=== PATIENT | male | born 1940 | race Caucasian/White ===

== ENCOUNTER 2023-06-28 13:32 | Outpatient (RCR) | payer MEDICARE, BC, SELFPAY | END 2023-06-28 23:59 | disposition home or self-care (01) | LOC: CRHB 13:32 | PROVIDERS: ATTENDING PHYSICIAN Internal Medicine Cardiovascular Disease; FAMILY PHYSICIAN Internal Medicine | DX: I25.10 Atherosclerotic heart disease of native coronary artery without angina pectoris (principal); Z95.1 Presence of aortocoronary bypass graft | CPT/HCPCS: G0422; G0423 ==

== ENCOUNTER → 2023-07-01 09:54 | Outpatient (REF) | payer MEDICARE, BC, SELFPAY ==
[2023-07-01 10:15] VITALS: BP 144/80; BP_SYST 94
[2023-07-01 10:38] VITALS: BP 136/65; BP_SYST 77
[2023-07-01 11:00] VITALS: BP_SYST 81
[2023-07-01 11:35] VITALS: BP 104/55; BP_SYST 81
[2023-07-01 12:12] LABS: Body Fluid Mononuclear 97.8 %; Body Fluid Polymorphonuclear 2.2 %; Body Fluid WBC 696 /CUMM
[2023-07-01 12:16] LABS: Body Fluid Second Tech BP
[2023-07-01 12:18] VITALS: BP 112/66
[2023-07-01 12:24] LABS: Body Fluid Albumin 2.3 g/dl; Body Fluid LDH 142 U/L
[2023-07-01 13:36] LABS: Body Fluid Triglycerides 1123 mg/dl
== END ==
LOC: RADI 09:54
PROVIDERS: ATTENDING PHYSICIAN Internal Medicine Cardiovascular Disease; FAMILY PHYSICIAN Internal Medicine
DX: J90 Pleural effusion, not elsewhere classified (principal); J93.9 Pneumothorax, unspecified
CPT/HCPCS: 88305; 32555; 71045; 82042; 83615; 84478; 88112; 89051

== ENCOUNTER → 2023-07-08 10:50 | Outpatient (REF) | payer MEDICARE, BC, SELFPAY | LOC: RAD 10:50 | PROVIDERS: ATTENDING PHYSICIAN Internal Medicine Cardiovascular Disease; FAMILY PHYSICIAN Internal Medicine; REFERRING PHYSICIAN Internal Medicine | DX: I44.30 Unspecified atrioventricular block (principal); I25.10 Atherosclerotic heart disease of native coronary artery without angina pectoris; I10 Essential (primary) hypertension; R91.8 Other nonspecific abnormal finding of lung field; I65.22 Occlusion and stenosis of left carotid artery | CPT/HCPCS: 71046 ==

== ENCOUNTER → 2023-07-10 11:19 | Outpatient (REF) | payer MEDICARE, BC, SELFPAY ==
[2023-07-10 11:52] LABS: % Basophils 0.5 % (0-2); % Eosinophils 0.9 % (0-6); % Immature Granulocytes 0.4 % (0-0.5); % Lymphocytes 9.5 % (20.5-51.1); % Monocytes 7.8 % (1.7-9.3); % Neutrophils 80.9 % (42.2-75.2); Absolute Eosinophils 0.1 10^3/uL (0-0.7); Absolute Lymphocytes 0.7 10^3/uL (1.2-3.4); Absolute Monocytes 0.6 10^3/uL (0.1-0.6); Absolute Neutrophils 6.2 10^3/uL (1.4-6.5); Hematocrit 42.1 % (39.0-52.0); Hemoglobin 13.9 g/dL (13.0-18.0); Mean Corpuscular Hgb 28.3 pg (27.0-31.0); Mean Corpuscular Volume 85.7 fL (80.0-94.0); Mean Platelet Volume 9.6 fL (7.4-10.4); Nucleated Red Blood Cells % 0 % (-); Platelet Count 237 10^3/uL (130-400); Red Blood Cell Count 4.91 10^6/uL (4.70-6.10); Red Cell Dist. Width 14.9 % (11.5-14.5); White Blood Cell Count 7.7 10^3/uL (4.8-10.8)
[2023-07-10 11:54] LABS: Urine Albumin Trace (Neg - Trace); Urine Bilirubin Negative (Negative); Urine Character Clear (Clear); Urine Color Yellow; Urine Glucose Negative (Negative); Urine Ketone Negative (Negative); Urine Leukocyte Negative (Negative); Urine Nitrite Negative (Negative); Urine Occult Blood Negative (Negative); Urine Urobilinogen Negative (Neg - 1+); Urine pH 6.5 (5.0-9.0)
[2023-07-10 12:18] LABS: ALT (SGPT) 11 U/L (0-50); AST (SGOT) 21 U/L (17-59); Albumin 3.7 g/dl (3.5-5.0); Alkaline Phosphatase 75 U/L (38-126); Blood Urea Nitrogen 13 mg/dl (9-20); Calcium 9.6 mg/dl (8.4-10.2); Carbon Dioxide 27 mmol/L (22-30); Chloride 102 mmol/L (98-107); Glucose 121 mg/dl (70-99); HDL Cholesterol 73 mg/dl; LDL Cholesterol, Calculated 79 mg/dl; Potassium 3.9 mmol/L (3.5-5.1); Sodium 140 mmol/L (135-145); Total Bilirubin 0.6 mg/dl (0.2-1.3); Total Cholesterol 169 mg/dl (50-199); Total Protein 6.7 g/dl (6.3-8.2); Triglyceride 86 mg/dl (10-149); Very Low Density Lipoprotein 17 mg/dl (0-30); eGFR > 60.00
[2023-07-10 12:39] LABS: Urine Mucus Few; Urine Sperm Seen; Urine Squamous Cell 0-2 /LPF (Few)
[2023-07-10 12:40] LABS: Urine Bacteria Few (Negative); Urine Red Blood Cell 0-2 /HPF (0-2); Urine White Cell 0-2 /HPF (0-5)
== END ==
LOC: REG 11:19
PROVIDERS: ATTENDING PHYSICIAN Internal Medicine
DX: I65.29 Occlusion and stenosis of unspecified carotid artery (principal); I10 Essential (primary) hypertension; E78.00 Pure hypercholesterolemia, unspecified
CPT/HCPCS: 36415; 80053; 80061; 81003; 81015; 85025

== ENCOUNTER → 2023-07-13 08:55 | Outpatient (REF) | payer MEDICARE, BC, SELFPAY | LOC: RAD 08:55 | PROVIDERS: ATTENDING PHYSICIAN Internal Medicine; FAMILY PHYSICIAN Family Medicine | DX: J94.0 Chylous effusion (principal) | CPT/HCPCS: 71250 ==

== ENCOUNTER → 2023-08-15 11:25 | Outpatient (REF) | payer MEDICARE, BC, SELFPAY | LOC: RAD 11:25 | PROVIDERS: ATTENDING PHYSICIAN Nurse Practitioner Family; FAMILY PHYSICIAN Internal Medicine | DX: J90 Pleural effusion, not elsewhere classified (principal); R06.02 Shortness of breath | CPT/HCPCS: 71046 ==

== ENCOUNTER → 2023-08-20 12:11 | Outpatient (REF) | payer MEDICARE, BC, SELFPAY ==
[2023-08-20 13:44] LABS: Body Fluid pH 7.44
[2023-08-20 13:57] LABS: Body Fluid Glucose 96 mg/dl; Body Fluid LDH 125 U/L; Body Fluid Protein 4.5 g/dl
[2023-08-20 14:42] LABS: Body Fluid Mononuclear 98.4 %; Body Fluid Polymorphonuclear 1.6 %; Body Fluid WBC 811 /CUMM
[2023-08-20 14:43] LABS: Body Fluid Second Tech BP
== END ==
LOC: RADI 12:11
PROVIDERS: ATTENDING PHYSICIAN Nurse Practitioner Family; FAMILY PHYSICIAN Internal Medicine
DX: J90 Pleural effusion, not elsewhere classified (principal)
CPT/HCPCS: 88305; 32555; 71045; 82945; 83615; 83986; 84157; 87015; 87070; 87102; 87116; 87205; 87206; 88112; 88341; 88342; 89051

== ENCOUNTER 2023-08-22 11:43 | Emergency (ER) | payer MEDICARE, BC, SELFPAY ==
[2023-08-22 11:52] VITALS: BP 103/81
[2023-08-22 12:10] LABS: % Basophils 0.4 % (0-2); % Eosinophils 0.5 % (0-6); % Immature Granulocytes 0.1 % (0-0.5); % Lymphocytes 7.2 % (20.5-51.1); % Monocytes 12.5 % (1.7-9.3); % Neutrophils 79.3 % (42.2-75.2); Absolute Lymphocytes 0.6 10^3/uL (1.2-3.4); Absolute Neutrophils 6.4 10^3/uL (1.4-6.5); Hematocrit 43.8 % (39.0-52.0); Mean Corpuscular Hgb 27.7 pg (27.0-31.0); Mean Corpuscular Volume 86.6 fL (80.0-94.0); Nucleated Red Blood Cells % 0 % (-); Platelet Count 216 10^3/uL (130-400); Red Blood Cell Count 5.06 10^6/uL (4.70-6.10); Red Cell Dist. Width 14.8 % (11.5-14.5); White Blood Cell Count 8.1 10^3/uL (4.8-10.8)
[2023-08-22 12:23] LABS: ALT (SGPT) 10 U/L (0-50); AST (SGOT) 18 U/L (17-59); Albumin 4.1 g/dl (3.5-5.0); Alkaline Phosphatase 63 U/L (38-126); Blood Urea Nitrogen 15 mg/dl (9-20); Calcium 9.1 mg/dl (8.4-10.2); Carbon Dioxide 25 mmol/L (22-30); Chloride 104 mmol/L (98-107); Glucose 125 mg/dl (70-99); Sodium 136 mmol/L (135-145); Total Bilirubin 0.8 mg/dl (0.2-1.3); Total Protein 7.1 g/dl (6.3-8.2); eGFR > 60.00
--- NOTE | 2023-08-22 14:23 | ED.GENMED ---
History of Present Illness
General
Chief Complaint: Post Operative Problem(s)
Time Seen by Provider: 08/22/23 13:14
Travel History
Have you had any contact with someone who has COVID-19?: No
Do you have any symptoms of coronavirus? Fever > 100 degrees, chills, cough, shortness of breath, sore throat, loss of taste or smell, muscle aches, or headache?: No
History of Present Illness
History of Present Illness:
82 yo male presents for evaluation of blood tinged sputum. He had 1 episode of blood-tinged sputum this morning. He is concerned because he had a thoracentesis 2 days ago. 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
complication of his recent CABG procedure that was done at [facility] in February. He currently denies any chest pain or difficulty breathing. He does take Plavix and aspirin.
Past History
Past History
ED Past Medical History: HTN and Hypercholesterolemia
ED Past Surgical History: Other (carotid artery surgery )
Social History
Tobacco: Non-smoker
Personal:
Living: with family
Review of Systems
Review of Systems
Allergies reviewed?: Yes
All Other Systems: ROS reviewed and negative except as documented in HPI and ROS
Phy Exam
Physical Exam
Physical Exam:
GEN: Well appearing, NAD, WDWN
HEENT: Oral mucosa moist, no scleral icterus, no evidence for oropharyngeal bleeding, some evidence of recent bleeding to the left anterior nare
Cardiac: Regular rate
Lung: No respiratory distress, no tachypnea, lungs clear to auscultation with the exception of the left lower field crackles are noted. Left posterior lateral thoracentesis site has mild ecchymosis with no large hematoma and no active bleeding
MSK: No gross deformity or injuries
Skin: Good color, no pallor or jaundice, no rashes
Neuro: AO x3, moves all extremities freely
Psych: Calm, cooperative
Course
Orders/Labs/Results
Orders:
Orders
08/22/23 12:01
Complete Blood Count/With Diff Urgent
Comprehensive Metabolic Panel Urgent
08/22/23 13:44
CR Chest - 2 Views Urgent
Comment:
Reason For Exam: hemoptysis
Abnormal Lab Results
08/22/23
12:01
MCHC 32.0 L g/dL
(33.0-37.0)
RDW 14.8 H %
(11.5-14.5)
Absolute Lymphs (auto) 0.6 L 10^3/uL
(1.2-3.4)
Absolute Monos (auto) 1.0 H 10^3/uL
(0.1-0.6)
Neutrophils % 79.3 H %
(42.2-75.2)
Lymphocytes % 7.2 L %
(20.5-51.1)
Monocytes % 12.5 H %
(1.7-9.3)
Glucose 125 H mg/dl
(70-99)
08/22/23 12:01
08/22/23 12:01
Vital Signs
Initial and Last Documented VS:
Initial Vital Signs
Temp Pulse Resp BP Pulse Ox
98.0 F 91 18 103/81 97
08/22/23 11:52 08/22/23 11:52 08/22/23 11:52 08/22/23 11:52 08/22/23 11:52
Last Documented Vital Signs
Temp Pulse Resp BP Pulse Ox
98.0 F 91 18 124/61 96
08/22/23 11:52 08/22/23 14:39 08/22/23 14:39 08/22/23 14:39 08/22/23 14:39
MDM/Problems Addressed
MDM/Problems Addressed:
Do not feel that the thoracentesis contributed to the blood-tinged sputum. Could be residual blood from the left nare however overall the patient is clinically well with no hypoxia and no increased work of breathing. Chest x-ray shows a relatively
stable effusion. Recommend he follow-up as an outpatient with his crime scene technician. Any worsening hemoptysis should warrant return to the emergency department
*Critical Care Note
Total Time (30-74mins, 75-104mins- exclusive of procedures): Not Applicable
ED Attending Note
-
Portions of this chart may have been created with voice recognition software.� Occasional wrong word or��sound alike� substitutions may have occurred due to the inherent limitations of voice recognition software.
Discharge Plan
Departure
Patient Disposition: Home (Routine Discharge)
Date of Disposition: 08/22/23
Time of Disposition: 14:48
Patient with high blood pressure during this ER visit?: No
Discharge Problem:
Blood-tinged sputum
Instructions: Coughing up blood
Prescriptions:
No Action
clopidogrel 75 MG tablet
75 mg PO DAILY
alprazolam 0.25 MG tablet
0.25 mg PO TID
gemfibrozil 600 MG tablet
600 mg PO BID
ezetimibe 10 MG tablet
10 mg PO HS
rosuvastatin [Crestor] 40 MG tablet
40 mg PO BID
aspirin 81 mg Tablet,Delayed Release (Dr/Ec)
81 mg PO DAILY
nifedipine 90 mg Tablet Extended Release 24hr
90 mg PO DAILY
niacin 250 mg Tablet
1,000 mg PO DAILY
metoprolol tartrate 25 mg Tablet
25 mg PO BID
Referrals:
Myles Gillis MD [Family Provider] -
Activity Restrictions/Additional Instructions:
The amount of blood you coughed up is not concerning
Your repeat X ray shows some residual fluid however no sign of lung injury
Please follow up with your crime scene technician if symptoms persist
Interventions
Interventions:
*Risk Screen - Suicide Last Done: 08/22/23 11:52
*General Assessment Last Done: 08/22/23 11:52
*Neglect/Abuse Screening Last Done: 08/22/23 11:52
*ED COVID-19 Vaccine History Last Done: 08/22/23 11:52
[2023-08-22 14:37] VITALS: BMI 23.9
[2023-08-22 14:39] VITALS: BP 124/61
== END 2023-08-22 15:50 | disposition home or self-care (01) ==
LOC: EMR 11:43
PROVIDERS: Emergency Medicine; EMERGENCY PHYSICIAN Emergency Medicine; FAMILY PHYSICIAN Internal Medicine
DX: R04.2 Hemoptysis (principal)
CPT/HCPCS: 99284; 71046; 80053; 85025

== ENCOUNTER → 2023-09-25 10:21 | Outpatient (REF) | payer MEDICARE, BC, SELFPAY | LOC: RCS 10:21 | PROVIDERS: ATTENDING PHYSICIAN Internal Medicine Cardiovascular Disease; FAMILY PHYSICIAN Internal Medicine; REFERRING PHYSICIAN Internal Medicine | DX: I44.30 Unspecified atrioventricular block (principal) | CPT/HCPCS: 93225; 93226 ==

== ENCOUNTER → 2023-10-02 10:43 | Outpatient (REF) | payer MEDICARE, BC, SELFPAY | LOC: RAD 10:43 | PROVIDERS: ATTENDING PHYSICIAN Internal Medicine | DX: I71.40 Abdominal aortic aneurysm, without rupture, unspecified (principal); I65.29 Occlusion and stenosis of unspecified carotid artery; I65.23 Occlusion and stenosis of bilateral carotid arteries | CPT/HCPCS: 76770; 93880 ==

== ENCOUNTER → 2023-10-14 09:02 | Outpatient (REF) | payer MEDICARE, BC, SELFPAY ==
[2023-10-14 10:24] LABS: % Basophils 0.7 % (0-2); % Eosinophils 1.9 % (0-6); % Immature Granulocytes 0.4 % (0-0.5); % Lymphocytes 11.1 % (20.5-51.1); % Monocytes 9.5 % (1.7-9.3); % Neutrophils 76.4 % (42.2-75.2); Absolute Basophils 0.1 10^3/uL (0-0.2); Absolute Eosinophils 0.1 10^3/uL (0-0.7); Absolute Lymphocytes 0.8 10^3/uL (1.2-3.4); Absolute Monocytes 0.7 10^3/uL (0.1-0.6); Absolute Neutrophils 5.7 10^3/uL (1.4-6.5); Hematocrit 42.5 % (39.0-52.0); Mean Corp Hgb Conc. 32.9 g/dL (33.0-37.0); Mean Corpuscular Hgb 28.3 pg (27.0-31.0); Mean Platelet Volume 10.1 fL (7.4-10.4); Nucleated Red Blood Cells % 0 % (-); Platelet Count 233 10^3/uL (130-400); Red Blood Cell Count 4.94 10^6/uL (4.70-6.10); White Blood Cell Count 7.5 10^3/uL (4.8-10.8)
[2023-10-14 10:39] LABS: Urine Albumin Trace (Neg - Trace); Urine Bilirubin Negative (Negative); Urine Character Clear (Clear); Urine Color Yellow; Urine Glucose Negative (Negative); Urine Ketone Negative (Negative); Urine Leukocyte Negative (Negative); Urine Nitrite Negative (Negative); Urine Occult Blood Negative (Negative); Urine Urobilinogen Negative (Neg - 1+); Urine pH 6.5 (5.0-9.0)
[2023-10-14 10:59] LABS: ALT (SGPT) 11 U/L (0-50); AST (SGOT) 19 U/L (17-59); Alkaline Phosphatase 65 U/L (38-126); Blood Urea Nitrogen 17 mg/dl (9-20); Calcium 9.7 mg/dl (8.4-10.2); Carbon Dioxide 27 mmol/L (22-30); Chloride 104 mmol/L (98-107); Glucose 100 mg/dl (70-99); HDL Cholesterol 77 mg/dl; LDL Cholesterol, Calculated 75 mg/dl; Potassium 4.2 mmol/L (3.5-5.1); Sodium 139 mmol/L (135-145); Total Bilirubin 0.6 mg/dl (0.2-1.3); Total Cholesterol 166 mg/dl (50-199); Total Protein 6.9 g/dl (6.3-8.2); Triglyceride 74 mg/dl (10-149); Very Low Density Lipoprotein 14 mg/dl (0-30); eGFR > 60.00
== END ==
LOC: REG 09:02
PROVIDERS: ATTENDING PHYSICIAN Internal Medicine
DX: E78.00 Pure hypercholesterolemia, unspecified (principal); I10 Essential (primary) hypertension; I65.29 Occlusion and stenosis of unspecified carotid artery
CPT/HCPCS: 36415; 80053; 80061; 81003; 85025

== ENCOUNTER → 2023-10-25 08:37 | Outpatient (REF) | payer MEDICARE, BC, SELFPAY ==
[2023-10-25 10:19] LABS: HDL Cholesterol 78 mg/dl; LDL Cholesterol, Calculated 79 mg/dl; Total Cholesterol 177 mg/dl (50-199); Triglyceride 100 mg/dl (10-149); Very Low Density Lipoprotein 20 mg/dl (0-30)
== END ==
LOC: REG 08:37
PROVIDERS: ATTENDING PHYSICIAN Internal Medicine Cardiovascular Disease; FAMILY PHYSICIAN Internal Medicine; REFERRING PHYSICIAN Internal Medicine
DX: I10 Essential (primary) hypertension (principal); I65.23 Occlusion and stenosis of bilateral carotid arteries; I25.10 Atherosclerotic heart disease of native coronary artery without angina pectoris; I65.22 Occlusion and stenosis of left carotid artery
CPT/HCPCS: 36415; 80061

== ENCOUNTER → 2024-01-17 11:38 | Outpatient (REF) | payer MEDICARE, BC, SELFPAY ==
[2024-01-17 12:57] LABS: % Basophils 0.7 % (0-2); % Eosinophils 2.2 % (0-6); % Immature Granulocytes 0.3 % (0-0.5); % Lymphocytes 14.7 % (20.5-51.1); % Monocytes 9.7 % (1.7-9.3); % Neutrophils 72.4 % (42.2-75.2); Absolute Basophils 0.1 10^3/uL (0-0.2); Absolute Eosinophils 0.2 10^3/uL (0-0.7); Absolute Lymphocytes 1.1 10^3/uL (1.2-3.4); Absolute Monocytes 0.7 10^3/uL (0.1-0.6); Absolute Neutrophils 5.4 10^3/uL (1.4-6.5); Hematocrit 42.8 % (39.0-52.0); Hemoglobin 14.9 g/dL (13.0-18.0); Mean Corp Hgb Conc. 34.8 g/dL (33.0-37.0); Mean Corpuscular Hgb 29.3 pg (27.0-31.0); Mean Corpuscular Volume 84.3 fL (80.0-94.0); Mean Platelet Volume 9.9 fL (7.4-10.4); Nucleated Red Blood Cells % 0 % (-); Platelet Count 197 10^3/uL (130-400); Red Blood Cell Count 5.08 10^6/uL (4.70-6.10); Red Cell Dist. Width 14.2 % (11.5-14.5); White Blood Cell Count 7.4 10^3/uL (4.8-10.8)
[2024-01-17 13:11] LABS: Urine Albumin Trace (Neg - Trace); Urine Bilirubin Negative (Negative); Urine Character Clear (Clear); Urine Color Yellow; Urine Glucose Negative (Negative); Urine Ketone Negative (Negative); Urine Leukocyte Negative (Negative); Urine Nitrite Negative (Negative); Urine Occult Blood Negative (Negative); Urine Specific Gravity 1.015 (<1.030); Urine Urobilinogen Negative (Neg - 1+); Urine pH 6.5 (5.0-9.0)
[2024-01-17 13:35] LABS: ALT (SGPT) 16 U/L (0-50); AST (SGOT) 25 U/L (17-59); Albumin 4.5 g/dl (3.5-5.0); Alkaline Phosphatase 69 U/L (38-126); Blood Urea Nitrogen 17 mg/dl (9-20); Calcium 9.6 mg/dl (8.4-10.2); Carbon Dioxide 25 mmol/L (22-30); Chloride 104 mmol/L (98-107); Glucose 100 mg/dl (70-99); HDL Cholesterol 84 mg/dl; LDL Cholesterol, Calculated 86 mg/dl; Sodium 137 mmol/L (135-145); Total Cholesterol 188 mg/dl (50-199); Total Protein 7.3 g/dl (6.3-8.2); Triglyceride 94 mg/dl (10-149); Very Low Density Lipoprotein 18 mg/dl (0-30); eGFR > 60.00
[2024-01-20 04:25] LABS: Lipoprotein a (Lp a) 218 mg/dL (<=29)
== END ==
LOC: REG 11:38
PROVIDERS: ATTENDING PHYSICIAN Internal Medicine; REFERRING PHYSICIAN Internal Medicine
DX: I10 Essential (primary) hypertension (principal); I65.29 Occlusion and stenosis of unspecified carotid artery; E78.00 Pure hypercholesterolemia, unspecified
CPT/HCPCS: 36415; 80053; 80061; 81003; 83695; 85025

== ENCOUNTER → 2024-02-15 09:35 | Outpatient (REF) | payer MEDICARE, BC, SELFPAY ==
[2024-02-15 10:24] LABS: % Basophils 0.5 % (0-2); % Eosinophils 1.5 % (0-6); % Immature Granulocytes 0.3 % (0-0.5); % Lymphocytes 11.5 % (20.5-51.1); % Monocytes 7.5 % (1.7-9.3); % Neutrophils 78.7 % (42.2-75.2); Absolute Eosinophils 0.1 10^3/uL (0-0.7); Absolute Lymphocytes 0.9 10^3/uL (1.2-3.4); Absolute Monocytes 0.6 10^3/uL (0.1-0.6); Absolute Neutrophils 6.3 10^3/uL (1.4-6.5); Hematocrit 45.1 % (39.0-52.0); Hemoglobin 15.4 g/dL (13.0-18.0); Mean Corp Hgb Conc. 34.1 g/dL (33.0-37.0); Mean Corpuscular Hgb 30.1 pg (27.0-31.0); Mean Corpuscular Volume 88.1 fL (80.0-94.0); Mean Platelet Volume 9.8 fL (7.4-10.4); Nucleated Red Blood Cells % 0 % (-); Platelet Count 171 10^3/uL (130-400); Red Blood Cell Count 5.12 10^6/uL (4.70-6.10); Red Cell Dist. Width 14.2 % (11.5-14.5)
[2024-02-15 10:50] LABS: ALT (SGPT) 11 U/L (0-50); AST (SGOT) 21 U/L (17-59); Albumin 4.4 g/dl (3.5-5.0); Alkaline Phosphatase 68 U/L (38-126); Blood Urea Nitrogen 20 mg/dl (9-20); Calcium 9.5 mg/dl (8.4-10.2); Carbon Dioxide 26 mmol/L (22-30); Chloride 102 mmol/L (98-107); Glucose 104 mg/dl (70-99); HDL Cholesterol 87 mg/dl; LDL Cholesterol, Calculated 88 mg/dl; Potassium 4.4 mmol/L (3.5-5.1); Sodium 140 mmol/L (135-145); Total Cholesterol 198 mg/dl (50-199); Triglyceride 118 mg/dl (10-149); Very Low Density Lipoprotein 23 mg/dl (0-30); eGFR > 60.00
[2024-02-15 10:55] LABS: Urine Albumin Trace (Neg - Trace); Urine Bilirubin 1+ (Negative); Urine Character Clear (Clear); Urine Color Yellow; Urine Glucose Negative (Negative); Urine Ketone Negative (Negative); Urine Leukocyte Negative (Negative); Urine Nitrite Negative (Negative); Urine Occult Blood Negative (Negative); Urine Specific Gravity 1.015 (<1.030); Urine Urobilinogen Negative (Neg - 1+)
== END ==
LOC: REG 09:35
PROVIDERS: ATTENDING PHYSICIAN Internal Medicine; REFERRING PHYSICIAN Internal Medicine
DX: D64.9 Anemia, unspecified (principal); E78.00 Pure hypercholesterolemia, unspecified; E87.8 Other disorders of electrolyte and fluid balance, not elsewhere classified
CPT/HCPCS: 36415; 80053; 80061; 81003; 85025

== ENCOUNTER → 2024-03-06 09:57 | Outpatient (REF) | payer MEDICARE, BC, SELFPAY ==
[2024-03-06 10:57] LABS: Blood Urea Nitrogen 21 mg/dl (9-20); Calcium 9.6 mg/dl (8.4-10.2); Carbon Dioxide 24 mmol/L (22-30); Chloride 102 mmol/L (98-107); Glucose 104 mg/dl (70-99); Potassium 4.4 mmol/L (3.5-5.1); Sodium 139 mmol/L (135-145); eGFR > 60.00
== END ==
LOC: REG 09:57
PROVIDERS: ATTENDING PHYSICIAN Surgery Vascular Surgery; FAMILY PHYSICIAN Internal Medicine
DX: I71.43 Infrarenal abdominal aortic aneurysm, without rupture (principal)
CPT/HCPCS: 36415; 80048

== ENCOUNTER 2024-03-15 17:37 | Inpatient (IN) | payer MEDICARE, BC, SELFPAY ==
[2024-03-15] VITALS (12 sets, daily range): BP systolic 121–180; BP diastolic 76–100; BMI 25.7; BMI 25.6
--- NOTE | 2024-03-15 15:47 | ED.CVA ---
History of Present Illness
General
Chief Complaint: CVA/TIA Symptoms
Source: patient, records and ambulance crew
Time Seen by Provider: 03/15/24 15:46
Onset of Stroke Symptoms
Onset of symptoms known: Yes
Date of onset of symptoms: 03/15/24
Time of onset of symptoms: 13:45
History of Present Illness
History of Present Illness:
3:49 PM 83-year-old male brought to the emergency department by medics, history obtained by medics, awaiting family to arrive. He reportedly was seen at approximately 1:45 PM and noted to have the abrupt onset of aphasia. Medics note that
Accu-Chek was 107. They are unclear of prior medical history or whether or not patient is on anticoagulation. They did not note focal weakness, facial droop, or speech abnormalities in regards to slurred speech. They state that with every
question or interaction he simply states 'okay'. History very limited from patient given his expressive aphasia. He was immediately brought to CT scan.
Past History
Past History
ED Past Medical History: CAD, HTN, Hypercholesterolemia and Other (Chylothorax)
ED Past Surgical History: Other (carotid artery surgery, CABG)
Social History
Tobacco: Non-smoker
Alcohol: None
Drug: None
Personal:
Living: with family
Phy Exam
Physical Exam
Physical Exam:
GENERAL: Alert , in no apparent distress
EYE: pupils equal and reactive, EOMI, no nystagmus, no photophobia
NECK: Supple, no significant adenopathy.
ENT: o/p clr, mmm.
CARDIAC: Regular rate and rhythm .
LUNGS: Clear breath sounds bilaterally, no acute respiratory distress, no wheezes/rales/rhonchi
ABDOMEN: Soft, without focal tenderness, no r/g, no cvat
NEUROLOGICAL: Alert and oriented, no focal neuro deficits except for severe aphasia, motor intact, sensation intact to light touch, etc.
SKIN: Warm and dry, skin intact.
MUSCULOSKELETAL: No edema, well perfused.
PSYCH: Normal and appropriate interaction.
Scores
NIH Stroke Score
Level of Consciousness: 0 - Alert
LOC Questions: 2-Neither correct
LOC Commands: 0-Performs both correctly
Best Horizontal Gaze: 0-Normal
Visual Sherwood: 0=Normal, no visual loss
Facial Palsy: 0=Normal, symmetrical
Motor - Right Arm: 0=No drift 10 seconds
Motor - Left Arm: 0=No drift 10 seconds
Motor - Right Le-No drift 5 seconds
Motor - Left Le-No drift 5 seconds
Limb Ataxia: 0-Absent
Sensation: 0-Normal
Best Language: 2-Severe aphasia
Dysarthria: 0-Normal
Extinction and Inattention: 0-No abnormality
Total Score:: 4
Course
Orders/Labs/Results
Orders:
Orders
03/15/24 15:46
Electrocardiogram (*1) Stat
Reason for Study: Other
Other Reason for Exam: neuro symptoms
CT HEAD STROKE ALERT W/o Cont Urgent
Comment:
Reason For Exam: APHASIA
CT HEAD/NECK ANG STROKE ALERT Urgent
Comment:
Reason For Exam: APHASIA
Cardiac Monitoring- Treatment ONCE
EKG- Treatment ONCE
03/15/24 16:09
Complete Blood Count/No Diff Urgent
Comprehensive Metabolic Panel Urgent
PTT Urgent
Prothrombin Time Urgent
Troponin I Urgent
Abnormal Lab Results
03/15/24 03/15/24
16:05 16:09
RBC 4.61 L 10^6/uL
(4.70-6.10)
BUN 23 H mg/dl
(9-20)
Glucose 108 H mg/dl
(70-99)
POC Glucose 100 H mg/dl
(70-99)
03/15/24 16:09
03/15/24 16:09
Vital Signs
Initial and Last Documented VS:
Initial Vital Signs
Temp Pulse Resp BP Pulse Ox
99.4 F 98 16 180/94 98
03/15/24 15:44 03/15/24 15:44 03/15/24 15:44 03/15/24 15:44 03/15/24 15:44
Last Documented Vital Signs
Temp Pulse Resp BP Pulse Ox
99.4 F 95 14 152/93 97
03/15/24 15:44 03/15/24 16:45 03/15/24 16:45 03/15/24 16:45 03/15/24 16:25
*Critical Care Note
Total Time (30-74mins, 75-104mins- exclusive of procedures): 30
Update Note
Update Note:
Patient presents to the Emergency Department with aphasia
Number and Complexity of Problems Addressed at the Encounter
� Chronic conditions affecting care:
� Acute Exacerbation and/or Progression of Chronic Illness:
� Differential Diagnosis includes: But not limited to TIA, CVA, SAH, etc. etc.
Amount and/or Complexity of Data to be Reviewed and Analyzed
� I performed an independent evaluation of and my interpretation is:
EKG: Read by me, normal sinus rhythm, nonspecific T wave inversions particularly laterally
CT: Dr. Miranda, CT NAD CTA: Status post right carotid endarterectomy with no evidence for significant stenosis.
Atherosclerotic disease of the left carotid bulb and proximal left ICA, measured diameter reduction of 66%. On previous cerebrovascular ultrasound, velocity measurements compatible with greater than 70% diameter reduction.
No evidence for large vessel occlusion in the intracranial circulation.
Dominant left vertebral artery with smaller caliber right vertebral artery. No evidence for significant stenosis or dissection.
Focal calcification at the origin of the right subclavian artery, and could possibly represent a hemodynamically significant stenosis.
Xrays:
Laboratory Studies:generally unremkarable
Other:
� Review of other/old records reveals: August 2023 patient seen in the ER status postthoracentesis from a recurrent chylothorax from recent CABG procedure
� Clinical information was obtained by an independent historian:
� Prescriptions/Medications Considered but not given: Considered TNK but patient not a candidate as below
� Further testing considered but not performed:
Risk of Complications and/or Morbidity or Mortality of Patient Management
� Social determinants of health affecting care:
� Discussion with other providers (PCP, Hospitalists, Consultants, etc): I called and left message on home phone...in interim, neurologist d/w via cell phone, she confirms that pt was LKN at 12:00 today. Neighbors
noted pt confused, trying to get into car unsuccessfully, etc and tried to call her about 2hrs before EMS arrival, had trouble reachign her etc. Neighbors did NOT see pt normal, confirming that LKN was 12:00. As such, and in d/w neuro and ,
risks outweight benefit for tnk...greater than 3-3.5 hours in context of age greater than 80.
4:25 PM at bedside, I updated her and regarding his presumed diagnosis, contraindications to thrombolysis, etc. CTA report pending.
� Escalation of care including admission/observation vs risk of discharge considered: 500 pm, neuro consult reviewed, I ordered asa and plavix load, case d/w dr kaur via tt, for admission. Pt's bp does not qualify for lowering
agents at this time.
ED Attending Note
-
Portions of this chart may have been created with voice recognition software.� Occasional wrong word or��sound alike� substitutions may have occurred due to the inherent limitations of voice recognition software.
Discharge Plan
Departure
Patient Disposition: Admit
Date of Disposition: 03/15/24
Time of Disposition: 17:00
Admit to: Telemetry
Admit to doctor: natasha
Presentation/result/management discussed w/ accepting MD/DO: Hospitalist
Condition: Fair
Discharge Problem:
Acute CVA (cerebrovascular accident)
Prescriptions:
No Action
clopidogrel 75 MG tablet
75 mg PO DAILY
alprazolam 0.25 MG tablet
0.25 mg PO TID
gemfibrozil 600 MG tablet
600 mg PO BID
ezetimibe 10 MG tablet
10 mg PO HS
rosuvastatin [Crestor] 40 MG tablet
40 mg PO BID
aspirin 81 mg Tablet,Delayed Release (Dr/Ec)
81 mg PO DAILY
nifedipine 90 mg Tablet Extended Release 24hr
90 mg PO DAILY
metoprolol tartrate 25 mg Tablet
25 mg PO BID
furosemide [Lasix] 20 mg Tablet
20 mg PO MOWEFR
tobramycin-dexamethasone 0.3-0.1 % drops,suspension
1 drp BOTH EYES TID
Interventions
Interventions:
*Risk Screen - Suicide Last Done: 03/15/24 16:21
*General Assessment Last Done: 03/15/24 16:21
*Neglect/Abuse Screening Last Done: 03/15/24 16:21
ED- Fall Risk Assessment Last Done: 03/15/24 15:44
*ED COVID-19 Vaccine History Last Done: 03/15/24 16:00
ED- Pulmonary Assessment Last Done: 03/15/24 15:44
ED- Neurological Assessment Last Done: 03/15/24 15:44
ED- Cardiac Assessment Last Done: 03/15/24 15:44
ED Swallowing Screen Last Done: 03/15/24 15:44
Discharge Date and Time
Print Language: WELSH
[2024-03-15 16:15] LABS: Glucose - Point of Care 100 mg/dl (70-99)
[2024-03-15 16:15] LABS: Hematocrit 40.1 % (39.0-52.0); Mean Corp Hgb Conc. 34.9 g/dL (33.0-37.0); Mean Corpuscular Hgb 30.4 pg (27.0-31.0); Platelet Count 152 10^3/uL (130-400); Red Blood Cell Count 4.61 10^6/uL (4.70-6.10); Red Cell Dist. Width 13.2 % (11.5-14.5); White Blood Cell Count 7.6 10^3/uL (4.8-10.8)
[2024-03-15 16:25] LABS: INR 1.01; PT 13.1 Sec (11.4-14.6)
[2024-03-15 16:26] LABS: APTT 31.7 Sec (23.4-35.0)
[2024-03-15 16:38] LABS: Troponin I < 0.012 ng/ml
[2024-03-15 16:45] LABS: ALT (SGPT) 19 U/L (0-50); AST (SGOT) 24 U/L (17-59); Albumin 3.8 g/dl (3.5-5.0); Alkaline Phosphatase 62 U/L (38-126); Blood Urea Nitrogen 23 mg/dl (9-20); Calcium 8.6 mg/dl (8.4-10.2); Carbon Dioxide 24 mmol/L (22-30); Chloride 102 mmol/L (98-107); Estimated Creatinine Clearance 62 ml/min; Glucose 108 mg/dl (70-99); Potassium 3.8 mmol/L (3.5-5.1); Sodium 139 mmol/L (135-145); Total Bilirubin 0.8 mg/dl (0.2-1.3); Total Protein 6.4 g/dl (6.3-8.2); eGFR > 60.00
[2024-03-15] MEDS: LOW STRENGTH ASPIRIN 81 MG PO (17:05)
[2024-03-15] MEDS: PLAVIX 300 MG PO (17:05)
--- NOTE | 2024-03-15 17:28 | HPS.HSE ---
Family Physician
-
Family Physician: Paresh Perry
Chief Complaint
-
Abrupt onset of aphasia
History of Present Illness
83-year-old male with past medical history of CAD, hypertension, hyperlipidemia, chylothorax, CEA, CABG now presents for findings of abrupt onset of aphasia at approximately 1:45 PM. History limited due to expressive aphasia. No noted focal
weakness, facial droop, slurred speech or abnormalities. Patient just responded to all questions by stating ' okay' en route to the hospital. Last known normal usual state was noon today. Blood pressure noted to be 180/94, pulse 98, afebrile. CT
head with no acute infarcts. CT angiogram has shown left carotid bulb and proximal left ICA, reduction of 66%, this was at 70% on previous ultrasounds. Focal calcification at the origin of the right subclavian artery could represent
hemodynamically significant stenosis. Otherwise labs grossly unremarkable.
Medical History
Past Medical History
Past Medical History: Reports Other (PA-Fib, CAD, HTN, DLP,penile Basal cell carcinoma)
Past Surgical History: Reports Other
Additional Past Surgical History:
R ICA stent, CABG, inguinal hernia repair-bilateral,cataract extraction
Social History
Tobacco: Former Smoker
Personal:
Family History
Family History: Not pertinent
Allergies / Home Medications
Allergies reflects when Allergies were last updated in [facility].
Home Medications with original date entered in [facility]
Allergy/Medication List:
Allergies
Allergy/AdvReac Type Severity Reaction Status Date / Time
No Known Allergies Allergy Verified 03/15/24 15:44
Home Medications
alprazolam 0.25 mg tablet 0.25 mg PO TID 12/11/12
clopidogrel 75 mg tablet 75 mg PO DAILY 12/11/12
ezetimibe 10 mg tablet 10 mg PO HS 12/11/12
gemfibrozil 600 mg tablet 600 mg PO BID 12/11/12
rosuvastatin 40 mg tablet (Crestor) 40 mg PO BID 12/11/12
aspirin 81 mg tablet,delayed release 81 mg PO DAILY 07/01/23
metoprolol tartrate 25 mg tablet 25 mg PO BID 07/01/23
nifedipine 90 mg tablet,extended release 24 hr 90 mg PO DAILY 07/01/23
furosemide 20 mg tablet (Lasix) 20 mg PO MOWEFR 03/15/24
tobramycin 0.3 %-dexamethasone 0.1 % eye drops,suspension 1 drp BOTH EYES TID 03/15/24
Review of Systems
-
Unable to obtain full review of systems at this time due to: Acuity
A 12 point ROS was completed and negative except as noted: No
Physical Exam
Vital Signs
Vital Signs
Temp Pulse Resp BP Pulse Ox
99.4 F 95 14 152/93 97
03/15/24 15:44 03/15/24 16:45 03/15/24 16:45 03/15/24 16:45 03/15/24 16:25
Physical Exam
General: Well Developed and Well Nourished
HEENT: NormoCephalic and Anicteric
Respiratory: Clear
Cardiac: S1/S2
GI: Non Tender
Musculoskeletal: No Clubbing
Skin: Warm and Dry
Neuro: Awake, Alert and Other (severe aphasia; motor intact, sensation intact to light touch, etc.)
Psych: Calm
Laboratory Results
-
03/15/24 16:09
03/15/24 16:09
Laboratory Results
PT 13.1 Sec (11.4-14.6) 03/15/24 16:09
INR 1.01 03/15/24 16:09
APTT 31.7 Sec (23.4-35.0) 03/15/24 16:09
Total Bilirubin 0.8 mg/dl (0.2-1.3) 10/13/24 16:09
AST 24 U/L (17-59) 03/15/24 16:09
ALT 19 U/L (0-50) 03/15/24 16:09
Alkaline Phosphatase 62 U/L (38-126) 03/15/24 16:09
Troponin I < 0.012 ng/ml 03/15/24 16:09
Data Reviewed
-
CT Scan: Image Personally Visualized and interpreted and Report Reviewed by me
Lab Data: Labs Reviewed by me
Impression/Plan
-
IMPRESSION:
83-year-old male with past medical history of CAD, hypertension, hyperlipidemia, chylothorax, pAFib, CEA, CABG now presents for findings of abrupt onset of aphasia at approximately 1:45 PM. Concern for CVA/TIA and carotid stenosis
PLAN:
#Acute aphasia
TIA/CVA versus postictal
� Holding tPA due to age, timing of symptoms and arrival onset
� Permissive hypertension
� Aspiration precautions, speech eval
� Telemetry monitoring
� Continue aspirin 81 mg, Plavix
� Already on Crestor, continue
� Follow-up hemoglobin A1c, LDL
� Follow-up brain MRI without gadolinium
� ECHO
-DVT ppx
-CT angio with Focal calcification at the origin of the right subclavian artery, and could possibly represent a hemodynamically significant stenosis; no dissection
#Focal calcification at the origin of the right subclavian artery, and could possibly represent a hemodynamically significant stenosis
-dapt, asa
-consulted vascular
-Symptoms do not appear to reflect area of involvement
# Essential hypertension
#Hypertensive urgency
� Permissive hypertension due to possible stroke
� Hold asenapine
� Continue Lopressor due to atrial fibrillation
#Atrial fibrillation
� Continue Lopressor
� Unclear why not on anticoagulation
� Continue DAPT
# Hyperlipidemia
� Continue statin
� Follow-up LDL
#DVT prophylaxis
� HSQ
[2024-03-15] MEDS: XANAX 0.25 MG PO (22:12)
[2024-03-15] MEDS: ZETIA 10 MG PO (22:12)
[2024-03-15] MEDS: LOPRESSOR 25 MG PO (22:12)
[2024-03-15] MEDS: CRESTOR 40 MG PO (22:12)
[2024-03-15] MEDS: TYLENOL 650 MG PO (22:12)
[2024-03-15] MEDS: TOBRADEX EYE DROPS 1 DROP BOTH EYES (22:17)
--- NOTE | 2024-03-15 22:20 | PTCARENOTE ---
Pt received at change of shift at 1915. Pt VSS, AAOX1, and receptive to room and SO at bedside. Pt's SO helped answer admission questions as pt was exhibiting signs of aphasia and dysarthria. Pt scored a NIH stoke scale score of 6 due to confusion.
Bed alarm applied and plugged in. Pt's bed in lowest position and call [place] within reach. Pt informed of importance of call [place] usage, pt expressed understanding with a nod. Will continue with current plan of care.
[2024-03-15] MEDS: HEPARIN 5000 UNITS SC (23:16)
[2024-03-15] MEDS: APRESOLINE 5 MG IV (23:25)
[2024-03-16] VITALS (8 sets, daily range): BP systolic 121–187; BP diastolic 61–92; PULSE 62–63; O2SAT 96–97
[2024-03-16 06:43] LABS: Hemoglobin 14.4 g/dL (13.0-18.0); Mean Corpuscular Volume 83.3 fL (80.0-94.0); Mean Platelet Volume 9.6 fL (7.4-10.4); Platelet Count 171 10^3/uL (130-400); Red Cell Dist. Width 13.7 % (11.5-14.5); White Blood Cell Count 9.9 10^3/uL (4.8-10.8)
[2024-03-16 06:56] LABS: HDL Cholesterol 70 mg/dl; LDL Cholesterol, Calculated 71 mg/dl; Magnesium 1.8 mg/dl (1.6-2.3); Total Cholesterol 166 mg/dl (50-199); Triglyceride 125 mg/dl (10-149); Very Low Density Lipoprotein 25 mg/dl (0-30)
--- NOTE | 2024-03-16 09:42 | CON.VAS ---
Addendum entered and electronically signed by Orville Morales III, MD 03/17/24 11:06:
This patient was seen and examined with ISAIAH Mcadams. I agree with the history and physical exam as well as the assessment and plan. Please see my update note for additional information.
Signed:
Orville Morales III, MD
[facility] Vascular Surgery
[phone] (qpcd)
Original Note:
Consultation
Consultation Request
Date/Time Consultation Performed: 03/16/2430
Requesting Provider: Hospitalist
Performing Provider: Lisa Arthur, GARRISON-C for Rik Beltre MD
Reason for Consultation: Left carotid stenosis and right subclavian disease with suspected stroke
Medical History
-
Chief Complaint: Aphasia
History of Present Illness:
This is a right-handed 83-year-old male with significant past medical history for right carotid endarterectomy, AAA, atrial fibrillation, coronary artery disease, hypertension, and hyperlipidemia who presented to [place] ED on 03/15/2024 at
roughly 1540 with reports of aphasia by EMS. HPI is contributed by chart review and patient's who is at bedside as he remains aphasic and only responds to questions with 'okay.' Patient's endorses that she was away from the home at an
art festival when neighbors noted patient appearing to be confused and trying to unsuccessfully get in his car and unable to articulate any meaningful words to neighbors. When patient's neighbors could not get a hold of they called 911. Per
ER documentation states his last known well was 12 PM that day as he was at his baseline self when she left for her art festival. Patient's denies that he has a past medical history of stroke or similar stroke like symptoms; she does note
that he had a right carotid endarterectomy done 'decades' ago at [facility]. She cannot recall the name of the surgeon at [facility]. She does state at the time he was noted to have left carotid stenosis as well but in the range of 60%, and for
some unknown reason they were referred to a surgeon in [facility]. She cannot recall the hospital or surgeon in [facility] they were referred to for left carotid stenosis intervention/surgery. However, she states the day of surgery the
surgeon notified them that insurance would not cover the procedure because the stenosis was not significant enough and he has been under surveillance with routine carotid ultrasound, by she suspects his PCP Dr Paresh Perry. She does note he also
has an aortic abdominal aneurysm, which they recently saw our vascular surgery group Dr. Orville Morales III in the outpatient setting for as he is approaching size for repair. He was instructed to obtain CTA abdomen/pelvis in the outpatient setting
with follow-up scheduled for April and plans for surgical repair. Currently, patient appears comfortable and in no signs of distress.
Past Medical History
Past Medical History: Arrhythmias (Atrial fibrillation), CAD, HTN and Other (penile Basal cell carcinoma, AAA, hyperlipidemia, peripheral neuropathy)
Past Surgical History: Cardiac (CABG x 2 2022 done at [facility]) and Other ( inguinal hernia repair-bilateral, cataract extraction, right carotid endarterectomy (2001))
Social History
Tobacco: Former Smoker
Personal:
Living: With Family
Family History
Family History: Unable to Obtain
Allergies / Home Medications
Allergy/AdvReac Type Severity Reaction Status Date / Time
No Known Allergies Allergy Verified 03/15/24 15:44
�Medication �Instructions �Recorded �Confirmed �Type
alprazolam 0.25 mg tablet 0.25 mg PO TID 12/11/12 03/15/24 History
clopidogrel 75 mg tablet 75 mg PO DAILY 12/11/12 03/15/24 History
ezetimibe 10 mg tablet 10 mg PO HS 12/11/12 03/15/24 History
gemfibrozil 600 mg tablet 600 mg PO BID 12/11/12 03/15/24 History
rosuvastatin 40 mg tablet (Crestor) 40 mg PO BID 12/11/12 03/15/24 History
aspirin 81 mg tablet,delayed 81 mg PO DAILY 07/01/23 03/15/24 History
release
metoprolol tartrate 25 mg tablet 25 mg PO BID 07/01/23 03/15/24 History
nifedipine 90 mg tablet,extended 90 mg PO DAILY 07/01/23 03/15/24 History
release 24 hr
furosemide 20 mg tablet (Lasix) 20 mg PO MOWEFR 03/15/24 03/15/24 History
tobramycin 0.3 %-dexamethasone 0.1 1 drp BOTH EYES TID 03/15/24 03/15/24 History
% eye drops,suspension
Review of Systems
-
Unable to obtain full review of systems at this time due to: Other (Unable to obtain review of systems due to aphasia)
Physical Exam
Vital Signs
Temp Pulse Resp BP Pulse Ox
98.3 F 91 20 121/92 97
03/16/24 07:34 03/16/24 07:34 03/16/24 07:34 03/16/24 07:34 03/16/24 07:34
Lab Results
03/16/24 06:18
03/15/24 20:22
Troponin I < 0.012 ng/ml 03/15/24 16:09
Physical Exam
General: No Apparent Distress and Comfortable
HEENT: Normocephalic, Anicteric and Atraumatic
Respiratory: Non Labored Respirations
Cardiac: Negative JVD
GI: Soft, Non Tender, Non Distended and Other (Rotund)
Musculoskeletal: No Edema
Skin: Warm and Dry
Neuro: Other (Aphasic, intermittently follows commands)
Assessment / Plan
-
Assessment: 83-year-old male with CT angiogram evidence of left ICA stenosis of approximately 66% and focal calcification at the origin of right subclavian artery.
Plan:
MRI pending, if demonstrates left hemispheric stroke will appreciate neurology input regarding symptomatic carotid stenosis.
Surgical plan pending results of MRI
I performed this shared service with the attending. I evaluated the patient [id number] and have entered clinical documentation as shown in the encounter note. I performed the following component(s):�history and physical exam. Note that medical
decision making is not final until attested by vascular attending.
Data Reviewed
-
CT Scan: Report Reviewed by me, Discussed with Patient and Discussed with Family
Ultrasound: Report Reviewed by me, Discussed with Patient and Discussed with Family
Labs: Labs Reviewed by me
[2024-03-16] MEDS: TYLENOL 650 MG PO (09:50)
[2024-03-16] MEDS: PLAVIX 75 MG PO (09:51)
[2024-03-16] MEDS: HEPARIN 5000 UNITS SC ×3 (09:51→22:59)
[2024-03-16] MEDS: CRESTOR 40 MG PO ×2 (09:52→20:10)
[2024-03-16] MEDS: ASPIR LOW (ENTERIC COATED) 81 MG PO (09:52)
[2024-03-16] MEDS: TOBRADEX EYE DROPS 1 DROP BOTH EYES ×3 (09:52→22:58)
[2024-03-16] MEDS: XANAX PO ×2 (09:52→10:16)
[2024-03-16] MEDS: LOPRESSOR 25 MG PO ×2 (09:52→20:09)
[2024-03-16] MEDS: LASIX 20 MG PO (09:54)
[2024-03-16 11:02] LABS: Glycohemoglobin (HgbA1c) 5.4 % (4.0-5.6)
--- NOTE | 2024-03-16 12:28 | PTOTSP ---
Speech Therapy Evaluation Note
Limited assessment of oropharyngeal swallow function due to pt declining regular solids at bedside. Pt with no overt s/sx of aspiration with thin liquids via single straw sip and consecutive straw sip. Pt with expressive/receptive language deficits.
Unable to follow simple commands and limited verbal output.
Recommend:
1. IDDSI Level 7 (regular) solids and thin liquids
2. Medications as tolerated
3. General aspiration precautions
4. Follow-up with ST to assess tolerance of regular solids and to complete speech/language evaluation.
--- NOTE | 2024-03-16 12:41 | CM ---
Patient seen bedside with spouse.
Patient sleeping.
Spouse assisted with IA.
Patient lives with spouse in a 2 story home with multiple entrances. Primary entrance is in the back- with no steps to enter.
patient independent prior to admission without assistive devices.
Patient drives.
Opt therapy at [facility] in the past.
No hx skilled rehab.
PT/OT recommending acute rehab.
Spouse interested in [facility].
Referral placed, Spoke with Liaison.
MRI pending.
PCP: Dr. Dr Perry
Pharmacy: [facility]
Plan: acute rehab once medically stable and bed available.
--- NOTE | 2024-03-16 13:56 | W.PN.HOSP.TC ---
Today's Communication/Plan
-
Follow-up MRI
Continue with DAPT and statin
Consider left CEA
Assessment / Plan
Assessment / Plan
#Acute aphasia
#Presumed acute CVA
-Suspicion high for acute CVA, presented with aphasia that is slightly better though still present today
-CT head on arrival was unremarkable; CTA with signs of proximal left ICA stenosis of 66%
-Was determined to not be candidate for tPA due to his age and symptom timing
-Difficult to obtain NIHSS today, would not follow direction and say 'I can do it' though suspect fairly high
-Home meds include DAPT and statin from previous carotid stent, history of CABG
-Neurology and vascular surgery following
Plan
-Follow-up MRI brain without contrast
-Continue DAPT and high intensity statin
-Continue with permissive hypertension for now (holding nifedipine, SBP goal > 150)
-Continue with NIHSS and neurochecks every 4 hours
-Plan for CEA if MRI shows anterior left stroke
-Continue on telemetry for now
#CAD s/p CABG
-Home medications include DAPT with Plavix and aspirin, beta-jagdeep, high intensity statin
-Last echocardiogram showed preservation of systolic function
-No signs of ACS on this hospitalization
#S/P right ICA stent
-Medications include DAPT and statin
-CTA in the ED showed signs of left ICA stenosis
#Hypertension
-No known history of hypertensive systemic disease
-Home medications include nifedipine, metoprolol tartrate; also on Lasix
# Hyperlipidemia
-Does have significant ASCVD history with CAD and CABG, right ICA stent
-Home medications include high intensity statin, gemfibrozil, ezetimibe
-Holding gemfibrozil currently due to increased risks of rhabdomyolysis with other meds
#H/O atrial fibrillation
-Transient event that occurred following his coronary artery bypass graft
-He is not on any longstanding anticoagulant such as warfarin or DOAC
DVT prophylaxis: Subcutaneous heparin
Diet: Low-cholesterol
CODE STATUS: Full code
Anticipated Discharge: > 48 hours
Subjective/Interval History
-
Date of Service: March 16, 2024
Seen and examined at the bedside with his . No acute events overnight. AFVSS this morning.
MRI is pending, hopeful that this test occurs today though there is a chance it may not be performed until tomorrow.
ROS is limited by his expressive aphasia
Objective Data
-
Labs:
Laboratory Results
03/16/24
06:18
WBC 9.9
Hgb 14.4
Hct 40.0
Plt Count 171
Vital Signs:
Vital Signs
Temp Pulse Resp BP Pulse Ox
98.1 F 77 20 150/73 97
03/16/24 11:12 03/16/24 11:12 03/16/24 11:12 03/16/24 11:12 03/16/24 11:12
I&O
03/15/24 03/16/24 03/17/24
06:59 06:59 06:59
Output Total 100 / 100
Balance -100 / -100
Review of Systems
-
Unable to obtain full review of systems at this time due to: Other (Expressive aphasia)
Physical Exam
-
General: Well Nourished, No Apparent Distress and Comfortable
HEENT: Normocephalic, Atraumatic and Moist Mucous Membranes
Respiratory: Clear to Auscultation and Non Labored Respirations
Cardiac: Regular Rhythm and S1/S2; Negative Murmur, Rub or Gallop
GI: Soft, Nontender, Nondistended and Normal Bowel Sounds
Musculoskeletal: No Clubbing and No Edema
Skin: Warm and Dry; Negative Rash
Neuro: AO x 3, No Motor Deficits, No Sensory Deficits and Other (Expressive aphasia; difficult to obtain full neurological exam); Negative Facial Droop
Psych: Calm
Data Reviewed
-
MRI: Discussed with Patient and Discussed with Family
Labs: Labs Reviewed by me, Discussed with Patient and Discussed with Family
--- NOTE | 2024-03-16 14:17 | W.PN.NEURO.1 ---
Documented by User: Dalila Rao NP 03/16/24 14:39
Today's Communication / Plan
-
.
Neuro Assessment/Plan
Assessment
This is an 83-year-old RH male who presented to on 03/15/24 with report of acute onset aphasia.
-CT Head 03/15/24: No evidence of acute intracranial abnormality. ASPECTS score: 10.
-CTA head/neck 03/15/24: Status post right carotid endarterectomy with no evidence for significant stenosis. Atherosclerotic disease of the left carotid bulb and proximal left ICA, measured diameter reduction of 66%. On previous cerebrovascular
ultrasound, velocity measurements compatible with greater than 70% diameter reduction. No evidence for large vessel occlusion in the intracranial circulation. Dominant left vertebral artery with smaller caliber right vertebral artery. No evidence
for significant stenosis or dissection. Focal calcification at the origin of the right subclavian artery, and could possibly represent a hemodynamically significant stenosis.
I. Acute aphasia likely due to a L MCA ischemic infarct. After thorough consideration of risk vs benefits the decision was made not to administer IV thrombosis given patients age and timing of symptoms/and arrival onset.
II. Hypertensive emergency.
III. History of R CEA, L ICA 66% stenosis per CTA head/neck imaging.
IV. PA A-Fib following CABG, resolved spontaneously. Not on OAC, never had outpatient cardiac monitoring per patient's .
Plan
-Continue home DAPT with aspirin 81mg and Plavix 75mg daily.
-Cautious lowering of BP by approximately 15 % during the first 24 hours is SBP >220 mmHg or diastolic blood pressure >120 mmHg; then goal normotension.
-MRI brain noncontrast pending.
-Continue Telemetry monitoring.
-Aspiration precautions.
-LDL goal <70. LDL is 71. Continue home Crestor 40 mg and Zetia 10mg QHS.
-Goal normoglycemia, hbA1c is 5.4.
-NIHSS and neurological checks per unit guidelines.
-Provide patient with a stroke education packet.
-PT/OT/ST evaluations.
-DVT prophylaxis.
Subjective/Objective
Subjective Data
Date of Service: March 16, 2024
No acute events overnight. Patient with ongoing aphasia. ARIADNA a complete review of systems due to aphasia.
Objective Data
Vital Signs
Temp Pulse Resp BP Pulse Ox
98.1 F 77 20 150/73 97
03/16/24 11:12 03/16/24 11:12 03/16/24 11:12 03/16/24 11:12 03/16/24 11:12
Lab Results
03/16/24 06:18
03/15/24 20:22
PT 13.1 Sec (11.4-14.6) 03/15/24 16:09
INR 1.01 03/15/24 16:09
APTT 31.7 Sec (23.4-35.0) 03/15/24 16:09
Sodium Cancelled 03/15/24 20:22
Potassium Cancelled 03/15/24 20:22
BUN Cancelled 03/15/24 20:22
Glucose Cancelled 03/15/24 20:22
Calcium Cancelled 03/15/24 20:22
LDL Cholesterol, Calc 71 mg/dl 03/16/24 06:18
Patient Allergies
No Known Allergies Allergy (Verified 03/15/24 15:44)
LDL Level: <70, continue statin
Review of Systems
-
Unable to obtain full review of systems at this time due to: Aphasia
EENT: Decreased Vision
Physical Exam
-
General: No Apparent Distress
Eyes: No Ptosis and PERRLA
HEENT: Normocephalic and Atraumatic
Neck: Full Range of Motion
Respiratory: No Dyspnea
GI: Non-distended
Extremities: No Clubbing, No Cyanosis and No Edema
Extended Neurological Exam
Mood & Affect: Mood Unremarkable and Affect Unremarkable
Attention Span & Concentration: Awake, Alert and Interactive
Memory: Unable to Assess (ARIADNA due to global aphasia)
Tremor: Hand Tremor Absent and Head Tremor Absent
Involuntary Movement: None
Speech: Expressive Aphasia, Receptive Aphasia and Severely Reduced Output
Cranial Nerve II: Left Eye: Pupillary Reactivity Unremarkable, Pupillary Size Unremarkable and Unable to Assess Visual Sherwood
Cranial Nerve II: Right Eye: Pupillary Reactivity Unremarkable, Pupillary Size Unremarkable and Unable to Assess Visual Sherwood
Cranial Nerves III, IV, : Extraocular Movement: Extraocular Movement Full in all Directions
Cranial Nerve V: Facial Sensation: Intact to Light Touch
Cranial Nerve VII: Facial Symmetry: Normal Facial Symmetry
Cranial Nerve VIII: Hearing: Unremarkable Hearing to Normal Conversational Volume
Cranial Nerves IX, X: Palate Movement: Palate Elevation Symmetric
Cranial Nerve XI: Shoulder Shrug: Unremarkable
Cranial Nerve XII: Tongue Protusion: Midline
Muscle Strength, Overall: Full Throughout
Muscle Bulk & Tone: Bulk Unremarkable and Tone Unremarkable
Pronator Drift: No Drift in Upper Extremities and No Drift in Lower Extremities
Touch Sensation: Unable to Assess
Coordination: Unable to Assess
Babinski Sign: Absent Bilaterally
Modified Ada Score (MRS)
-
Modified [place] Scale (mRS): Moderate disability. Requires some help, able to walk unassisted.
Score: 3
Data Reviewed
-
CT-A: Report Reviewed and Image Reviewed
CT Head: Report Reviewed and Image Reviewed
MRI Head: Pending
Labs: Report Reviewed
Lipid Profile: Report Reviewed
HgbA1C: Report Reviewed
Reviewed with: Physician, Patient and Family
Medications
-
Active Medications
Generic Name Dose Route Start Last Admin
Trade Name Freq PRN Reason Stop Dose Admin
Acetaminophen 650 mg 03/15/24 18:17
Acetaminophen 650 Mg Rectal Suppository RECTAL 04/12/24 18:16
Q4HPRN PRN
BOYD, mild pain, or temp >100.4F
Acetaminophen 650 mg 03/15/24 18:17 03/16/24 09:50
Acetaminophen 325 Mg Tablet PO 04/12/24 18:16 650 mg
Q4HPRN PRN Administration
BOYD, mild pain, or temp >100.4F
Alprazolam 0.25 mg 03/15/24 22:00 03/16/24 10:16
Alprazolam 0.25 Mg Tablet PO 04/12/24 21:59 Not Given
TID SURJIT
Aspirin 81 mg 03/16/24 08:00 03/16/24 09:52
Aspirin 81 Mg (Enteric Coated) Tablet PO 04/13/24 07:59 81 mg
DAILY SURJIT Administration
Clopidogrel Bisulfate 75 mg 03/16/24 08:00 03/16/24 09:51
Clopidogrel 75 Mg Tablet PO 04/13/24 07:59 75 mg
DAILY SURJIT Administration
Ezetimibe 10 mg 03/15/24 22:00 03/15/24 22:12
Ezetimibe (Zetia) 10 Mg Tablet PO 04/12/24 21:59 10 mg
HS SURJIT Administration
Furosemide 20 mg 03/16/24 08:00 03/16/24 09:54
Furosemide 20 Mg Tablet PO 04/13/24 07:59 20 mg
MoWeFr@0800 SURJIT Administration
Heparin Sodium 5,000 units 03/16/24 00:00 03/16/24 09:51
Heparin 5,000 Units/Ml 1 Ml Vial SC 04/13/24 00:00 5,000 units
Q8 SURJIT Administration
Hydralazine HCl 5 mg 03/15/24 18:17 03/15/24 23:25
Hydralazine 20 Mg/Ml Vial IV 04/12/24 18:16 5 mg
Q4HPRN PRN Administration
SBP >220 mmHg or DBP >120
Metoprolol Tartrate 25 mg 03/15/24 20:00 03/16/24 09:52
Metoprolol 25 Mg Regular Release Tablet PO 04/12/24 19:59 25 mg
BID SURJIT Administration
Rosuvastatin Calcium 40 mg 03/15/24 20:00 03/16/24 09:52
Rosuvastatin (Crestor) 40 Mg Tablet PO 04/12/24 19:59 40 mg
BID SURJIT Administration
Sodium Chloride 0 flush 03/15/24 19:00
Sodium Chloride 0.9% (Flush) Syringe IV 04/12/24 18:59
PER PROTOCOL SURJIT
Tobramycin/Dexamethasone 1 drop 03/15/24 22:00 03/16/24 09:52
Tobramycin Sulfate/Dexameth 2.5 Ml Opthalmic Suspension BOTH EYES 03/22/24 21:59 1 drop
TID SURJIT Administration
Home Medications
�Medication �Instructions �Recorded
alprazolam 0.25 mg tablet 0.25 mg PO TID 12/11/12
clopidogrel 75 mg tablet 75 mg PO DAILY 12/11/12
ezetimibe 10 mg tablet 10 mg PO HS 12/11/12
gemfibrozil 600 mg tablet 600 mg PO BID 12/11/12
rosuvastatin 40 mg tablet (Crestor) 40 mg PO BID 12/11/12
aspirin 81 mg tablet,delayed 81 mg PO DAILY 07/01/23
release
metoprolol tartrate 25 mg tablet 25 mg PO BID 07/01/23
nifedipine 90 mg tablet,extended 90 mg PO DAILY 07/01/23
release 24 hr
furosemide 20 mg tablet (Lasix) 20 mg PO MOWEFR 03/15/24
tobramycin 0.3 %-dexamethasone 0.1 1 drp BOTH EYES TID 03/15/24
% eye drops,suspension
NIH Stroke Score
Subsequent NIH Scale
Date of Subsequent NIH Scale: 03/16/24
Time of Subsequent NIH Scale: 10:30
NIH Stroke Score
Level of Consciousness: 0 - Alert
LOC Questions: 2-Neither correct
LOC Commands: 2-Performs neither correctly
Best Horizontal Gaze: 0-Normal
Visual Sherwood: 0=Normal, no visual loss
Facial Palsy: 0=Normal, symmetrical
Motor - Right Arm: 0=No drift 10 seconds
Motor - Left Arm: 0=No drift 10 seconds
Motor - Right Le-No drift 5 seconds
Motor - Left Le-No drift 5 seconds
Limb Ataxia: 0-Absent
Sensation: 0-Normal
Best Language: 3-Mute/global aphasia
Dysarthria: 0-Normal
Extinction and Inattention: 0-No abnormality
Total Score:: 7
Modified [place] (mRS) Score
Modified [place] Scale (mRS): Moderate disability. Requires some help, able to walk unassisted.
Score: 3

Documented by User: Darell Rubio MD 03/16/24 22:27
Today's Communication / Plan
-
83-year-old RH male who was admitted on 03/15/24 with acute aphasia. secondary to Left MCA ischemic infarct..
PLAN: DAPT
BP control
Zetia
Speech therapy
Will need custodial placement
Modified Ada Score (MRS)
-
Score: 3
NIH Stroke Score
NIH Stroke Score
Total Score:: 7
Modified Ada (mRS) Score
Score: 3
[2024-03-16] MEDS: XANAX 0.25 MG PO ×2 (15:43→22:57)
[2024-03-16 17:59] LABS: Urine Albumin Trace (Neg - Trace); Urine Bilirubin Negative (Negative); Urine Character Clear (Clear); Urine Color Yellow; Urine Glucose Negative (Negative); Urine Ketone Trace (Negative); Urine Leukocyte Negative (Negative); Urine Nitrite Negative (Negative); Urine Occult Blood Negative (Negative); Urine Urobilinogen Negative (Neg - 1+)
[2024-03-16] MEDS: ZETIA 10 MG PO (22:57)
[2024-03-17] VITALS (7 sets, daily range): BP systolic 126–173; BP diastolic 68–89; PULSE 98; O2SAT 96
[2024-03-17 07:06] LABS: Blood Urea Nitrogen 15 mg/dl (9-20); Calcium 8.7 mg/dl (8.4-10.2); Carbon Dioxide 27 mmol/L (22-30); Chloride 102 mmol/L (98-107); Estimated Creatinine Clearance 62 ml/min; Glucose 92 mg/dl (70-99); Potassium 4.1 mmol/L (3.5-5.1); Sodium 142 mmol/L (135-145); eGFR > 60.00
[2024-03-17 07:20] LABS: % Basophils 0.4 % (0-2); % Eosinophils 1.3 % (0-6); % Immature Granulocytes 0.4 % (0-0.5); % Lymphocytes 11.7 % (20.5-51.1); % Monocytes 10.1 % (1.7-9.3); % Neutrophils 76.1 % (42.2-75.2); Absolute Eosinophils 0.1 10^3/uL (0-0.7); Absolute Lymphocytes 0.9 10^3/uL (1.2-3.4); Absolute Monocytes 0.8 10^3/uL (0.1-0.6); Absolute Neutrophils 5.8 10^3/uL (1.4-6.5); Hematocrit 43.6 % (39.0-52.0); Hemoglobin 15.1 g/dL (13.0-18.0); Mean Corp Hgb Conc. 34.6 g/dL (33.0-37.0); Mean Corpuscular Hgb 30.4 pg (27.0-31.0); Mean Corpuscular Volume 87.7 fL (80.0-94.0); Mean Platelet Volume 10.2 fL (7.4-10.4); Nucleated Red Blood Cells % 0 % (-); Platelet Count 156 10^3/uL (130-400); Red Blood Cell Count 4.97 10^6/uL (4.70-6.10); Red Cell Dist. Width 13.6 % (11.5-14.5); White Blood Cell Count 7.6 10^3/uL (4.8-10.8)
[2024-03-17] MEDS: XANAX PO ×3 (08:55→23:10)
--- NOTE | 2024-03-17 09:00 | W.PN.UPDATE ---
Update Note
Progress Note Update
Patient seen at bedside this a.m. with Dr. Morales. MRI reviewed, no acute stroke noted. CTA reviewed by Dr. Morales. Discussed these findings with the patient and family.
Plan:
-Carotid ultrasound for comparison
-CTA abdomen/pelvis for known AAA
-Will discuss with neurology and hospitalist to formulate surgical plan
[2024-03-17] MEDS: PLAVIX 75 MG PO (09:01)
[2024-03-17] MEDS: TOBRADEX EYE DROPS 1 DROP BOTH EYES ×3 (09:01→23:07)
[2024-03-17] MEDS: CRESTOR 40 MG PO ×2 (09:01→20:06)
[2024-03-17] MEDS: PROCARDIA XL (EXTENDED RELEASE) 90 MG PO (09:01)
[2024-03-17] MEDS: ASPIR LOW (ENTERIC COATED) 81 MG PO (09:01)
[2024-03-17] MEDS: LOPRESSOR 25 MG PO ×2 (09:02→20:06)
[2024-03-17] MEDS: HEPARIN 5000 UNITS SC ×3 (09:03→23:07)
--- NOTE | 2024-03-17 10:21 | W.PN.UPDATE ---
Update Note
Progress Note Update
This patient was seen and examined with ISAIAH Mcadams. I agree with the history and physical exam as well as the assessment and plan. I have the following additions:
Known to me from prior visit in October 2023
Remote prior right carotid endarterectomy performed at an outside hospital
Known abdominal aortic aneurysm
Known asymptomatic left-sided carotid stenosis that was being followed with surveillance in the office
Presented with acute onset aphasia over the weekend which has improved
[id number]
MRI demonstrates no acute infarct. Chronic right-sided lacunar infarct and chronic posterior left parietal lobe infarct
at bedside and reports significant improvement in symptoms compared to admission
I personally reviewed the CT angiogram images and performed centerline reconstructions. On the left he has plaque in the very proximal left internal carotid artery focally that is contributing to a significant stenosis (see below).
Results of TTE reviewed.
Will discuss with neurology regarding their assessment of the left carotid stenosis. May plan for carotid intervention on this admission. Briefly discussed either TCAR or CEA. Continue dual therapy. Obtain updated carotid duplex in the vascular
lab today
He also has a known abdominal aortic aneurysm which is nearing size criteria for repair. Will obtain CT angiogram of the abdomen and pelvis on this admission for updated diameter measurement and possible surgical planning based on results of the
scan.
We will follow with you
Signed:
Orville Morales III, MD
[facility]
[phone] (riaw)
--- NOTE | 2024-03-17 10:54 | W.PN.NEURO.1 ---
Documented by User: Dalila Rao NP 03/17/24 11:25
Today's Communication / Plan
-
.
Neuro Assessment/Plan
Assessment
This is an 83-year-old RH male who presented to on 03/15/24 with report of acute onset aphasia.
-CT Head 03/15/24: No evidence of acute intracranial abnormality. ASPECTS score: 10.
-CTA head/neck 03/15/24: Status post right carotid endarterectomy with no evidence for significant stenosis. Atherosclerotic disease of the left carotid bulb and proximal left ICA, measured diameter reduction of 66%. On previous cerebrovascular
ultrasound, velocity measurements compatible with greater than 70% diameter reduction. No evidence for large vessel occlusion in the intracranial circulation. Dominant left vertebral artery with smaller caliber right vertebral artery. No evidence
for significant stenosis or dissection. Focal calcification at the origin of the right subclavian artery, and could possibly represent a hemodynamically significant stenosis.
-MRI brain 03/16/24: No MRI evidence for acute infarct or intracranial hemorrhage. 4.5 mm chronic lacunar infarct in the body of the right caudate nucleus. 3.8 mm chronic white matter infarct in the posterior left parietal lobe. Moderate
periventricular white matter leukoaraiosis. Mild to moderate diffuse cerebral and cerebellar volume loss.
I. Transient global aphasia; unclear etiology. MRI brain negative for acute stroke. TIA possible given L ICA stenosis and history of paroxysmal Afib (not on OAC), although duration of symptoms is slightly long for this. Partial seizure also possible.
II. Hypertensive emergency.
III. History of R CEA, L ICA 66% stenosis per CTA head/neck imaging.
IV. PA A-Fib following CABG, resolved spontaneously. Not on OAC, never had outpatient cardiac monitoring per patient's .
V. 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
Plan
-Continue home DAPT with aspirin 81mg and Plavix 75mg daily.
-Routine EEG pending.
-Cautious lowering of BP by approximately 15 % during the first 24 hours is SBP >220 mmHg or diastolic blood pressure >120 mmHg; then goal normotension.
-Vascular surgery following. Neurology recommends L ICA intervention for stroke prevention given this may have been a TIA.
-Continue Telemetry monitoring. Consider outpatient cardiac monitoring.
-Aspiration precautions.
-LDL goal <70. LDL is 71. Continue home Crestor 40 mg and Zetia 10mg QHS.
-Goal normoglycemia, hbA1c is 5.4.
-NIHSS and neurological checks per unit guidelines.
-Provide patient with a stroke education packet.
-PT/OT/ST evaluations.
-DVT prophylaxis.
Subjective/Objective
Subjective Data
Date of Service: March 17, 2024
Patient's aphasia improved significantly yesterday late afternoon/evening. Patient denies any headache, dizziness, vision changes, swallowing difficulty, numbness, weakness, chest pain, palpitations, and shortness of breath.
Objective Data
Vital Signs
Temp Pulse Resp BP Pulse Ox
98.6 F 65 17 173/82 98
03/17/24 07:30 03/17/24 07:30 03/17/24 07:30 03/17/24 07:30 03/17/24 07:30
Lab Results
03/17/24 05:32
03/17/24 05:32
PT 13.1 Sec (11.4-14.6) 03/15/24 16:09
INR 1.01 03/15/24 16:09
APTT 31.7 Sec (23.4-35.0) 03/15/24 16:09
Sodium 142 mmol/L (135-145) 03/17/24 05:32
Potassium 4.1 mmol/L (3.5-5.1) 03/17/24 05:32
BUN 15 mg/dl (9-20) 03/17/24 05:32
Glucose 92 mg/dl (70-99) 03/17/24 05:32
Calcium 8.7 mg/dl (8.4-10.2) 03/17/24 05:32
LDL Cholesterol, Calc 71 mg/dl 03/16/24 06:18
Patient Allergies
No Known Allergies Allergy (Verified 03/15/24 15:44)
LDL Level: <70, continue statin
Review of Systems
-
History Source: Patient
EENT: Negative Blurry Vision, Decreased Vision or Swallowing Difficulty
Respiratory: Negative Cough or Trouble Breathing
Cardiac: Negative Chest Pain or Palpitations
Abdomen/GI: Negative Nausea
Neuro: Negative Dizzy, Headache, Weakness, Numbness, Ataxia, Tremors or Speech Problem
Physical Exam
-
General: No Apparent Distress
Eyes: No Ptosis and PERRLA
HEENT: Normocephalic and Atraumatic
Neck: Full Range of Motion
Respiratory: No Dyspnea
GI: Non-distended
Extremities: No Clubbing, No Cyanosis and No Edema
Psych: Unremarkable
Extended Neurological Exam
Mood & Affect: Mood Unremarkable and Affect Unremarkable
Attention Span & Concentration: Awake, Alert, Interactive and Other (Follows commands briskly today)
Memory: Reduced (Oriented to person, month, place, not year)
Tremor: Hand Tremor Absent and Head Tremor Absent
Involuntary Movement: None
Speech: Quality Unremarkable and Mildly Reduced Output; Negative Receptive Aphasia
Cranial Nerve II: Left Eye: Pupillary Reactivity Unremarkable, Pupillary Size Unremarkable and Visual Sherwood Intact
Cranial Nerve II: Right Eye: Pupillary Reactivity Unremarkable, Pupillary Size Unremarkable and Visual Sherwood Intact
Cranial Nerves III, IV, : Extraocular Movement: Extraocular Movement Full in all Directions
Cranial Nerve V: Facial Sensation: Intact to Light Touch
Cranial Nerve VII: Facial Symmetry: Normal Facial Symmetry
Cranial Nerve VIII: Hearing: Unremarkable Hearing to Normal Conversational Volume
Cranial Nerves IX, X: Palate Movement: Palate Elevation Symmetric
Cranial Nerve XI: Shoulder Shrug: Unremarkable
Cranial Nerve XII: Tongue Protusion: Midline
Muscle Strength, Overall: Full Throughout
Muscle Bulk & Tone: Bulk Unremarkable and Tone Unremarkable
Pronator Drift: No Drift in Upper Extremities and No Drift in Lower Extremities
Touch Sensation: Double Simultaneous Stimulation Unremarkable
Coordination: [id number] Testing Unremarkable
Babinski Sign: Absent Bilaterally
Modified [place] Score (MRS)
-
Modified Ada Scale (mRS): No significant disability. Able to carry out usual activities.
Score: 1
Data Reviewed
-
CT-A: Report Reviewed and Image Reviewed
CT Head: Report Reviewed and Image Reviewed
MRI Head: Report Reviewed and Image Reviewed
Echocardiogram: Report Reviewed
EEG: Pending
Labs: Report Reviewed
Lipid Profile: Report Reviewed
HgbA1C: Report Reviewed
Reviewed with: Physician, Patient and Family
Medications
-
Active Medications
Generic Name Dose Route Start Last Admin
Trade Name Freq PRN Reason Stop Dose Admin
Acetaminophen 650 mg 03/15/24 18:17
Acetaminophen 650 Mg Rectal Suppository RECTAL 04/12/24 18:16
Q4HPRN PRN
BOYD, mild pain, or temp >100.4F
Acetaminophen 650 mg 03/15/24 18:17 03/16/24 09:50
Acetaminophen 325 Mg Tablet PO 04/12/24 18:16 650 mg
Q4HPRN PRN Administration
BOYD, mild pain, or temp >100.4F
Alprazolam 0.25 mg 03/15/24 22:00 03/17/24 08:55
Alprazolam 0.25 Mg Tablet PO 04/12/24 21:59 Not Given
TID SURJIT
Aspirin 81 mg 03/16/24 08:00 03/17/24 09:01
Aspirin 81 Mg (Enteric Coated) Tablet PO 04/13/24 07:59 81 mg
DAILY SURJIT Administration
Clopidogrel Bisulfate 75 mg 03/16/24 08:00 03/17/24 09:01
Clopidogrel 75 Mg Tablet PO 04/13/24 07:59 75 mg
DAILY SURJIT Administration
Ezetimibe 10 mg 03/15/24 22:00 03/16/24 22:57
Ezetimibe (Zetia) 10 Mg Tablet PO 04/12/24 21:59 10 mg
HS SURJIT Administration
Furosemide 20 mg 03/16/24 08:00 03/16/24 09:54
Furosemide 20 Mg Tablet PO 04/13/24 07:59 20 mg
MoWeFr@0800 SURJIT Administration
Heparin Sodium 5,000 units 03/16/24 00:00 03/17/24 09:03
Heparin 5,000 Units/Ml 1 Ml Vial SC 04/13/24 00:00 5,000 units
Q8 SURJIT Administration
Hydralazine HCl 5 mg 03/15/24 18:17 03/15/24 23:25
Hydralazine 20 Mg/Ml Vial IV 04/12/24 18:16 5 mg
Q4HPRN PRN Administration
SBP >220 mmHg or DBP >120
Metoprolol Tartrate 25 mg 03/15/24 20:00 03/17/24 09:02
Metoprolol 25 Mg Regular Release Tablet PO 04/12/24 19:59 25 mg
BID SURJIT Administration
Nifedipine 90 mg 03/17/24 08:00 03/17/24 09:01
Nifedipine 30 Mg Extended Release Tablet PO 04/14/24 07:59 90 mg
DAILY SURJIT Administration
Rosuvastatin Calcium 40 mg 03/15/24 20:00 03/17/24 09:01
Rosuvastatin (Crestor) 40 Mg Tablet PO 04/12/24 19:59 40 mg
BID SURJIT Administration
Sodium Chloride 0 flush 03/15/24 19:00
Sodium Chloride 0.9% (Flush) Syringe IV 04/12/24 18:59
PER PROTOCOL SURJIT
Tobramycin/Dexamethasone 1 drop 03/15/24 22:00 03/17/24 09:01
Tobramycin Sulfate/Dexameth 2.5 Ml Opthalmic Suspension BOTH EYES 03/22/24 21:59 1 drop
TID SURJIT Administration
Home Medications
�Medication �Instructions �Recorded
alprazolam 0.25 mg tablet 0.25 mg PO TID 12/11/12
clopidogrel 75 mg tablet 75 mg PO DAILY 12/11/12
ezetimibe 10 mg tablet 10 mg PO HS 12/11/12
gemfibrozil 600 mg tablet 600 mg PO BID 12/11/12
rosuvastatin 40 mg tablet (Crestor) 40 mg PO BID 12/11/12
aspirin 81 mg tablet,delayed 81 mg PO DAILY 07/01/23
release
metoprolol tartrate 25 mg tablet 25 mg PO BID 07/01/23
nifedipine 90 mg tablet,extended 90 mg PO DAILY 07/01/23
release 24 hr
furosemide 20 mg tablet (Lasix) 20 mg PO MOWEFR 03/15/24
tobramycin 0.3 %-dexamethasone 0.1 1 drp BOTH EYES TID 03/15/24
% eye drops,suspension
NIH Stroke Score
Subsequent NIH Scale
Date of Subsequent NIH Scale: 03/17/24
Time of Subsequent NIH Scale: 10:00
NIH Stroke Score
Level of Consciousness: 0 - Alert
LOC Questions: 0-Answers both correctly
LOC Commands: 0-Performs both correctly
Best Horizontal Gaze: 0-Normal
Visual Sherwood: 0=Normal, no visual loss
Facial Palsy: 0=Normal, symmetrical
Motor - Right Arm: 0=No drift 10 seconds
Motor - Left Arm: 0=No drift 10 seconds
Motor - Right Le-No drift 5 seconds
Motor - Left Le-No drift 5 seconds
Limb Ataxia: 0-Absent
Sensation: 0-Normal
Best Language: 1-Mild aphasia
Dysarthria: 0-Normal
Extinction and Inattention: 0-No abnormality
Total Score:: 1

Documented by User: Darell Rubio MD 03/17/24 22:29
Today's Communication / Plan
-
83 yr. old male with h/o uncontrolled HTN, carotid artery disease who was admitted with aphasia that has resolved with BP management.
PLAN: Continue DAPT
Consider CEA(L)
Speech therapy
Zetia
Modified [place] Score (MRS)
-
Score: 1
NIH Stroke Score
NIH Stroke Score
Total Score:: 1
--- NOTE | 2024-03-17 11:16 | W.PN.HOSP.TC ---
Today's Communication/Plan
-
Follow-up EEG
Continue DAPT and statin
Plan for CEA versus left carotid stent here
Assessment / Plan
Assessment / Plan
#Acute aphasia
-Differential diagnoses include partial complex seizure versus prolonged TIA
-Was determined to not be a candidate for tPA due to questionable timing of symptoms
-CTH negative; CTA with signs of proximal left ICA stenosis of 66%; MRI yesterday negative
-Home meds include DAPT and statin from previous carotid stent, history of CABG
-Neurology and vascular surgery following, EEG pending
-NIHSS 0 today, able to form regular speech
Plan
-Follow-up EEG, consider antiepileptics
-Continue DAPT and high intensity statin
-Continue with neurochecks every 4 hours
#Left ICA stenosis
-CTA on arrival showed left ICA stenosis of near 66%
-Initial concern for CVA within this distribution though MRI negative
-Medications include DAPT and high intensity statin
-Vascular surgery planning for stent versus CEA of left ICA while here
-Carotid US and other surgical workup ordered by vascular team
#S/P right CEA
-Medications include DAPT and statin
-CTA in the ED showed signs of left ICA stenosis
#CAD s/p CABG
-Home medications include DAPT with Plavix and aspirin, beta-jagdeep, high intensity statin
-Last echocardiogram showed preservation of systolic function
-No signs of ACS on this hospitalization
#Hypertension
-No known history of hypertensive systemic disease
-Home medications include nifedipine, metoprolol tartrate; also on Lasix
# Hyperlipidemia
-Does have significant ASCVD history with CAD and CABG, right ICA stent
-Home medications include high intensity statin, gemfibrozil, ezetimibe
-Holding gemfibrozil currently due to increased risks of rhabdomyolysis with other meds
#H/O atrial fibrillation
-Transient event that occurred following his coronary artery bypass graft
-He is not on any longstanding anticoagulant such as warfarin or DOAC
DVT prophylaxis: Subcutaneous heparin
Diet: Low-cholesterol
CODE STATUS: Full code
Anticipated Discharge: > 48 hours
Subjective/Interval History
-
Date of Service: March 17, 2024
Seen and examined at bedside. No acute events reported overnight. AFVSS this morning.
His MRI yesterday was negative for findings of acute infarct. Overnight his speech and deficits rapidly improved, was able to form complete sentences and follow direction
Denies acute complaints today
Objective Data
-
Labs:
Laboratory Results
03/17/24
05:32
WBC 7.6
Hgb 15.1
Hct 43.6
Plt Count 156
Sodium 142
Potassium 4.1
Chloride 102
Carbon Dioxide 27
BUN 15
Creatinine 0.9
Glucose 92
Calcium 8.7
Vital Signs:
Vital Signs
Temp Pulse Resp BP Pulse Ox
98.6 F 65 17 173/82 98
03/17/24 07:30 03/17/24 07:30 03/17/24 07:30 03/17/24 07:30 03/17/24 07:30
I&O
03/16/24 03/17/24 03/18/24
06:59 06:59 06:59
Intake Total 1080 / 1080
Output Total 100 / 100 1880 / 1880
Balance -100 / -100 -800 / -800
Review of Systems
-
History Source: Patient
All other systems: Reviewed and negative
Physical Exam
-
General: Well Nourished, No Apparent Distress and Comfortable
HEENT: Normocephalic, Atraumatic and Moist Mucous Membranes
Respiratory: Clear to Auscultation and Non Labored Respirations; Negative Wheezes, Rales or Rhonchi
Cardiac: Regular Rhythm, S1/S2 and Other (No carotid bruit); Negative Murmur, Rub or Gallop
GI: Soft, Nontender, Nondistended and Normal Bowel Sounds
Musculoskeletal: No Clubbing, No Cyanosis and No Edema
Skin: Warm and Dry; Negative Rash
Neuro: AO x 3, Nonfocal/Grossly Intact and Central Nerve's Intact
Psych: Calm
Data Reviewed
-
MRI: Report Reviewed by me, Discussed with Physician, Discussed with Patient and Discussed with Family
Labs: Labs Reviewed by me and Discussed with Family
--- NOTE | 2024-03-17 13:11 | EEG.RPT ---
Electroencephalogram Report
Recording
Date of EE03/17/24
Type of EEG: Routine
Length of EEG recordin minutes
Done with Video Recording: Yes
Patient Status: Inpatient
Recording Conditions: Awake and Drowsy
Hyperventilation Performed: No
Photic Stimulation Performed: Yes
Report
LESS THAN 1 HOUR EEG REPORT
LESS THAN 1 HOUR EEG INTERPRETATION:
Likely minimally abnormal EEG for age in drowsiness due to diffuse generalized slowing and single right frontal sharp wave.
CLINICAL CORRELATION:
Although normative values have not been established for a person of this advanced age, this study was minimally suggestive of bihemispheric cortical dysfunction.
If clinical suspicion for seizure persists, a prolonged recording may be warranted.
Clinical correlation is advised.
METHODS:
A 21 channel digitized electroencephalogram (EEG) was performed in the [facility]. The 10/20 international system of electrode placement was used with ECG and lateral/vertical eye movements recorded. The [employer] quantitative
system was utilized.
ELECTROENCEPHALOGRAPHER IMPRESSION(S):
Quality of study
Fair
Background
Anterior-posterior voltage gradient: fair
Maximal frequency: low amplitude theta
No significant asymmetries of background activity noted
Sleep
Drowsiness present
Hyperventilation
Not performed
Photic Stimulation
Failed to activate the record
ECG
Unremarkable
Abnormal findings
Single right frontal sharp wave seen (F8) seen
--- NOTE | 2024-03-17 14:10 | PTOTSP ---
Speech Therapy Language Evaluation
Pt participated in the Quick Aphasia Battery (QAB) and earned an overall score of 6.74, indicative of moderate aphasia per parameters of this assessment. Pt demonstrated expressive language deficits in connected speech, picture naming, repetition,
and reading aloud. Pt demonstrated receptive language deficits in sentence comprehension. Recommend to continue DRIVER/REFUSE COLLECTOR services to address the aforementioned deficits.
[2024-03-17] MEDS: ZETIA 10 MG PO (23:07)
[2024-03-18 03:00] VITALS: BP 168/70
--- NOTE | 2024-03-18 05:47 | DOWNTIME ---
There was a [facility] [employer] Downtime on 03/18/2024 from 0100 to 03/18/2024 at 0355. Downtime documentation of patient's care, including medication administrations, has been reconciled in the electronic record per guidelines. Refer to the
patient's paper chart under the miscellaneous tab to see printed paper medication records and downtime forms.
[2024-03-18 06:39] LABS: % Basophils 0.6 % (0-2); % Eosinophils 1.7 % (0-6); % Immature Granulocytes 0.3 % (0-0.5); % Lymphocytes 11.8 % (20.5-51.1); % Neutrophils 74.6 % (42.2-75.2); Absolute Eosinophils 0.1 10^3/uL (0-0.7); Absolute Lymphocytes 0.7 10^3/uL (1.2-3.4); Absolute Monocytes 0.7 10^3/uL (0.1-0.6); Absolute Neutrophils 4.7 10^3/uL (1.4-6.5); Hematocrit 41.9 % (39.0-52.0); Hemoglobin 14.6 g/dL (13.0-18.0); Mean Corp Hgb Conc. 34.8 g/dL (33.0-37.0); Mean Corpuscular Hgb 29.5 pg (27.0-31.0); Mean Corpuscular Volume 84.6 fL (80.0-94.0); Mean Platelet Volume 9.9 fL (7.4-10.4); Nucleated Red Blood Cells % 0 % (-); Platelet Count 166 10^3/uL (130-400); Red Blood Cell Count 4.95 10^6/uL (4.70-6.10); Red Cell Dist. Width 13.5 % (11.5-14.5); White Blood Cell Count 6.3 10^3/uL (4.8-10.8)
[2024-03-18 07:04] LABS: Blood Urea Nitrogen 17 mg/dl (9-20); Calcium 8.8 mg/dl (8.4-10.2); Carbon Dioxide 26 mmol/L (22-30); Chloride 104 mmol/L (98-107); Estimated Creatinine Clearance 62 ml/min; Glucose 99 mg/dl (70-99); Potassium 3.4 mmol/L (3.5-5.1); Sodium 139 mmol/L (135-145); eGFR > 60.00
[2024-03-18 07:25] VITALS: BP 160/78
[2024-03-18] MEDS: PROCARDIA XL (EXTENDED RELEASE) 90 MG PO (08:13)
[2024-03-18] MEDS: LOPRESSOR 25 MG PO ×2 (08:14→19:50)
[2024-03-18] MEDS: ASPIR LOW (ENTERIC COATED) 81 MG PO (08:14)
[2024-03-18] MEDS: PLAVIX 75 MG PO (08:14)
[2024-03-18] MEDS: KCL 40 MEQ PO ×2 (08:15→19:50)
[2024-03-18] MEDS: LASIX 20 MG PO (08:15)
[2024-03-18] MEDS: CRESTOR 40 MG PO ×2 (08:15→19:50)
[2024-03-18] MEDS: HEPARIN 5000 UNITS SC ×2 (08:16→16:38)
[2024-03-18] MEDS: TOBRADEX EYE DROPS 1 DROP BOTH EYES ×3 (08:16→22:59)
[2024-03-18] MEDS: XANAX 0.25 MG PO ×3 (08:19→22:59)
[2024-03-18 10:32] VITALS: BP 163/76; BP 179/74; PULSE 71; O2SAT 97
--- NOTE | 2024-03-18 12:15 | CM ---
Patient off the floor, spoke with spouse bedside and son.
Patient doing better today.
Spouse feels patient may not need acute rehab.
Down for testing.
Plan for CEA while inpatient.
CM will continue to follow for d/c needs, probably home with VN.
Plan: home with VN
--- NOTE | 2024-03-18 12:33 | W.PN.HOSP.TC ---
Today's Communication/Plan
-
Start Keppra
Consider extended EEG
Plan for CEA versus stent of left ICA on Saturday
Assessment / Plan
Assessment / Plan
#Acute aphasia
-Suspect that this was a complex partial seizure, lasted near 24 hours and broke spontaneously
-CTH negative; CTA with signs of proximal left ICA stenosis of 66%; MRI yesterday negative
-Home meds include DAPT and statin from previous carotid stent, history of CABG
-EEG yesterday showed bihemispheric cortical dysfunction, single right frontal sharp
-Neurology and vascular surgery following
-NIHSS 0 today, able to form regular speech today
Plan
-Start Keppra at 500 mg twice daily, Ativan as needed for breakthrough events
-Consider extended EEG for further assessment
-Continue with neurochecks every 4 hours
#Left ICA stenosis
-CTA on arrival showed left ICA stenosis of near 66%
-Initial concern for CVA within this distribution though MRI negative
-Medications include DAPT and high intensity statin
-Carotid US and other surgical workup ordered by vascular team
-Plan for CEA versus left ICA stent on Saturday with vascular surgery
#S/P right CEA
-Medications include DAPT and statin
-CTA in the ED showed signs of left ICA stenosis
#CAD s/p CABG
-Home medications include DAPT with Plavix and aspirin, beta-jagdeep, high intensity statin
-Last echocardiogram showed preservation of systolic function
-No signs of ACS on this hospitalization
#Hypertension
-No known history of hypertensive systemic disease
-Home medications include nifedipine, metoprolol tartrate; also on Lasix
# Hyperlipidemia
-Does have significant ASCVD history with CAD and CABG, right ICA stent
-Home medications include high intensity statin, gemfibrozil, ezetimibe
-Holding gemfibrozil currently due to increased risks of rhabdomyolysis with other meds
#H/O atrial fibrillation
-Transient event that occurred following his coronary artery bypass graft
-He is not on any longstanding anticoagulant such as warfarin or DOAC
DVT prophylaxis: Subcutaneous heparin
Diet: Low-cholesterol
CODE STATUS: Full code
Anticipated Discharge: > 48 hours
Subjective/Interval History
-
Date of Service: March 18, 2024
Seen and examined at the bedside. No acute events reported overnight. AFVSS this morning. Remains without neurological deficits.
EEG yesterday did show some abnormalities. Will speak to neurology today about planning for extended EEG. Per the patient's , he has plan for intervention on his left internal carotid artery on this Saturday
Denies any acute complaints today including chest pain, shortness of breath, fevers chills, GI issues, urinary issues, bleeding bruising, paresthesias or weakness. No speech difficulties today either.
Objective Data
-
Labs:
Laboratory Results
03/18/24
06:18
WBC 6.3
Hgb 14.6
Hct 41.9
Plt Count 166
Sodium 139
Potassium 3.4 L
Chloride 104
Carbon Dioxide 26
BUN 17
Creatinine 0.9
Glucose 99
Calcium 8.8
Vital Signs:
Vital Signs
Temp Pulse Resp BP Pulse Ox
98.1 F 74 20 160/78 97
03/18/24 07:25 03/18/24 08:13 03/18/24 07:25 03/18/24 08:13 03/18/24 07:30
I&O
03/17/24 03/18/24 03/19/24
06:59 06:59 06:59
Intake Total 1080 / 1080 840 / 840
Output Total 1880 / 1880 275 / 275
Balance -800 / -800 565 / 565
Review of Systems
-
History Source: Patient
All other systems: Reviewed and negative
Physical Exam
-
General: Well Nourished, No Apparent Distress and Comfortable
HEENT: Normocephalic, Atraumatic and Moist Mucous Membranes
Respiratory: Clear to Auscultation and Non Labored Respirations; Negative Wheezes, Rales or Rhonchi
Cardiac: Regular Rhythm, S1/S2 and Carotid Bruits (Left (+)); Negative Murmur, Rub or Gallop
GI: Soft, Nontender, Nondistended and Normal Bowel Sounds
Musculoskeletal: No Clubbing, No Cyanosis and No Edema
Skin: Warm and Dry; Negative Rash
Neuro: AO x 3, Nonfocal/Grossly Intact and Central Nerve's Intact; Negative Tremors or Slurred Speech
Psych: Calm
Data Reviewed
-
Medical Tests (Nuc Med, Echo etc): Report Reviewed by me and Discussed with Patient
[2024-03-18 14:46] VITALS: BP 107/69; PULSE 80; O2SAT 97
[2024-03-18 14:47] VITALS: BP 107/69
[2024-03-18] MEDS: KEPPRA 500 MG PO (19:55)
[2024-03-18] MEDS: ZETIA 10 MG PO (22:59)
[2024-03-18 23:24] VITALS: BP 137/64
[2024-03-19] MEDS: HEPARIN SC (00:25)
[2024-03-19 06:29] LABS: % Basophils 0.6 % (0-2); % Eosinophils 2.9 % (0-6); % Immature Granulocytes 0.4 % (0-0.5); % Lymphocytes 11.3 % (20.5-51.1); % Monocytes 11.8 % (1.7-9.3); Absolute Eosinophils 0.2 10^3/uL (0-0.7); Absolute Lymphocytes 0.8 10^3/uL (1.2-3.4); Absolute Monocytes 0.9 10^3/uL (0.1-0.6); Absolute Neutrophils 5.3 10^3/uL (1.4-6.5); Hemoglobin 13.8 g/dL (13.0-18.0); Mean Corp Hgb Conc. 34.5 g/dL (33.0-37.0); Mean Corpuscular Hgb 30.5 pg (27.0-31.0); Mean Corpuscular Volume 88.3 fL (80.0-94.0); Nucleated Red Blood Cells % 0 % (-); Platelet Count 153 10^3/uL (130-400); Red Blood Cell Count 4.53 10^6/uL (4.70-6.10); Red Cell Dist. Width 13.5 % (11.5-14.5); White Blood Cell Count 7.2 10^3/uL (4.8-10.8)
[2024-03-19 07:00] LABS: Blood Urea Nitrogen 19 mg/dl (9-20); Calcium 8.7 mg/dl (8.4-10.2); Carbon Dioxide 26 mmol/L (22-30); Chloride 107 mmol/L (98-107); Estimated Creatinine Clearance 62 ml/min; Glucose 99 mg/dl (70-99); Sodium 142 mmol/L (135-145); eGFR > 60.00
[2024-03-19] MEDS: XANAX 0.25 MG PO ×3 (07:11→21:31)
[2024-03-19] MEDS: PLAVIX 75 MG PO (07:12)
[2024-03-19] MEDS: ASPIR LOW (ENTERIC COATED) 81 MG PO (07:12)
[2024-03-19] MEDS: CRESTOR 40 MG PO ×2 (07:12→19:47)
[2024-03-19] MEDS: KEPPRA 500 MG PO ×2 (07:12→19:47)
[2024-03-19] MEDS: PROCARDIA XL (EXTENDED RELEASE) 90 MG PO (07:12)
[2024-03-19] MEDS: LOPRESSOR 25 MG PO ×2 (07:13→19:47)
[2024-03-19] MEDS: HEPARIN 5000 UNITS SC ×2 (07:13→16:18)
[2024-03-19] MEDS: TOBRADEX EYE DROPS 1 DROP BOTH EYES ×3 (07:15→21:31)
[2024-03-19 07:20] VITALS: BP 149/78
[2024-03-19 08:11] VITALS: BP 156/83; PULSE 75; O2SAT 96
--- NOTE | 2024-03-19 11:01 | CM ---
PT/OT recommending home health.
Spoke with spouse and patient bedside.
Options reviewed.
Per spouse, patient had [facility] post cardiac surgery within the last year, were very happy with their service and would like to have [facility] again.
Referral placed via [facility].
Patient for CEA tomorrow. Possible weekend d/c.
Plan: home with [facility] once medically stable.
[facility]
--- NOTE | 2024-03-19 12:01 | W.PN.HOSP.TC ---
Addendum entered and electronically signed by Bao Silverio DO 03/20/24 13:02:
CDI: Hypokalemia present on 03/18 that resolved on 03/19 after repletion
Original Note:
Today's Communication/Plan
-
Continue with Keppra
Continue DAPT plus statin
Plan for CEA versus left ICA stent tomorrow
AAA repair planning likely outpatient
Assessment / Plan
Assessment / Plan
#Acute aphasia
#Presumed complex partial seizure
-Suspect that this was a complex partial seizure, lasted near 24 hours and broke spontaneously
-CTH negative; CTA with signs of proximal left ICA stenosis of 66%; MRI yesterday negative
-Home meds include DAPT and statin from previous carotid stent, history of CABG
-EEG yesterday showed bihemispheric cortical dysfunction, single right frontal sharp
-Was started on Keppra regimen, as needed Ativan; no recurrent symptoms
-NIHSS 0 today, able to form regular speech today
-Continue with Keppra 500 mg twice daily
-Continue neurochecks
#Left ICA stenosis
-CTA on arrival showed left ICA stenosis of near 66%
-Initial concern for CVA within this distribution though MRI negative
-Medications include DAPT and high intensity statin
-Carotid US and other surgical workup ordered by vascular team
-Plan for CEA versus left ICA stent on Saturday with vascular surgery
#S/P right CEA
-Medications include DAPT and statin
-CTA in the ED showed signs of left ICA stenosis
#AAA
-CTA abdomen pelvis here showed fairly large AAA with dimensions 5.3 x 5.8 cm
-Vascular surgery following, will likely need intervention such as EVAR
-Intervention will likely occur in the outpatient setting, CEA planned for tomorrow
-Will continue with DAPT and statin
#CAD s/p CABG
-Home medications include DAPT with Plavix and aspirin, beta-jagdeep, high intensity statin
-Last echocardiogram showed preservation of systolic function
-No signs of ACS on this hospitalization
#Hypertension
-No known history of hypertensive systemic disease
-Home medications include nifedipine, metoprolol tartrate; also on Lasix
# Hyperlipidemia
-Does have significant ASCVD history with CAD and CABG, right ICA stent
-Home medications include high intensity statin, gemfibrozil, ezetimibe
-Holding gemfibrozil currently due to increased risks of rhabdomyolysis with other meds
#H/O atrial fibrillation
-Transient event that occurred following his coronary artery bypass graft
-He is not on any longstanding anticoagulant such as warfarin or DOAC
DVT prophylaxis: Subcutaneous heparin
Diet: Low-cholesterol
CODE STATUS: Full code
Anticipated Discharge: > 48 hours
Subjective/Interval History
-
Date of Service: March 19, 2024
Seen and examined at the bedside. No acute events reported overnight. AFVSS this morning.
Planning for CEA of the left ICA tomorrow. Will be n.p.o. after midnight
Denies all acute complaints including chest pain, dyspnea, fevers or chills, GI issues, urinary issues, bleeding or bruising, paresthesias or weakness.
Objective Data
-
Labs:
Laboratory Results
03/19/24
06:00
WBC 7.2
Hgb 13.8
Hct 40.0
Plt Count 153
Sodium 142
Potassium 4.0
Chloride 107
Carbon Dioxide 26
BUN 19
Creatinine 0.9
Glucose 99
Calcium 8.7
Vital Signs:
Vital Signs
Temp Pulse Resp BP Pulse Ox
98.3 F 74 16 149/78 96
03/19/24 07:20 03/19/24 07:20 03/19/24 07:20 03/19/24 07:20 03/19/24 07:20
I&O
03/18/24 03/19/24 03/20/24
06:59 06:59 06:59
Intake Total 840 / 840 960 / 960
Output Total 275 / 275 800 / 800
Balance 565 / 565 160 / 160
Review of Systems
-
History Source: Patient
All other systems: Reviewed and negative
Physical Exam
-
General: Well Nourished, No Apparent Distress and Comfortable
HEENT: Normocephalic, Atraumatic and Moist Mucous Membranes
Respiratory: Clear to Auscultation and Non Labored Respirations; Negative Wheezes, Rales or Rhonchi
Cardiac: Regular Rhythm, S1/S2 and Carotid Bruits (Left carotid bruit present); Negative Murmur, Rub or Gallop
GI: Soft, Nontender, Nondistended, Normal Bowel Sounds and Other
Musculoskeletal: No Clubbing, No Cyanosis, No Edema and Normal Gait & Station
Skin: Warm and Dry; Negative Rash
Neuro: AO x 3, Nonfocal/Grossly Intact and Central Nerve's Intact
Psych: Calm
Data Reviewed
-
Labs: Labs Reviewed by me and Discussed with Patient
[2024-03-19 15:42] VITALS: BP 148/76
[2024-03-19] MEDS: ZETIA 10 MG PO (21:31)
[2024-03-19 23:30] VITALS: BP 158/80
[2024-03-20] VITALS (12 sets, daily range): BP systolic 119–143; BP diastolic 64–92; PULSE 82; O2SAT 96; BMI 25.6; BMI 24.3
[2024-03-20] MEDS: HEPARIN SC ×3 (00:13→20:20)
[2024-03-20] MEDS: PROCARDIA XL (EXTENDED RELEASE) 90 MG PO (07:24)
[2024-03-20] MEDS: TOBRADEX EYE DROPS 1 DROP BOTH EYES (07:25)
[2024-03-20] MEDS: CRESTOR 40 MG PO ×2 (07:25→20:41)
[2024-03-20] MEDS: ASPIR LOW (ENTERIC COATED) 81 MG PO (07:26)
[2024-03-20] MEDS: XANAX 0.25 MG PO ×2 (07:26→23:14)
[2024-03-20] MEDS: LASIX 20 MG PO (07:26)
[2024-03-20] MEDS: PLAVIX 75 MG PO (07:26)
[2024-03-20] MEDS: LOPRESSOR 25 MG PO ×2 (07:27→20:40)
[2024-03-20] MEDS: KEPPRA 500 MG PO ×2 (07:27→20:41)
--- NOTE | 2024-03-20 09:24 | PN.CDI ---
CDI
- -
CDI:
Physician Documentation Request
Admit Date: 03/15/24 17:37
Dear Doctor Jean Claude,
Clinical Indicators:
Patient admitted with presumed complex partial seizure.
03/18 Potassium chloride 40 meq x 2 doses.
Potassium level:
03/18/24
06:18
Potassium 3.4 L
Based on the above, could you clarify in the progress notes, the appropriate diagnosis, if significant, that supports the above abnormalities and additional evaluation, monitoring and/or treatment rendered:
Hypokalemia
Abnormal lab value, clinically insignificant
Other, please specify
Use of terms such as suspected, likely, concern for, or probable (associated with a specific diagnosis that is being evaluated, monitored, or treated as if it exists) are acceptable and can be coded in the inpatient setting, when documented at the
time of discharge.
Thank you,
Kate Sparks RN BSN
CDI Specialist
available via tiger text
Please use your independent medical judgment in providing your response.
[2024-03-20 09:33] LABS: % Basophils 0.6 % (0-2); % Eosinophils 1.7 % (0-6); % Immature Granulocytes 0.3 % (0-0.5); % Lymphocytes 7.4 % (20.5-51.1); % Monocytes 9.8 % (1.7-9.3); % Neutrophils 80.2 % (42.2-75.2); Absolute Eosinophils 0.1 10^3/uL (0-0.7); Absolute Lymphocytes 0.5 10^3/uL (1.2-3.4); Absolute Monocytes 0.7 10^3/uL (0.1-0.6); Absolute Neutrophils 5.5 10^3/uL (1.4-6.5); Hematocrit 42.9 % (39.0-52.0); Hemoglobin 14.6 g/dL (13.0-18.0); Mean Corpuscular Hgb 29.7 pg (27.0-31.0); Mean Corpuscular Volume 87.2 fL (80.0-94.0); Mean Platelet Volume 10.8 fL (7.4-10.4); Nucleated Red Blood Cells % 0 % (-); Platelet Count 170 10^3/uL (130-400); Red Blood Cell Count 4.92 10^6/uL (4.70-6.10); Red Cell Dist. Width 13.6 % (11.5-14.5); White Blood Cell Count 6.9 10^3/uL (4.8-10.8)
[2024-03-20 09:47] LABS: INR 1.02; PT 13.2 Sec (11.4-14.6)
[2024-03-20 09:48] LABS: APTT 32.8 Sec (23.4-35.0)
[2024-03-20 10:08] LABS: Blood Urea Nitrogen 14 mg/dl (9-20); Calcium 8.9 mg/dl (8.4-10.2); Carbon Dioxide 26 mmol/L (22-30); Chloride 104 mmol/L (98-107); Estimated Creatinine Clearance 56 ml/min; Glucose 95 mg/dl (70-99); Potassium 4.2 mmol/L (3.5-5.1); Sodium 140 mmol/L (135-145); eGFR > 60.00
--- NOTE | 2024-03-20 11:17 | W.PN.HOSP.TC ---
Today's Communication/Plan
-
Vascular procedure (left ICA stent for CEA)
Continue with Keppra
Plan for diet after procedure
Assessment / Plan
Assessment / Plan
#Acute aphasia
#Presumed complex partial seizure
-Suspect that this was a complex partial seizure, lasted near 24 hours and broke spontaneously
-CTH negative; CTA with signs of proximal left ICA stenosis of 66%; MRI yesterday negative
-EEG yesterday showed bihemispheric cortical dysfunction, single right frontal sharp
-Was started on Keppra regimen, as needed Ativan; no recurrent symptoms
-Continue with Keppra 500 mg twice daily and neurochecks
#Left ICA stenosis
-CTA on arrival showed left ICA stenosis of near 66%
-Initial concern for CVA within this distribution though MRI negative
-Medications include DAPT and high intensity statin
-Carotid US and other surgical workup ordered by vascular team
-Plan for left ICA stent today
#S/P right CEA
-Medications include DAPT and statin
-CTA in the ED showed signs of left ICA stenosis
#AAA
-CTA abdomen pelvis here showed fairly large AAA with dimensions 5.3 x 5.8 cm
-Vascular surgery following, will likely need intervention such as EVAR
-Intervention will likely occur in the outpatient setting, CEA planned for tomorrow
-Will continue with DAPT and statin
#CAD s/p CABG
-Home medications include DAPT with Plavix and aspirin, beta-jagdeep, high intensity statin
-Last echocardiogram showed preservation of systolic function
-No signs of ACS on this hospitalization
#Hypertension
-No known history of hypertensive systemic disease
-Home medications include nifedipine, metoprolol tartrate; also on Lasix
# Hyperlipidemia
-Does have significant ASCVD history with CAD and CABG, right ICA stent
-Home medications include high intensity statin, gemfibrozil, ezetimibe
-Holding gemfibrozil currently due to increased risks of rhabdomyolysis with other meds
#H/O atrial fibrillation
-Transient event that occurred following his coronary artery bypass graft
-He is not on any longstanding anticoagulant such as warfarin or DOAC
DVT prophylaxis: Subcutaneous heparin
Diet: Low-cholesterol
CODE STATUS: Full code
Anticipated Discharge: > 48 hours
Subjective/Interval History
-
Date of Service: March 20, 2024
Seen and examined at the bedside. No acute events reported overnight. AFVSS this morning.
He states he feels well, ready for procedure today (plan for vascular surgery at 1 to 2 PM)
Denies any acute complaints including dyspnea, chest pain, lightheadedness, fevers or chills, palpitations, GI issues, urinary issues, paresthesias or weakness. Denies any bleeding or bruising
Objective Data
-
Labs:
Laboratory Results
03/20/24
08:07
WBC 6.9
Hgb 14.6
Hct 42.9
Plt Count 170
PT 13.2
INR 1.02
APTT 32.8
Sodium 140
Potassium 4.2
Chloride 104
Carbon Dioxide 26
BUN 14
Creatinine 1.0
Glucose 95
Calcium 8.9
Vital Signs:
Vital Signs
Temp Pulse Resp BP Pulse Ox
98.0 F 77 16 128/71 98
03/20/24 07:30 03/20/24 07:30 03/20/24 07:30 03/20/24 07:30 03/20/24 08:50
I&O
03/19/24 03/20/24 03/21/24
06:59 06:59 06:59
Intake Total 960 / 960 1080 / 1080
Output Total 800 / 800 1350 / 1350
Balance 160 / 160 -270 / -270
Review of Systems
-
History Source: Patient
All other systems: Reviewed and negative
Physical Exam
-
General: Well Nourished, No Apparent Distress and Comfortable
HEENT: Normocephalic, Atraumatic and Moist Mucous Membranes
Respiratory: Clear to Auscultation and Non Labored Respirations; Negative Wheezes, Rales or Rhonchi
Cardiac: Regular Rhythm, S1/S2 and Carotid Bruits (Left-sided (+)); Negative Murmur, Rub, JVD or Gallop
GI: Soft, Nontender, Nondistended and Normal Bowel Sounds
Musculoskeletal: No Clubbing, No Cyanosis, No Edema and Normal Gait & Station
Skin: Warm, Dry and Normal Turgor; Negative Rash
Neuro: AO x 3, Nonfocal/Grossly Intact and Central Nerve's Intact
Psych: Calm
Data Reviewed
-
Labs: Labs Reviewed by me and Discussed with Patient
--- NOTE | 2024-03-20 11:29 | CM ---
Met with patient and at bedside today
Vascular procedure today (left ICA stent for CEA).
Plan: home with Deb MILLIGAN when stable. will transport home
--- NOTE | 2024-03-20 13:37 | CON.INTV ---
Consultation
Consultation Request
Date/Time Consultation Requested: 03/20/2024-1:30 PM
Date/Time Consultation Performed: 03/20/2024-2:30 PM
Requesting Provider: Vascular surgery
Performing Provider: Dr. Martinez
Reason for Consultation: Postoperative critical care management
Medical History
-
Chief Complaint: Carotid stenosis
History of Present Illness:
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
management 03/20/2024.
Past Medical History
Past Medical History: None (Hypertension. Hyperlipidemia. CAD/CABG. Right ICA stent. PAF. Inguinal hernia. Bilateral cataract surgery. Former smoker.)
Social History
Tobacco: Former Smoker
Drug: None
Personal:
Living: With Family
Occupational Exposures: No known asbestos exposure
Environmental Exposures: No known tuberculosis exposure
Family History
Family History: Reviewed & Not Pertinent
Allergies / Home Medications
Allergies
Allergy/AdvReac Type Severity Reaction Status Date / Time
No Known Allergies Allergy Verified 03/15/24 15:44
Home Medications
�Medication �Instructions �Recorded �Confirmed �Last Taken �Type
alprazolam 0.25 mg tablet 0.25 mg PO TID 12/11/12 03/15/24 12/11/12 08:00 History
clopidogrel 75 mg tablet 75 mg PO DAILY 12/11/12 03/15/24 12/11/12 08:00 History
ezetimibe 10 mg tablet 10 mg PO HS 12/11/12 03/15/24 12/10/12 18:30 History
gemfibrozil 600 mg tablet 600 mg PO BID 12/11/12 03/15/24 12/18/12 History
rosuvastatin 40 mg tablet (Crestor) 40 mg PO BID 12/11/12 03/15/24 12/10/12 18:30 History
aspirin 81 mg tablet,delayed 81 mg PO DAILY 07/01/23 03/15/24 Unknown History
release
metoprolol tartrate 25 mg tablet 25 mg PO BID 07/01/23 03/15/24 Unknown History
nifedipine 90 mg tablet,extended 90 mg PO DAILY 07/01/23 03/15/24 Unknown History
release 24 hr
furosemide 20 mg tablet (Lasix) 20 mg PO MOWEFR 03/15/24 03/15/24 Unknown History
tobramycin 0.3 %-dexamethasone 0.1 1 drp BOTH EYES TID 03/15/24 03/15/24 Unknown History
% eye drops,suspension
Review of Systems
-
Unable to Obtain full review of systems at this time due to: Other (Per HPI)
Vitals / Labs / Diagnostic Testing
Vital Signs
Temp Pulse Resp BP Pulse Ox
98.0 F 77 16 128/71 98
03/20/24 07:30 03/20/24 07:30 03/20/24 07:30 03/20/24 07:30 03/20/24 08:50
Lab Data
03/20/24 08:07
03/20/24 08:07
Laboratory Results
03/20/24
08:07
PT 13.2
INR 1.02
APTT 32.8
Diagnostic Testing:
Physical Exam
-
Exam:
Well-nourished and well-developed in no apparent distress
HEENT-atraumatic, normocephalic
Neck-supple, no JVD, no bruit
Heart-regular rate and rhythm-no murmurs, rubs or gallops
Chest-clear to auscultation, no wheezes, crackles
Back-no tenderness
Abdomen-soft, nontender, nondistended, no hepatosplenomegaly
Extremities-no cyanosis, clubbing, edema and good peripheral pulses
Integument-intact, no rashes, lesions or ecchymosis
Neurology-alert and oriented, nonfocal motor and sensory exam
Assessment
-
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
management 03/20/2024.
Acute aphasia-differential partial complex seizure versus prolonged TIA with severe carotid stenosis
Status post left transcarotid artery revascularization with flow reversal embolic protection all
History of right CEA
Obstructive sleep apnea suspected
Conditions present prior to admission:
Hypertension.
Hyperlipidemia.
CAD/CABG.
Right ICA stent.
PAF.
Former smoker
Inguinal hernia. Bilateral cataract surgery.
Plan
Postoperative surgical intensive care unit monitoring
Supplemental oxygen as needed
Incentive spirometry
Aspiration precautions
Neuro and vascular checks per protocol
Vascular surgery following-correspondence and operative notes reviewed
DVT prophylaxis
Early nutrition
Early mobilization
If remains neurovascularly intact may be downgraded to telemetry or discharged later on this afternoon-general laborer will sign off-please call pulmonary if respiratory issues arise
Patient with some signs and symptoms of obstructive sleep apnea-recommend outpatient evaluation/home sleep study
Critical care statement: A total of 50 minutes of critical care time was provided for this patient today. This includes management of unstable vital signs, evaluation of the patient at bedside, reviewing the patient's pertinent medical records
including radiographs, microbiology, laboratory evaluations, and discussion with primary team, consultants, pharmacy, nutrition, physical therapy, case management, charge nurse, critical care nursing, and respiratory therapy.
Diagnostic data:
Chest x-ray 08/22/2023-moderate partially loculated left pleural effusion
CT abdomen and pelvis 03/17/2024-fusiform aneurysmal dilation infrarenal abdominal aortic, 3.9 cm left renal cyst, sigmoid diverticulosis
Brain MRI 03/16/2024-no MRI evidence for acute infarct or intracranial hemorrhage, 4.5 mm chronic lacunar infarct body of right caudate nucleus, 3.8 mm chronic white matter infarct posterior left parietal lobe
Echocardiogram 03/16/2024-EF 55-60%, no valvular disease
Data Reviewed
-
EKG: Report reviewed by me
Radiology: Report reviewed by me
CT Scan: Report reviewed by me
MRI: Report reviewed by me
Medical Tests (Nuc Med, Echo etc): Report reviewed by me
Labs: Labs reviewed by me
Old Records: Reviewed
Critical Care Time (in minutes): 50
--- NOTE | 2024-03-20 13:44 | W.SUR.PREOP ---
Pre-Operative Surgical Note
-
I have examined this patient prior to the performance of the scheduled procedure.
The patient's condition is unchanged from the time of the current History and
Physical and the patient is able to undergo the scheduled procedure.
[2024-03-20] MEDS: BACTROBAN 2% OINTMENT 1 APPLIC NASAL (14:00)
[2024-03-20] MEDS: PERIDEX 0.12% ORAL RINSE 15 ML PO ×2 (14:00→20:40)
--- NOTE | 2024-03-20 14:23 | PTCARENOTE ---
Dr Bernstein at pt bedside speaking to pt and pt's .
[2024-03-20 16:45] LABS: ACT-LR - POC 385 Seconds (116-155)
--- NOTE | 2024-03-20 17:16 | PTCARENOTE ---
03/20- 1599 meds not to be given by this RN d/t patient being in Cardiac procedure then to be transferred to ICU post-procedure. Will send belongings from room once room assignment is given.
[2024-03-20 17:19] LABS: ACT-LR - POC 374 Seconds (116-155)
--- NOTE | 2024-03-20 17:49 | OR.RPT ---
Operative Report
Operative Report
Date of operation: 03/20/2024
Pre Op Diagnosis: Symptomatic left carotid stenosis
Post Op Diagnosis: Symptomatic left carotid stenosis
Procedure:
1.) LEFT trans-carotid artery revascularization with flow reversal embolic protection
10 mm x 40 mm ENROUTE STENT
6 mm x 30 mm pre- balloon angioplasty
2.) Ultrasound-guided percutaneous access to the right common femoral vein
Surgeon: Orville Morales III, MD
Examination Proctor: Jia Self MD PGY-8
Anesthesia: General
Complications: None
Estimated Blood Loss: Minimal
History and Indications for Procedure: 83-year-old male with symptomatic left carotid stenosis.
Procedure in Detail: Chandra Hernandez was correctly identified and placed supine on the operating table. After adequate induction of anesthesia the left neck was positioned appropriately. Using ultrasound guidance I identified the left common carotid
artery at the base of the left neck in between the heads of the sternocleidomastoid muscle. The left neck was then prepped and draped in usual sterile fashion. Similarly the bilateral groins were prepped and draped in the usual sterile fashion.
Preoperative antibiotics were administered. A timeout procedure was performed with the nursing and anesthesia staff confirming the patient's identity as well as the nature and laterality of the procedure.
A small vertical incision was made at the base of the left neck and between the 2 heads of the sternocleidomastoid muscle. Using electrocautery and sharp dissection the left common carotid artery was exposed. The vagus nerve was identified and
protected. The proximal left common carotid artery was encircled with a vessel loop. A 5-0 Prolene pursestring suture was then placed around the proposed puncture site in the left common carotid artery. Systemic heparin was administered at this
point.
Under ultrasound guidance I accessed the right common femoral vein with a micropuncture needle. I then advanced the micro-dilator and sheath over the microwire. A Tomo Clasesson wire was then easily advanced through the micro-sheath and the 8 Luxembour[place] sheath
was inserted. The side port was aspirated and then flushed with heparinized saline solution.
The left common carotid artery was then accessed with the marked micropuncture needle through the pursestring site. The microwire was then easily advanced to the clear chase on the wire. The micro-sheath was then easily advanced over the wire to the
3 cm chase. The inner dilator and wire were removed. An initial carotid arteriogram was then performed which demonstrated a high-grade stenosis of the proximal left internal carotid artery. The external carotid artery was patent. The common carotid
artery was patent. The location of the carotid bifurcation was marked on the screen. The external carotid artery was selected with the microwire. The micro sheath was advanced with the dilator to the final black chase. An arteriogram confirmed
position in the external. The J-wire was then carefully inserted through the microsheath to the external carotid artery. The 8 Luxembourger arterial sheath was then inserted carefully under radiographic visualization keeping the J-wire tip in the
external carotid artery. The sheath was then secured in place at the skin level using 2 separate silk sutures. The ENROUTE SITE MANAGER flow reversal system was connected, switched to the high setting and the patient was placed on passive flow reversal. Flow
reversal was confirmed with the heparin saline syringe test on the groin sheath.
At this point an additional arteriogram was performed via the 8 Fr carotid sheath in a more lateral projection to splay the carotid bifurcation. The screen was marked and a roadmap was set. The left common carotid artery vessel loop was secured at
this point and the patient was placed on high flow flow reversal. Under roadmap guidance the left internal carotid artery lesion was crossed with a 0.014 wire. The tip of the wire was placed in the distal internal carotid artery. A 6 mm x 30 mm
angioplasty balloon was then positioned across the high-grade stenosis in the left internal carotid artery. Predilatation angioplasty was performed with this balloon. The balloon was removed over the wire. A 10 mm x 40 mm ENROUTE stent was then
positioned in the desired location under roadmap guidance and deployed successfully. The delivery system was removed.
Completion arteriogram was performed with temporary cessation of flow reversal. This demonstrated an excellent technical result. The carotid stent was widely patent and in the desired location. There was brisk flow through the stent and into the
intracranial circulation. No significant residual stenosis was identified. No filling defects or other abnormalities were noted in the common carotid artery.
The left common carotid artery vessel loop was then released. The ENROUTE SITE MANAGER flow reversal system was disconnected from both the common carotid artery and femoral venous sheaths. The common carotid artery sheath was then removed and the 5-0 Prolene
pursestring secured. The suture line was closely inspected and hemostasis was achieved. Hemostasis was achieved in the wound bed. The wound was irrigated with saline solution. There was an excellent pulse in the common carotid artery proximal and
distal to the sheath entry site repair. The wound was then closed in layers and skin glue was applied.
The right femoral venous sheath was pulled and direct pressure was held over the puncture site for 10 minutes. Hemostasis was achieved and a sterile dressing was applied.
The patient awoke from general anesthesia with no immediate neurologic deficits. He was taken to the recovery room in stable condition.
Attestation: I was present and responsible for the entire procedure
Signed:
Orville Morales III, MD
[facility] Vascular Surgery
[phone] (cell)
[2024-03-20] MEDS: DILAUDID 0.25 MG IV ×5 (18:19→23:14)
--- NOTE | 2024-03-20 18:27 | PTCARENOTE ---
Patient transported to Cat scan
[2024-03-20 18:30] LABS: Blood Urea Nitrogen 15 mg/dl (9-20); Calcium 8.6 mg/dl (8.4-10.2); Carbon Dioxide 23 mmol/L (22-30); Chloride 106 mmol/L (98-107); Estimated Creatinine Clearance 62 ml/min; Glucose 114 mg/dl (70-99); Potassium 4.2 mmol/L (3.5-5.1); Sodium 141 mmol/L (135-145); eGFR > 60.00
[2024-03-20 18:39] LABS: Hematocrit 42.8 % (39.0-52.0); Mean Corpuscular Hgb 30.7 pg (27.0-31.0); Mean Corpuscular Volume 87.7 fL (80.0-94.0); Mean Platelet Volume 10.5 fL (7.4-10.4); Platelet Count 169 10^3/uL (130-400); Red Blood Cell Count 4.88 10^6/uL (4.70-6.10); Red Cell Dist. Width 13.3 % (11.5-14.5); White Blood Cell Count 15.2 10^3/uL (4.8-10.8)
--- NOTE | 2024-03-20 19:06 | PTCARENOTE ---
Patient return to recovery post cat-scan.
[2024-03-20] MEDS: TOBRADEX EYE DROPS BOTH EYES (20:20)
[2024-03-20] MEDS: XANAX PO (20:21)
--- NOTE | 2024-03-20 20:30 | PTCARENOTE ---
Patient arrived from PACU s/p TARV. Assumed care of patient. Patient awake, alert, oriented to self and time. Patient aphasic and slightly confused. NIH done, neurovascular checks done. Patient assessed, see flow sheet for full assessment. Oriented
to room, call [place] within reach. safety maintained
[2024-03-20] MEDS: NSS 1000 IV (20:40)
[2024-03-20] MEDS: HEPARIN 5000 UNITS SC (23:14)
[2024-03-20] MEDS: ZETIA 10 MG PO (23:14)
[2024-03-20] MEDS: APRESOLINE 10 MG IV (23:14)
[2024-03-21] VITALS (25 sets, daily range): BP systolic 107–135; BP diastolic 45–59; PULSE 65; O2SAT 96
[2024-03-21] MEDS: TOBRADEX EYE DROPS BOTH EYES (00:19)
[2024-03-21 04:20] LABS: Hematocrit 36.9 % (39.0-52.0); Hemoglobin 13.1 g/dL (13.0-18.0); Mean Corp Hgb Conc. 35.5 g/dL (33.0-37.0); Mean Corpuscular Hgb 30.1 pg (27.0-31.0); Mean Corpuscular Volume 84.8 fL (80.0-94.0); Mean Platelet Volume 10.2 fL (7.4-10.4); Platelet Count 169 10^3/uL (130-400); Red Blood Cell Count 4.35 10^6/uL (4.70-6.10); Red Cell Dist. Width 13.4 % (11.5-14.5); White Blood Cell Count 9.2 10^3/uL (4.8-10.8)
[2024-03-21 04:33] LABS: INR 1.06; PT 13.6 Sec (11.4-14.6)
[2024-03-21 05:02] LABS: Blood Urea Nitrogen 19 mg/dl (9-20); Calcium 8.2 mg/dl (8.4-10.2); Carbon Dioxide 19 mmol/L (22-30); Chloride 107 mmol/L (98-107); Estimated Creatinine Clearance 51 ml/min; Glucose 97 mg/dl (70-99); Magnesium 1.7 mg/dl (1.6-2.3); Phosphorus 5.2 mg/dl (2.5-4.5); Potassium 4.1 mmol/L (3.5-5.1); Sodium 140 mmol/L (135-145); eGFR > 60.00
[2024-03-21] MEDS: DILAUDID 0.5 MG IV (05:47)
[2024-03-21] MEDS: CRESTOR 40 MG PO ×2 (07:22→19:52)
[2024-03-21] MEDS: KEPPRA 500 MG PO ×2 (07:22→19:52)
[2024-03-21] MEDS: XANAX 0.25 MG PO ×3 (07:22→21:56)
[2024-03-21] MEDS: PROCARDIA XL (EXTENDED RELEASE) 90 MG PO (07:23)
[2024-03-21] MEDS: PLAVIX 75 MG PO (07:23)
[2024-03-21] MEDS: ASPIR LOW (ENTERIC COATED) 81 MG PO (07:24)
[2024-03-21] MEDS: HEPARIN SC ×3 (07:25→16:10)
[2024-03-21] MEDS: PERIDEX 0.12% ORAL RINSE 15 ML PO ×2 (07:25→19:52)
[2024-03-21] MEDS: TOBRADEX EYE DROPS 1 DROP BOTH EYES ×3 (07:27→21:56)
[2024-03-21] MEDS: LOPRESSOR PO (08:00)
[2024-03-21] MEDS: TYLENOL 650 MG PO (08:30)
--- NOTE | 2024-03-21 09:01 | W.PN.VS ---
Today's Communication / Plan
-
Patient seen and examined with Dr. Chi Munson, below plan reviewed with attending.
Assessment/Plan
-
Assessment: 83 year old male POD#1 Left TCAR
Plan:
Discontinue arterial line
Discontinue IV fluids
Must continue DAPT of 75mg plavix PO daily and aspirin 81mg PO daily with stent placement
OOB to chair with progression to ambulation as tolerated
If he tolerates ambulation, blood pressure remains stable, and no changes to left surgical neck/chest site he is eligible for discharge or downgrade to telemetry this afternoon from a vascular surgery perspective
Subjective Data
-
Date of Service: March 21, 2024
Patient seen and examined at bedside, offers no complaints. Does endorse continued scant right tongue deviation, can cross midline. Head and neck CTA obtained demonstrating no acute occlusion and head CT negative for acute abnormality.
Objective Data
-
Vital Signs
Temp Pulse Resp BP Pulse Ox
97.6 F 58 19 134/56 94
03/21/24 07:00 03/21/24 07:23 03/20/24 19:45 03/21/24 07:23 03/21/24 08:53
Intake and Output
03/20/24 03/21/24 03/22/24
06:59 06:59 06:59
Intake Total 1080 / 1080 1500 / 1500
Output Total 1350 / 1350 500 / 500
Balance -270 / -270 1000 / 1000
Intake:
Oral fluids 1080 / 1080 240 / 240
IV fluids (Total) 1260 / 1260
Normosol 1260 / 1260
Output:
Urine, Voided 1350 / 1350 500 / 500
Lab Results
03/21/24 04:08
03/21/24 04:08
Calcium 8.2 mg/dl (8.4-10.2) L 03/21/24 04:08
Phosphorus 5.2 mg/dl (2.5-4.5) H 03/21/24 04:08
Magnesium 1.7 mg/dl (1.6-2.3) 03/21/24 04:08
Total Bilirubin Cancelled 03/15/24 20:22
AST Cancelled 03/15/24 20:22
ALT Cancelled 03/15/24 20:22
Alkaline Phosphatase Cancelled 03/15/24 20:22
Total Protein Cancelled 03/15/24 20:22
Albumin Cancelled 03/15/24 20:22
Physical Exam
-
AAOx3, NAD
Left lower neck/chest surgical site CDI, exofin and suture line well approximated, no edema, scat ecchymosis, face symmetrical, scant right tongue deviation, patient able to move tongue side to side, no evidence of aphasia
No tachycardia
No dyspnea on room air
Moves BL LE and UE to command and spontaneously, equal strength
--- NOTE | 2024-03-21 09:30 | PTCARENOTE ---
Assumed care of pt from night patrol inspector RN. AAOx3. NIHSS 1, mild slurred speech but easy to understand. Pt continues with slight right sided tongue deviation. NSR/SB on court monitor. SpO2 94% on room air. VSS. L radial leonela removed. New dressing
placed, CDI. L neck and R groin procedural sites WDL. B/L LE dorsalis pedis and posterior tibial pulses present with doppler. IVF discontinued. Diet advanced to cholesterol lowering, pt tolerating. Assessment documented. Pt OOB to chair. Call [facility]
in reach. Plan for PT/OT later today and possible downgrade to tele.
[2024-03-21] MEDS: NSS IV (09:31)
[2024-03-21] MEDS: DILAUDID 0.25 MG IV (09:34)
--- NOTE | 2024-03-21 11:07 | W.PN.HOSP.TC ---
Today's Communication/Plan
-
Monitor in ICU
Possible discharge later today
Assessment / Plan
Assessment / Plan
#Presumed complex partial seizure
#Acute aphasia
-Suspect that this was a complex partial seizure, lasted near 24 hours and broke spontaneously
-CTH negative; CTA with signs of proximal left ICA stenosis of 66%; MRI yesterday negative
-EEG yesterday showed bihemispheric cortical dysfunction, single right frontal sharp
-Was started on Keppra regimen, as needed Ativan; no recurrent symptoms
-Continue with Keppra 500 mg twice daily and neurochecks
#Left ICA stenosis
#Status post left ICA stent -- POD #1
-CTA on arrival showed left ICA stenosis of near 66%
-Initial concern for CVA within this distribution though MRI negative
-Medications include DAPT and high intensity statin
-Carotid US and other surgical workup ordered by vascular team
-Successfully placed left carotid stent on 03/20
#S/P right CEA
-Medications include DAPT and statin
-CTA in the ED showed signs of left ICA stenosis
#AAA
-CTA abdomen pelvis here showed fairly large AAA with dimensions 5.3 x 5.8 cm
-Vascular surgery following, will likely need intervention such as EVAR
-Intervention will likely occur in the outpatient setting
-Will continue with DAPT and statin
#CAD s/p CABG
-Home medications include DAPT with Plavix and aspirin, beta-jagdeep, high intensity statin
-Last echocardiogram showed preservation of systolic function
-No signs of ACS on this hospitalization
#Hypertension
-No known history of hypertensive systemic disease
-Home medications include nifedipine, metoprolol tartrate; also on Lasix
# Hyperlipidemia
-Does have significant ASCVD history with CAD and CABG, right ICA stent
-Home medications include high intensity statin, gemfibrozil, ezetimibe
-Holding gemfibrozil currently due to increased risks of rhabdomyolysis with other meds
#H/O atrial fibrillation
-Transient event that occurred following his coronary artery bypass graft
-He is not on any longstanding anticoagulant such as warfarin or DOAC
DVT prophylaxis: Subcutaneous heparin
Diet: Low-cholesterol
CODE STATUS: Full code
Anticipated Discharge: Within 24 hours
Subjective/Interval History
-
Date of Service: March 21, 2024
Seen and examined at bedside. No acute events overnight. AFVSS this morning. Heart rate borderline bradycardic, morning metoprolol held.
No complications with left carotid stent placement was performed yesterday. Postoperative day #1 today. Patient asking to leave the hospital.
Was noted to have some rightward deviation of his tongue prior to intubation for procedure yesterday. CT head negative for any acute findings.
Denies any acute complaints including chest pain, dyspnea, fevers or chills, lightheadedness, GI issues, urinary issues, bleeding or bruising, paresthesias or weakness.
Objective Data
-
Labs:
Laboratory Results
03/21/24
04:08
WBC 9.2
Hgb 13.1
Hct 36.9 L
Plt Count 169
PT 13.6
INR 1.06
APTT 36.0 H
Sodium 140
Potassium 4.1
Chloride 107
Carbon Dioxide 19 L
BUN 19
Creatinine 1.1
Glucose 97
Calcium 8.2 L
Vital Signs:
Vital Signs
Temp Pulse Resp BP Pulse Ox
97.6 F 52 15 114/48 95
03/21/24 07:00 03/21/24 10:30 03/21/24 10:30 03/21/24 10:00 03/21/24 10:30
I&O
03/20/24 03/21/24 03/22/24
06:59 06:59 06:59
Intake Total 1080 / 1080 1500 / 1500
Output Total 1350 / 1350 500 / 500
Balance -270 / -270 1000 / 1000
Review of Systems
-
History Source: Patient
All other systems: Reviewed and negative
Physical Exam
-
General: Well Nourished, No Apparent Distress and Comfortable
HEENT: Normocephalic, Atraumatic and Moist Mucous Membranes
Respiratory: Clear to Auscultation and Non Labored Respirations; Negative Wheezes, Rales or Rhonchi
Cardiac: Regular Rhythm, S1/S2 and Bradycardic (Mild); Negative Murmur, Rub or Gallop
GI: Soft, Nontender, Nondistended and Normal Bowel Sounds
Musculoskeletal: No Clubbing, No Cyanosis and No Edema
Skin: Warm, Dry and Other (Will approximated surgical incision, left neck); Negative Rash
Neuro: AO x 3 and Other (Right-sided tongue deviation; no other FND or cranial nerve deficits); Negative Tremors
Data Reviewed
-
CT Scan: Report Reviewed by me, Discussed with Patient and Discussed with Family
Labs: Labs Reviewed by me and Discussed with Patient
--- NOTE | 2024-03-21 11:29 | CM ---
notified that pt's wanted home care services start date to be on Saturday, not tomorrow. I contacted Mrs. Hernandez and explained that [facility] will call to schedule the start date after Chandra returns home. She was happy with this and will
expect a call early next week to schedule.
Plan: Discharge to home with [facility] services. will provide transportation home.
Deb
--- NOTE | 2024-03-21 12:00 | PTCARENOTE ---
Assessment unchanged. Pt remains OOB in chair, call [facility] in reach. at bedside.
--- NOTE | 2024-03-21 15:00 | PTCARENOTE ---
Assessment unchanged. Pt assisted back to bed from chair. Call [facility] in reach, no complaints at this time.
--- NOTE | 2024-03-21 20:00 | PTCARENOTE ---
Patient received in bed. NIH 1- done in tandem with off going RN. Mild slurring noted, tongue deviated to right. SALAZAR, equal strength throughout. Sinus Osvaldo on monitor, +1 lower extremity edema noted. Bilateral DPs and PTs present by doppler.
Lungs diminished bibasilar, pulse ox 94% on room air. Abdomen round with hypoactive bowel sounds. Tolerating diet. Right groin dressing clean dry and intact. Left neck incision approximated, mild ecchymosis noted. #18 g in left FA and #20 g in
RFA both flushed and patent. Plan of care discussed, call [facility] within reach
[2024-03-21] MEDS: ZETIA 10 MG PO (21:56)
[2024-03-22] VITALS (11 sets, daily range): BP systolic 109–135; BP diastolic 48–57
[2024-03-22] MEDS: HEPARIN SC (00:07)
--- NOTE | 2024-03-22 00:13 | PTCARENOTE ---
Patient reassessed, asleep, awakens easily, pulses remain unchanged. Refused SC heparin. education provided. No other changes in assignment
[2024-03-22] MEDS: TYLENOL 650 MG PO (05:53)
--- NOTE | 2024-03-22 07:46 | W.PN.INTV ---
Today's Communication / Plan
Recommendations
Increase activity
Neurovascular checks
Transfer out of ICU-call pulmonary if respiratory issues arise
Assessment
-
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
management 03/20/2024.
Acute aphasia-differential partial complex seizure versus prolonged TIA with severe carotid stenosis
Status post left transcarotid artery revascularization with flow reversal embolic protection all
History of right CEA
Obstructive sleep apnea suspected
Presumed partial complex seizure
Conditions present prior to admission:
Hypertension.
Hyperlipidemia.
CAD/CABG.
Right ICA stent.
PAF.
Former smoker
Inguinal hernia. Bilateral cataract surgery.
Plan
Neurovascularly intact
Supplemental oxygen as needed-attempt to wean to room air
Incentive spirometry
Aspiration precautions
Neuro and vascular checks per protocol
Vascular surgery following-correspondence and operative notes reviewed
DVT prophylaxis
Early nutrition
Early mobilization
The patient could be downgraded telemetry or discharged-supervisor cartography will sign off-please call pulmonary if respiratory issues arise
Patient with some signs and symptoms of obstructive sleep apnea-recommend outpatient evaluation/home sleep study
Reviewed the patient's pertinent medical records including radiographs, microbiology, laboratory evaluations, and discussion with primary team, consultants, pharmacy, nutrition, physical therapy, case management, charge nurse, critical care
nursing, and respiratory therapy.
Diagnostic data:
Chest x-ray 08/22/2023-moderate partially loculated left pleural effusion
CT abdomen and pelvis 03/17/2024-fusiform aneurysmal dilation infrarenal abdominal aortic, 3.9 cm left renal cyst, sigmoid diverticulosis
Brain MRI 03/16/2024-no MRI evidence for acute infarct or intracranial hemorrhage, 4.5 mm chronic lacunar infarct body of right caudate nucleus, 3.8 mm chronic white matter infarct posterior left parietal lobe
Echocardiogram 03/16/2024-EF 55-60%, no valvular disease
Subjective Dataa
Subjective Data
Date of Service:
Date of Service: March 22, 2024
Chief Complaint: Loss Prevention Officer Follow Up and Pulmonary Follow Up
Subjective:
No complaints of shortness of breath, chest pain, weakness, productive cough
Review of Systems
General: Other (Per HPI)
Objective Data
Data Reviewed
Vital Signs / I&O / Oxygen:
Vital Signs
Temp Pulse Resp BP Pulse Ox
98.0 F 54 17 132/50 98
03/22/24 07:00 03/22/24 03:00 03/22/24 03:00 03/22/24 02:00 03/22/24 03:00
Intake and Output
03/21/24 03/22/24 03/23/24
06:59 06:59 06:59
Intake Total 1500 / 1500 360 / 360
Output Total 500 / 500 650 / 650
Balance 1000 / 1000 -290 / -290
SaO2 98
Nasal Cannula flow liters per 4
minute
Physical Exam
General: Respiratory Distress (n) and Comfortable
HEENT: Anicteric and Moist Mucous Membranes
Cardiovascular: Regular Rhythm and Murmur
Respiratory: Wheeze (n), Non-Labored Respirations, Accessory Resp Muscle Use (nn) and Stridor (n)
GI: Soft, Non Distended and Non Tender
Neurology: Awake, Alert and No Motor Deficits
Skin: Warm, Good Color, Cyanosis (n), Jaundice (n) and Rash
Labs/Micro/Reports
Lab Data
03/21/24 04:08
03/21/24 04:08
[2024-03-22] MEDS: PERIDEX 0.12% ORAL RINSE 15 ML PO (08:10)
[2024-03-22] MEDS: PROCARDIA XL (EXTENDED RELEASE) 90 MG PO (08:10)
[2024-03-22] MEDS: XANAX 0.25 MG PO (08:11)
[2024-03-22] MEDS: PLAVIX 75 MG PO (08:11)
[2024-03-22] MEDS: HEPARIN 5000 UNITS SC (08:12)
[2024-03-22] MEDS: TOBRADEX EYE DROPS 1 DROP BOTH EYES (08:12)
[2024-03-22] MEDS: CRESTOR 40 MG PO (08:12)
[2024-03-22] MEDS: KEPPRA 500 MG PO (08:12)
[2024-03-22] MEDS: ASPIR LOW (ENTERIC COATED) 81 MG PO (08:12)
--- NOTE | 2024-03-22 08:29 | PTCARENOTE ---
0700 patient seen in bed. No change in Neuro and NIH score noted. BP 134/53; SB 52; 94RA . Denies pain left neck and Rt groin incisions intact
--- NOTE | 2024-03-22 09:49 | W.PN.HOSP.TC ---
Today's Communication/Plan
-
Discharge
Assessment / Plan
Assessment / Plan
#Presumed complex partial seizure
#Acute aphasia
-Suspect that this was a complex partial seizure, lasted near 24 hours and broke spontaneously
-CTH negative; CTA with signs of proximal left ICA stenosis of 66%; MRI yesterday negative
-EEG yesterday showed bihemispheric cortical dysfunction, single right frontal sharp
-Was started on Keppra regimen, as needed Ativan; no recurrent symptoms
-Continue with Keppra 500 mg twice daily and neurochecks
#Left ICA stenosis
#Status post left ICA stent -- POD #1
-CTA on arrival showed left ICA stenosis of near 66%
-Initial concern for CVA within this distribution though MRI negative
-Medications include DAPT and high intensity statin
-Carotid US and other surgical workup ordered by vascular team
-Successfully placed left carotid stent on 03/20
#S/P right CEA
-Medications include DAPT and statin
-CTA in the ED showed signs of left ICA stenosis
#AAA
-CTA abdomen pelvis here showed fairly large AAA with dimensions 5.3 x 5.8 cm
-Vascular surgery following, will likely need intervention such as EVAR
-Intervention will likely occur in the outpatient setting
-Will continue with DAPT and statin
#CAD s/p CABG
-Home medications include DAPT with Plavix and aspirin, beta-jagdeep, high intensity statin
-Last echocardiogram showed preservation of systolic function
-No signs of ACS on this hospitalization
#Hypertension
-No known history of hypertensive systemic disease
-Home medications include nifedipine, metoprolol tartrate; also on Lasix
# Hyperlipidemia
-Does have significant ASCVD history with CAD and CABG, right ICA stent
-Home medications include high intensity statin, gemfibrozil, ezetimibe
-Holding gemfibrozil currently due to increased risks of rhabdomyolysis with other meds
#H/O atrial fibrillation
-Transient event that occurred following his coronary artery bypass graft
-He is not on any longstanding anticoagulant such as warfarin or DOAC
DVT prophylaxis: Subcutaneous heparin
Diet: Low-cholesterol
CODE STATUS: Full code
Anticipated Discharge: Today
Subjective/Interval History
-
Date of Service: March 22, 2024
Seen and examined at bedside. No acute events overnight. AFVSS this morning, heart rate in mid 50s per minute
States he feels well and is ready to leave the hospital. Surgical site well-approximated, no signs of purulence or superimposed infection.
Denies all acute complaints including chest pain, shortness of breath, fevers or chills, paresthesias or weakness, GI upset, urinary issues, bleeding or bruising
Objective Data
-
Vital Signs:
Vital Signs
Temp Pulse Resp BP Pulse Ox
98.0 F 52 17 134/53 98
03/22/24 07:00 03/22/24 08:10 03/22/24 03:00 03/22/24 08:10 03/22/24 03:00
I&O
03/21/24 03/22/24 03/23/24
06:59 06:59 06:59
Intake Total 1500 / 1500 360 / 360
Output Total 500 / 500 650 / 650
Balance 1000 / 1000 -290 / -290
Review of Systems
-
History Source: Patient
All other systems: Reviewed and negative
Physical Exam
-
General: Well Nourished, No Apparent Distress and Comfortable
HEENT: Normocephalic, Atraumatic and Moist Mucous Membranes
Respiratory: Clear to Auscultation and Non Labored Respirations; Negative Wheezes, Rales or Rhonchi
Cardiac: Regular Rhythm and S1/S2; Negative Murmur, Rub or Gallop
GI: Soft, Nontender, Nondistended and Normal Bowel Sounds
Musculoskeletal: No Clubbing, No Cyanosis and No Edema
Skin: Warm, Dry and Other (Well-approximated surgical incision of left neck, no purulence or erythema); Negative Rash
Neuro: AO x 3, Nonfocal/Grossly Intact and Central Nerve's Intact
Psych: Calm
[2024-03-22] MEDS: LOPRESSOR 25 MG PO (10:32)
--- NOTE | 2024-03-22 11:10 | PTCARENOTE ---
Patient will be d/c home. went over of all /c instructions with patient an his . All questions been answer. pt and his express the full understanding of all d/c instructions.
--- NOTE | 2024-03-22 11:45 | W.DCSUMMARY ---
Discharge Summary
Discharge Data
Date of Admission: 03/15/24
Date of Discharge: 03/22/24
-
Pending Results: No
Hospital Course
83-year-old male with CAD s/p CABG, s/p distant right CEA, 8/oh CVA, AAA, HTN, HLD that presented with expressive aphasia and inability to follow commands. Stroke workup negative for acute findings on MRI, did show signs of old strokes. EEG with
abnormal findings with single frontal sharp waves. Started on Keppra 500 mg twice daily empirically. CTA on arrival showed near 70% stenosis of the left ICA. Vascular surgery was consulted that performed duplex ultrasound that confirmed >70%
stenosis. Decision was made to proceed with left ICA stent placement which occurred on 03/20/2024. Was monitored in the ICU following without any abnormal findings. PT/OT recommended home therapy. Stable for discharge on 03/22/2024. Will
continue on DAPT and statin therapy. To follow-up with vascular surgery and primary care after discharge.
Discharge Plan
-
Patient Disposition: Home (Routine Discharge)
Discharge Diagnosis/Procedures: LEFT trans-carotid artery revascularization with flow reversal embolic protection
Complex partial seizures
Condition: Good
Diet: Low Cholesterol and No added salt
Activity: No strenuous activity
Driving Restrictions: Not until seen by your Dr
Bathing Restrictions: OK to Shower
Blood Work: None
Others Tests: None
Activity Restrictions/Additional Instructions:
If you experience severe constant headache, weakness to an arm or leg, change in vision, trouble speaking or any stroke-like symptom, call 911 immediately
If you experience swelling, increased bruising, drainage from neck site, or fever, please call the office
Instructions: Sleep apnea in adults, Seizures
Stand Alone Forms: DC Instr - Vascular OR
Referrals:
Paresh Perry MD [Family Provider] -
Nay Trujillo, [Active] - in two to three weeks
Terrence Martinez MD [Active] - in two to four weeks (Dr. Martinez or nurse practitioner-needs home polysomnogram)
Sunni Crawley CRNP [Specified Professional Personl] - 04/03/24 10:45 am
Additional Discharge Medication Instructions: Start taking levetiracetam (Keppra) 500 mg twice daily
Prescriptions:
New
levetiracetam 500 mg Tablet
500 mg PO BID 30 Days Qty: 60 0RF
Continued
clopidogrel 75 MG tablet
75 mg PO DAILY
alprazolam 0.25 MG tablet
0.25 mg PO TID
gemfibrozil 600 MG tablet
600 mg PO BID
ezetimibe 10 MG tablet
10 mg PO HS
rosuvastatin [Crestor] 40 MG tablet
40 mg PO BID
aspirin 81 mg Tablet,Delayed Release (Dr/Ec)
81 mg PO DAILY
nifedipine 90 mg Tablet Extended Release 24hr
90 mg PO DAILY
metoprolol tartrate 25 mg Tablet
25 mg PO BID
furosemide [Lasix] 20 mg Tablet
20 mg PO MOWEFR
tobramycin-dexamethasone 0.3-0.1 % drops,suspension
1 drp BOTH EYES TID
Discharge Orders:
Discharge Patient (As Directed); Ordered 03/22/24
Ordered By: Bao Silverio
Discharge Date and Time
Print Language: MALAGASY
== END 2024-03-22 11:45 | disposition home or self-care (01) | DRG 35 ==
LOC: ICU 17:37
PROVIDERS: Nurse Practitioner; Surgery Vascular Surgery; ADMITTING PHYSICIAN Internal Medicine; ATTENDING PHYSICIAN Internal Medicine; CONSULT PHYSICIAN Internal Medicine Critical Care Medicine; CONSULT PHYSICIAN Psychiatry & Neurology Neurology; EMERGENCY PHYSICIAN Emergency Medicine; FAMILY PHYSICIAN Internal Medicine; OTHER PHYSICIAN Surgery Vascular Surgery
PROC: 037L3DZ Dilation of Left Internal Carotid Artery with Intraluminal Device, Percutaneous Approach (ICD-10-PCS; 2024-03-20)
PROC: X2AJ336 Cerebral Embolic Filtration, Extracorporeal Flow Reversal Circuit from Left Common Carotid Artery, Percutaneous Approach, New Technology Group 6 (ICD-10-PCS; 2024-03-20)
DX: G40.209 Localization-related (focal) (partial) symptomatic epilepsy and epileptic syndromes with complex partial seizures, not intractable, without status epilepticus (principal); I16.1 Hypertensive emergency; R47.01 Aphasia; J90 Pleural effusion, not elsewhere classified; Z87.891 Personal history of nicotine dependence; I65.22 Occlusion and stenosis of left carotid artery; I71.40 Abdominal aortic aneurysm, without rupture, unspecified; E87.6 Hypokalemia; Z86.73 Personal history of transient ischemic attack (TIA), and cerebral infarction without residual deficits; Z79.82 Long term (current) use of aspirin; Z95.1 Presence of aortocoronary bypass graft; I48.0 Paroxysmal atrial fibrillation; I25.10 Atherosclerotic heart disease of native coronary artery without angina pectoris; I10 Essential (primary) hypertension; G47.33 Obstructive sleep apnea (adult) (pediatric)
CPT/HCPCS: 37215; 70450; 70496; 70498; 70551; 71045; 74174; 80048; 80053; 80061; 81003; 82962; 83036; 83735; 84100; 84484; 85025; 85027; 85610; 85730; 86850; 86900; 86901; 92523; 92610; 93005; 93306; 93880; 95816; 95938; 95941; 95955; 97116; 97163; 97167; 97530; 97535; 99291; C1725; C1769; C1876; C1884; C1894; Q9967

== ENCOUNTER 2024-04-03 11:33 | Emergency (ER) | payer MEDICARE, BC, SELFPAY ==
[2024-04-03 11:36] VITALS: BP 146/69
--- NOTE | 2024-04-03 12:16 | ED.GENMED ---
History of Present Illness
<Amanda Boggs PA-C - Last Filed: 04/03/24 18:22>
General
Chief Complaint: Headache
Source: patient
Exam Limitations: none
Time Seen by Provider: 04/03/24 12:15
Nursing documentation reviewed up to this point in time: agreed with
History of Present Illness
History of Present Illness:
83-year-old male with past medical history of hypertension, hyperlipidemia, AAA, carotid stenosis presents to the emergency department today with left-sided headache. Patient reports that this has been going on intermittently for the past 2 weeks
and states that this started after he had a carotid revascularization procedure with balloon angioplasty on 03/20/2024. Patient states that the pain is intermittent and Tylenol does not usually help it. He states that it became severe yesterday.
Patient states that currently he is comfortable he states that now just has a mild ache. Patient denies any visual changes in the left eye. Patient denies any jaw pain. Patient denies any nausea or vomiting.patient does have residual slight
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 Patient denies any chest pain or shortness of breath. Patient had a follow-up appointment with Dr. Morales in the office today and was sent to the emergency department
due to left-sided headaches, he wanted to get a CT scan to evaluate further.
Past History
<Amanda Boggs PA-C - Last Filed: 04/03/24 18:22>
Past History
ED Past Medical History: CAD, HTN, Hypercholesterolemia and Other (Chylothorax)
ED Past Surgical History: Other (carotid artery surgery, CABG)
Social History
Tobacco: Non-smoker
Alcohol: None
Drug: None
Personal:
Living: with family
Review of Systems
<Amanda Boggs PA-C - Last Filed: 04/03/24 18:22>
Review of Systems
All Other Systems: ROS reviewed and negative except as documented in HPI and ROS
Phy Exam
<Amanda Boggs PA-C - Last Filed: 04/03/24 18:22>
Physical Exam
Physical Exam:
General: Patient is well appearing and in no acute distress; non-toxic
Skin: Warm and dry, intact surgical incision site noted to left anterior neck.
Head: Normocephalic, atraumatic
Eyes: Sclera non-icteric. EOMs intact. PERRLA.
Cardiac: Regular rate and rhythm, no murmurs
Peripheral Vascular: No lower extremity swelling or edema, no temporal artery tenderness
Pulm: Normal respiratory effort
Musculoskeletal: 5 out of 5 strength bilateral upper extremities.
Neuro: CN II-XII intact, no focal neurologic deficits. Normal finger-nose, heel phan testing. Slight tongue deviation noted to the right (this is chronic finding according to vascular team)
Psychiatric: Appropriate mood and affect.
Course
<Amanda Boggs PA-C - Last Filed: 04/03/24 18:22>
Orders/Labs/Results
Orders:
Orders
04/03/24 12:44
CT Head W/o Iv Contrast Urgent
Comment:
Reason For Exam: left sided headache
Vital Signs
Initial and Last Documented VS:
Initial Vital Signs
Temp Pulse Resp BP Pulse Ox
98.2 F 74 16 146/69 98
04/03/24 11:36 04/03/24 11:36 04/03/24 11:36 04/03/24 11:36 04/03/24 11:36
Last Documented Vital Signs
Temp Pulse Resp BP Pulse Ox
98.2 F 74 16 146/69 98
04/03/24 11:36 04/03/24 11:36 04/03/24 11:36 04/03/24 11:36 04/03/24 11:36
<Ross Angeles DO - Last Filed: 04/03/24 13:13>
Orders/Labs/Results
Orders:
Orders
04/03/24 12:44
CT Head W/o Iv Contrast Urgent
Comment:
Reason For Exam: left sided headache
Vital Signs
Initial and Last Documented VS:
Initial Vital Signs
Temp Pulse Resp BP Pulse Ox
98.2 F 74 16 146/69 98
04/03/24 11:36 04/03/24 11:36 04/03/24 11:36 04/03/24 11:36 04/03/24 11:36
Last Documented Vital Signs
Temp Pulse Resp BP Pulse Ox
98.2 F 74 16 146/69 98
04/03/24 11:36 04/03/24 11:36 04/03/24 11:36 04/03/24 11:36 04/03/24 11:36
<Amanda Boggs PA-C - Last Filed: 04/03/24 18:22>
MDM/Problems Addressed
Differential Diagnosis Includes:
Differentials include tension headache, migraine headache, cluster headache, epidural hematoma, intraparenchymal hemorrhage, subarachnoid hemorrhage, temporal arteritis
MDM/Problems Addressed:
83-year-old male with a past medical history of significant carotid stenosis presents emergency department today with persistent headaches following his carotid revascularization procedure done on March 20. Patient was being seen in the office
today with Dr. Morales and was sent to the emergency department for CAT scan considering his persistent headaches. His CAT scan of the head was negative for any bleeding. Patient feels well is requesting to be discharged. Patient will follow-up
with Dr. Morales. Patient stable for discharge.
Chronic conditions affecting care:
AAA, atherosclerosis, hypertension, hyperlipidemia
<Amanda Boggs PA-C - Last Filed: 04/03/24 18:22>
*Pulse Oximetry
Patient hypoxic: no
*Critical Care Note
Total Time (30-74mins, 75-104mins- exclusive of procedures): Not Applicable
Data Reviewed
Review of Other/Old Records Reveals: Records (Reviewed operative report from carotid revascularization procedure on March 20, reviewed hospital discharge summary on 03/22/2024, reviewed ER physician documentation 03/15/2024)
Source: patient and records
Prescriptions/Medications Considered But Not Given:
N/A
Further Testing Considered But Not Given:
N/A
<Amanda Boggs PA-C - Last Filed: 04/03/24 18:22>
Patient Management
Escalation/DeEscalation of care consider admission/obs:
Admit not indicated, patient stable for discharge
ED Attending Note
<Amanda Boggs PA-C - Last Filed: 04/03/24 18:22>
-
Portions of this chart may have been created with voice recognition software.� Occasional wrong word or��sound alike� substitutions may have occurred due to the inherent limitations of voice recognition software.
<Ross Angeles DO - Last Filed: 04/03/24 13:13>
ED Attending Note
Patient seen and examined by attending physician: Yes
I performed the substantive portion of visit, reviewed & personally made and approve the management plan that is documented in note by myself or SARAH.: Yes
I performed a history and physical exam of patient and discussed management with resident, I reviewed resident's note and agree with documented findings and plan of care.: Yes
ED Attending Note:
I evaluated the patient at bedside. The patient has been having left-sided headache intermittently since the CEA. He took Advil yesterday. He feels improved today however vascular surgery wanted patient to come in here for imaging. Highly doubt
temporal arteritis based on history and exam.
Discharge Plan
Departure
Patient Disposition: Home (Routine Discharge)
Date of Disposition: 04/03/24
Time of Disposition: 14:01
Patient with high blood pressure during this ER visit?: Yes
Condition: Good
Discharge Problem:
Headache
Instructions: Headache, Adult (DC), BLOOD PRESSURE
Prescriptions:
No Action
clopidogrel 75 MG tablet
75 mg PO DAILY
alprazolam 0.25 MG tablet
0.25 mg PO TID
gemfibrozil 600 MG tablet
600 mg PO BID
ezetimibe 10 MG tablet
10 mg PO HS
rosuvastatin [Crestor] 40 MG tablet
40 mg PO BID
aspirin 81 mg Tablet,Delayed Release (Dr/Ec)
81 mg PO DAILY
nifedipine 90 mg Tablet Extended Release 24hr
90 mg PO DAILY
metoprolol tartrate 25 mg Tablet
25 mg PO BID
furosemide [Lasix] 20 mg Tablet
20 mg PO MOWEFR
tobramycin-dexamethasone 0.3-0.1 % drops,suspension
1 drp BOTH EYES TID
levetiracetam 500 mg Tablet
500 mg PO BID 30 Days Qty: 60 0RF
Referrals:
Paresh Perry MD [Family Provider] -
Activity Restrictions/Additional Instructions:
Please continue your daily medications.
You can continue to take Tylenol as needed for your headache.
Please follow-up with Dr. Morales as needed. Please return to the emergency department should you develop chest pain, shortness of breath, dizziness, lightheadedness, syncopal episodes, one-sided weakness, difficulty speaking, or any other signs or
symptoms concerning to you.
Interventions
Interventions:
*Risk Screen - Suicide Last Done: 04/03/24 11:36
*General Assessment Last Done: 04/03/24 11:36
*Neglect/Abuse Screening Last Done: 04/03/24 11:36
*Nursing Disposition Last Done: 04/03/24 14:23
ED- Neurological Assessment Last Done: 04/03/24 14:23
Discharge Date and Time
Discharge Date/Time: 04/03/24 14:15
Print Language: ALBANIAN
== END 2024-04-03 14:15 | disposition home or self-care (01) ==
LOC: EMR 11:33
PROVIDERS: EMERGENCY PHYSICIAN Emergency Medicine; FAMILY PHYSICIAN Internal Medicine
DX: R51.9 Headache, unspecified (principal); I25.10 Atherosclerotic heart disease of native coronary artery without angina pectoris; E78.00 Pure hypercholesterolemia, unspecified; I10 Essential (primary) hypertension; I69.898 Other sequelae of other cerebrovascular disease; Z95.1 Presence of aortocoronary bypass graft; Z86.79 Personal history of other diseases of the circulatory system
CPT/HCPCS: 99284; 70450

== ENCOUNTER 2024-04-06 22:00 | Inpatient (IN) | payer MEDICARE, BC, SELFPAY ==
[2024-04-06] VITALS (9 sets, daily range): BP systolic 164–204; BP diastolic 79–164; PULSE 89–96; BMI 24.0
--- NOTE | 2024-04-06 18:37 | ED.CVA ---
History of Present Illness
General
Chief Complaint: CVA/TIA Symptoms
Time Seen by Provider: 04/06/24 18:35
Onset of Stroke Symptoms
Onset of symptoms known: No
Time pt last seen normal is known: Yes
Date last time pt seen normal: 04/06/24
Time last time pt seen normal: 15:30
History of Present Illness
History of Present Illness:
Patient is a 83-year-old male with history of CAD status post CABG, right carotid endarterectomy, AAA, hypertension, hyperlipidemia, recent admission in March for expressive aphasia and inability to follow commands and when he was admitted no
signs of stroke but did have near stenosis of the left ICA and had a stent placed on the presenting to the emergency department as a prehospital stroke alert. Patient's last known normal was 3:30 PM. He had just finished eating lunch with his
when he had sudden onset of aphasia and inability to follow any commands. Per medics his blood pressure was notable for 177/56. Blood sugar was 99. He is holding his head and initially told the family that he was having a headache.
Otherwise history is limited secondary to patient's aphasia.
Past History
Past History
ED Past Medical History: CAD, HTN, Hypercholesterolemia and Other (Chylothorax)
ED Past Surgical History: Other (carotid artery surgery, CABG)
Social History
Tobacco: Non-smoker
Alcohol: None
Drug: None
Personal:
Living: with family
Phy Exam
Physical Exam
Physical Exam:
GENERAL: Holding hand to his head
HEENT: normocephalic, extraocular movements intact, moist oral mucosa
NECK: normal inspection
RESPIRATORY: no respiratory distress, clear to auscultation bilaterally
CARDIOVASCULAR: regular rate and rhythm
ABDOMEN/: soft, non-distended, non-tender to palpation, no rebound or guarding
EXTREMITIES: non-tender, no edema/swelling
NEUROLOGIC: Significantly limited secondary to patient's aphasia but pupils equal and reactive, blink to threat, no facial droop, no drift in upper or lower extremities, sensation intact in upper and lower extremities
SKIN: warm
Scores
NIH Stroke Score
Level of Consciousness: 0 - Alert
LOC Questions: 2-Neither correct
LOC Commands: 0-Performs both correctly
Best Horizontal Gaze: 0-Normal
Visual Sher[place]: 0=Normal, no visual loss
Facial Palsy: 0=Normal, symmetrical
Motor - Right Arm: 0=No drift 10 seconds
Motor - Left Arm: 0=No drift 10 seconds
Motor - Right Le-No drift 5 seconds
Motor - Left Le-No drift 5 seconds
Limb Ataxia: UN-Amputation/jointfusion
Sensation: 0-Normal
Best Language: 2-Severe aphasia
Dysarthria: 1-Mild slurring
Extinction and Inattention: 0-No abnormality
Total Score:: 5
Course
Orders/Labs/Results
Orders:
Orders
04/06/24 18:35
Electrocardiogram (*1) Urgent
Reason for Study: TIA/Stroke
CT HEAD STROKE ALERT W/o Cont Stat
Comment:
Reason For Exam: aphasia
CT HEAD/NECK ANG STROKE ALERT Stat
Comment:
Reason For Exam: aphasia
EKG- Treatment ONCE
04/06/24 18:39
Complete Blood Count/With Diff Urgent
Comprehensive Metabolic Panel Urgent
Troponin I Urgent
04/06/24 18:57
Levetiracetam Injectable [Keppra] 1,000 mg IV NOW STA
Prochlorperazine [Compazine] 10 mg IV NOW STA
Abnormal Lab Results
04/06/24 04/06/24
18:39 18:53
RBC 3.90 L 10^6/uL
(4.70-6.10)
Hgb 11.7 L g/dL
(13.0-18.0)
Hct 33.2 L %
(39.0-52.0)
Absolute Lymphs (auto) 0.6 L 10^3/uL
(1.2-3.4)
Neutrophils % 79.1 H %
(42.2-75.2)
Lymphocytes % 9.6 L %
(20.5-51.1)
POC Glucose 110 H mg/dl
(70-99)
04/06/24 18:39
04/06/24 18:39
Vital Signs
Initial and Last Documented VS:
Initial Vital Signs
Temp Pulse Resp BP Pulse Ox
98.3 F 88 18 178/83 97
04/06/24 18:40 04/06/24 18:40 04/06/24 18:40 04/06/24 18:40 04/06/24 18:40
Last Documented Vital Signs
Temp Pulse Resp BP Pulse Ox
98.3 F 85 27 165/83 97
04/06/24 18:40 04/06/24 19:15 04/06/24 19:15 04/06/24 19:00 04/06/24 18:40
MDM/Problems Addressed
Differential Diagnosis Includes:
Patient is a 83-year-old man with history of prior CVA, recent admission in March for aphasia and was found to have stenosis of the left ICA and a stent was placed, AAA, hypertension, hyperlipidemia presenting to the emergency department as a
prehospital stroke alert. Vitals here were notable for blood pressure with systolic in the 150s. Exam was difficult secondary to patient's aphasia but no focal deficits. NIH is difficult to obtain given patient's cooperation. It does seem that
when patient was seen here last time this was the same story. Given the concern for the headache was hypertension concern for spontaneous hemorrhage or complex migraine. Based on prior history it appears that he also had an EEG with abnormal
findings and was started on Keppra so could be seizure. Will proceed with stroke alert CT scan as well as a CTA.
*Critical Care Note
Total Time (30-74mins, 75-104mins- exclusive of procedures): Not Applicable
Update Note
Update Note:
Received a call from neurology regarding the stroke alert. In agreement with holding TNK given the only deficit is the aphasia. Could be complex migraine or the seizure. Recommending loading 1 g Keppra IV as well as given Compazine.
CT scan of the head negative for acute infarct or hemorrhage.
On reevaluations patient aphasia has slightly improved and this was before the medications were given. Blood work otherwise unremarkable. CTA negative. Discussed with hospitalist who accepted patient for admission
ED Attending Note
-
Portions of this chart may have been created with voice recognition software.� Occasional wrong word or��sound alike� substitutions may have occurred due to the inherent limitations of voice recognition software.
Discharge Plan
Departure
Patient Disposition: Admit
Date of Disposition: 04/06/24
Time of Disposition: 19:30
Presentation/result/management discussed w/ accepting MD/DO: Hospitalist
Discharge Problem:
Aphasia
Prescriptions:
No Action
clopidogrel 75 MG tablet
75 mg PO DAILY
alprazolam 0.25 MG tablet
0.25 mg PO TID
gemfibrozil 600 MG tablet
600 mg PO BID
ezetimibe 10 MG tablet
10 mg PO HS
rosuvastatin [Crestor] 40 MG tablet
40 mg PO BID
aspirin 81 mg Tablet,Delayed Release (Dr/Ec)
81 mg PO DAILY
nifedipine 90 mg Tablet Extended Release 24hr
90 mg PO DAILY
metoprolol tartrate 25 mg Tablet
25 mg PO BID
furosemide [Lasix] 20 mg Tablet
20 mg PO MOWEFR
tobramycin-dexamethasone 0.3-0.1 % drops,suspension
1 drp BOTH EYES TID
levetiracetam 500 mg Tablet
500 mg PO BID 30 Days Qty: 60 0RF
Interventions
Interventions:
*Risk Screen - Suicide Last Done: 04/06/24 18:40
*General Assessment Last Done: 04/06/24 18:40
*Neglect/Abuse Screening Last Done: 04/06/24 18:40
ED- Pulmonary Assessment Last Done: 04/06/24 19:16
ED- Neurological Assessment Last Done: 04/06/24 19:16
ED- Cardiac Assessment Last Done: 04/06/24 19:16
ED Swallowing Screen Last Done: 04/06/24 19:16
Discharge Date and Time
Print Language: WELSH
[2024-04-06 18:47] LABS: % Basophils 0.7 % (0-2); % Eosinophils 1.5 % (0-6); % Immature Granulocytes 0.3 % (0-0.5); % Lymphocytes 9.6 % (20.5-51.1); % Monocytes 8.8 % (1.7-9.3); % Neutrophils 79.1 % (42.2-75.2); Absolute Basophils 0.1 10^3/uL (0-0.2); Absolute Eosinophils 0.1 10^3/uL (0-0.7); Absolute Lymphocytes 0.6 10^3/uL (1.2-3.4); Absolute Monocytes 0.6 10^3/uL (0.1-0.6); Absolute Neutrophils 5.3 10^3/uL (1.4-6.5); Hematocrit 33.2 % (39.0-52.0); Hemoglobin 11.7 g/dL (13.0-18.0); Mean Corp Hgb Conc. 35.2 g/dL (33.0-37.0); Mean Corpuscular Volume 85.1 fL (80.0-94.0); Mean Platelet Volume 10.4 fL (7.4-10.4); Nucleated Red Blood Cells % 0 % (-); Platelet Count 149 10^3/uL (130-400); Red Cell Dist. Width 13.6 % (11.5-14.5); White Blood Cell Count 6.7 10^3/uL (4.8-10.8)
[2024-04-06] MEDS: KEPPRA 1000 MG IV (19:01)
[2024-04-06] MEDS: COMPAZINE 10 MG IV (19:01)
[2024-04-06 19:03] LABS: ALT (SGPT) 19 U/L (0-50); AST (SGOT) 22 U/L (17-59); Albumin 3.8 g/dl (3.5-5.0); Alkaline Phosphatase 51 U/L (38-126); Blood Urea Nitrogen 15 mg/dl (9-20); Calcium 8.7 mg/dl (8.4-10.2); Carbon Dioxide 25 mmol/L (22-30); Glucose 93 mg/dl (70-99); Total Bilirubin 0.5 mg/dl (0.2-1.3); Total Protein 6.3 g/dl (6.3-8.2); eGFR > 60.00
[2024-04-06 19:11] LABS: Glucose - Point of Care 110 mg/dl (70-99)
[2024-04-06 19:13] LABS: Troponin I < 0.012 ng/ml
[2024-04-06 19:36] LABS: Chloride 108 mmol/L (98-107); Potassium 3.6 mmol/L (3.5-5.1); Sodium 143 mmol/L (135-145)
--- NOTE | 2024-04-06 21:34 | HPS.HSE ---
Family Physician
-
Family Physician: Paresh Perry
Chief Complaint
-
Speech issues, Headache
History of Present Illness
Patient is an 83y M with PMH significant for ASCVD, hypertension, AAA and recent admission for aphasia who presents to ED complaining of headache and aphasia. History obtained primarily from at the bedside due to patient's communication
difficulty. Patient was initially admitted here to on 03/15 with similar symptoms. MRI showed no evidence of acute stroke; however, patient was noted to have significant L carotid stenosis. He underwent L carotid angio / stenting on 03/20/24.
He was discharged to home in improved condition.
Patient complained of L sided headache since discharge. He was seen by Vascular Surgery in the office on 04/03 and referred to the ED for evaluation / repeat imaging. CT at that time was unremarkable, patient felt improved and he was discharged to
home.
states that patient was doing well until about 3:30 PM today when he again began to complain of headache and was noted to have difficulty producing speech. Patient speaks some words that are not meaningful / appropriate for conversation. No
slurred speech / dysarthria. No focal weakness, strength issues, movement issues during any of his prior events.
In the ED, patient continues to have aphasia. Follows some commands, but not others. Appears to have expressive and receptive components.
No med changes since recent admission. No fevers / chills or other new complaints.
Patient was started on Keppra during his recent admission due to concern for atypical seizure activity.
Medical History
Past Medical History
Past Medical History: Reports Other
Additional Past Medical History:
ASCVD
AAA
Hypertension
Skin Cancer
Past Surgical History: Reports Other
Additional Past Surgical History:
Left Carotid Angio / Stent (03/20/24)
R CEA
CABG
Inguinal hernia repair-bilateral
Cataract extraction
Social History
Tobacco: Former Smoker
Personal:
Family History
Family History: Not pertinent
Allergies / Home Medications
Allergies reflects when Allergies were last updated in [facility].
Home Medications with original date entered in [facility]
Allergy/Medication List:
Allergies
Allergy/AdvReac Type Severity Reaction Status Date / Time
No Known Allergies Allergy Verified 04/03/24 11:36
Home Medications
alprazolam 0.25 mg tablet 0.25 mg PO TIDPRN PRN anxiety 12/11/12
clopidogrel 75 mg tablet 75 mg PO DAILY 12/11/12
ezetimibe 10 mg tablet 10 mg PO HS 12/11/12
gemfibrozil 600 mg tablet 600 mg PO BID 12/11/12
rosuvastatin 40 mg tablet (Crestor) 40 mg PO BID 12/11/12
aspirin 81 mg tablet,delayed release 81 mg PO DAILY 07/01/23
metoprolol tartrate 25 mg tablet 25 mg PO BID 07/01/23
nifedipine 90 mg tablet,extended release 24 hr 90 mg PO DAILY 07/01/23
furosemide 20 mg tablet (Lasix) 20 mg PO MOWEFR 03/15/24
tobramycin 0.3 %-dexamethasone 0.1 % eye drops,suspension 1 drp BOTH EYES TIDPRN PRN eye issues 03/15/24
levetiracetam 500 mg tablet 500 mg PO BID Seizures 1 month #60 tabs 03/21/24
Review of Systems
-
History Source: Patient and Family
A 12 point ROS was completed and negative except as noted: Yes
Constitutional: Denies Fever or Chills
Respiratory: Denies Cough or Trouble Breathing
Cardiac: Denies Chest Pain or Palpitations
Abdomen/GI: Denies Abdominal Pain, Nausea, Vomiting or Diarrhea
: Denies Dysuria, Frequency or Flank Pain
Musculoskeletal: Denies Joint Pain or Edema
Neurological: Reports Headache and Other (Speech issues.); Denies Dizzy, Weakness or Numbness
Psych: Denies Depression or Anxiety
Physical Exam
Vital Signs
Vital Signs
Temp Pulse Resp BP Pulse Ox
98.3 F 93 31 196/164 97
04/06/24 18:40 04/06/24 21:00 04/06/24 21:00 04/06/24 20:45 04/06/24 18:40
Physical Exam
General: Other (83y M in no acute distress.)
HEENT: Moist mucous membranes and PERRLA
Respiratory: Clear; No Wheezes, Rales or Rhonchi
Cardiac: S1/S2 and Regular Rhythm; No Murmur
GI: Soft, Non Tender, Non Distended and Normal Bowel Sounds
Neuro: Awake, Alert, No Motor Deficits and Other (Expressive aphasia - unable to name objects, state name, etc. Answers some Y/N questions - ? appropriately. Repeatedly states 'I'm fine'. Follows some commands but appears to not hear /
comprehend others.); No Oriented
Psych: No Agitated or Anxious
Laboratory Results
-
04/06/24 18:39
04/06/24 18:39
Laboratory Results
Total Bilirubin 0.5 mg/dl (0.2-1.3) 04/06/24 18:39
AST 22 U/L (17-59) 04/06/24 18:39
ALT 19 U/L (0-50) 04/06/24 18:39
Alkaline Phosphatase 51 U/L (38-126) 04/06/24 18:39
Troponin I < 0.012 ng/ml 04/06/24 18:39
Impression/Plan
-
A/P: Patient is an 83y M with PMH significant for ASCVD, HTN, AAA and recent admission for aphasia during which he received L ICA stent who presents to ED for evaluation of recurrent speech issues.
Expressive / Receptive Aphasia
Complex Partial Seizure Disorder
- Admit for further evaluation and treatment.
- Symptoms are identical to prior admission. No focal motor issues, weakness, sensory deficits.
- Prior MRI with no acute findings - will repeat given new symptoms.
- CT and CTA done in the ED this evening are unremarkable. L ICA patent with stent in place.
- Continue DAPT, statin, etc.
- Continue Keppra (additional load given in the ED).
- Follow for any new / worsening neurologic symptoms.
- Neurology evaluation for additional recommendations.
- ? atypical migraine, seizure activity, etc.
Benign Hypertension
- BP significantly elevated here in the ED - improved without specific intervention.
- Aim for more normotension given other issues (AAA as noted below).
- Continue metoprolol and nifedipine. IV Hydralazine as needed.
ASCVD
- s/p prior CABG and now bilateral carotid interventions.
- Continue DAPT, statin, etc as noted above.
AAA
- Recent CT showed increased in size.
- Some ecchymosis noted on chest and R groin during today's exam - ? due to DAPT.
- No complaints of chest pain, abdominal pain, etc.
Remote h/o A-Fib
- Had transient episode of A-fib following CABG.
- Since completed Holter / Event monitor showing no arrhythmia.
- Not on chronic OAC, etc.
DVT Prophylaxis: SCDs
Code Status: Full
--- NOTE | 2024-04-06 23:00 | PTCARENOTE ---
pt arrived to floor- he is oriented but confused. he is holding his head c/o pain. pt face is flush and extremely warm to touch. rectal temp =101.3-administered Tylenol. NIH=4- he has improved expressive/receptive aphasia. pt is on tele SR w/ 1AVB.
pt had a L carotid angio/stenting on 03/20/24 - incision approximated.
informed [employer] Joslyn - obtained orders for labs, urine, and covid. CXR completed.
pt bladder [id number] - straight cath for urine sample
pt is on bed alarm, seizure precautions, and call [facility] in reach.
[2024-04-06] MEDS: TYLENOL 650 MG PO (23:04)
--- NOTE | 2024-04-06 23:12 | W.PN.UPDATE ---
Update Note
Progress Note Update
Reported by the nursing staff new onset of fever 101.3. New orders of Covid, ua, chest x-ray, and blood culture placed .
[2024-04-06 23:53] LABS: Lactic Acid 1.3 mmol/L (0.7-2.0)
[2024-04-06 23:57] LABS: Urine Albumin Trace (Neg - Trace); Urine Bilirubin Negative (Negative); Urine Character Clear (Clear); Urine Color Yellow; Urine Glucose Negative (Negative); Urine Ketone Negative (Negative); Urine Leukocyte Negative (Negative); Urine Nitrite Negative (Negative); Urine Occult Blood Negative (Negative); Urine Urobilinogen Negative (Neg - 1+); Urine pH 6.5 (5.0-9.0)
[2024-04-07 00:07] VITALS: BMI 24.0
[2024-04-07 00:43] LABS: COVID-19 Antigen Negative (Negative)
[2024-04-07 03:15] VITALS: BP 159/76
[2024-04-07] MEDS: TYLENOL 650 MG PO ×2 (05:03→10:27)
[2024-04-07 07:55] VITALS: BP 156/66
[2024-04-07] MEDS: ASPIR LOW (ENTERIC COATED) 81 MG PO (08:24)
[2024-04-07] MEDS: KEPPRA 500 MG PO (08:24)
[2024-04-07] MEDS: CRESTOR 40 MG PO (08:24)
[2024-04-07] MEDS: LOPRESSOR 25 MG PO (08:24)
[2024-04-07] MEDS: PLAVIX 75 MG PO (08:25)
[2024-04-07] MEDS: PROCARDIA XL (EXTENDED RELEASE) 90 MG PO (08:25)
[2024-04-07 08:30] LABS: Hematocrit 39.3 % (39.0-52.0); Hemoglobin 13.6 g/dL (13.0-18.0); Mean Corp Hgb Conc. 34.6 g/dL (33.0-37.0); Mean Corpuscular Hgb 29.7 pg (27.0-31.0); Mean Corpuscular Volume 85.8 fL (80.0-94.0); Mean Platelet Volume 10.3 fL (7.4-10.4); Platelet Count 160 10^3/uL (130-400); Red Blood Cell Count 4.58 10^6/uL (4.70-6.10); Red Cell Dist. Width 13.5 % (11.5-14.5); White Blood Cell Count 7.6 10^3/uL (4.8-10.8)
--- NOTE | 2024-04-07 08:53 | W.PN.HOSP.TC ---
Addendum entered and electronically signed by Meghana Duke MD 04/07/24 15:59:
I saw and evaluated the patient independently. I reviewed the resident�s note and agree with findings and plan as documented by Dr. Jimenez.
GENERAL: well developed, well nourished, male in no apparent distress--speaking ( states at baseline)--has evidence of apparent dementia
HEENT: NC/AT--base of left neck still with steri strips from TCAR procedure
HEART: regular rate and rhythm, +S1, +S2
LUNGS : clear to auscultation bilaterally
ABDOM: soft, nontender, nondistended, + bowel sounds
EXT: no cyanosis, clubbing, or edema
NEUROLOGIC: grossly intact--apparent dementia
Aphasia--suspected Complex partial seizure disorder vs progression of dementia--apprec neuro--increasing Keppra to 1000mg BID--MRI neg-- Head CT and head/neck CTA negative for acute intracranial pathology; carotid arteries patent
Essential hypertension- continue home metoprolol, nifedipine
ASCVD s/p prior CABD- continue home ASA, clopidogrel, ezetimibe, gemfibrozil, rosuvastatin
AAA- recent CT showed increased in size, asymptomatic follow up outpatient
Remote h/o paroxysmal afib- transient episode after CABG, holter monitor showed no arrhythmia, not on chronic eliquis/warfarin
Code status: full
ok for d/c
Original Note:
Today's Communication/Plan
-
head MRI, consult neuro
Assessment / Plan
Assessment / Plan
83yo M with PMH ASCVD, HTN, AAA, carotid stenosis s/p recent L TCAR who presented to ED 04/06/24 for aphasia which began around 3:30pm. He was recently seen in ED 04/[address] was negative and he was dischaged home. He was also recently
hospitalized from 03/15/24-03/22/24 for aphasia at which time his MRI was negative for stroke, significant L carotid stenosis was noted and he underwent L TCAR 03/20/24, and he was started on Kepra 500mg BID for seizures.
Aphasia
Complex partial seizure disorder
- May be secondary to migraine or seizure activity.
- Head CT and head/neck CTA negative for acute intracranial pathology; carotid arteries patent.
- Obtain head MRI to evaluate for possible stroke
- Continue home kepra 500mg BID
- Consult neuro, appreciate recs
Essential hypertension- continue home metoprolol, nifedipine
ASCVD s/p prior CABD- continue home ASA, clopidogrel, ezetimibe, gemfibrozil, rosuvastatin
AAA- recent CT showed increased in size, asymptomatic follow up outpatient
Remote h/o paroxysmal afib- transient episode after CABG, holter monitor showed no arrhythmia, not on chronic eliquis/warfarin
Code status: full
VTE ppx: SCDs
Diet: low cholesterol
Dispo planning: anticipate dc home; timing tbd
Anticipated Discharge: Within 24 hours
Subjective/Interval History
-
Date of Service: April 07, 2024
No acute events overnight. He and his (present at bedside) report his aphasia is improving. He answers my questions with short responses. Reports ongoing headache. Denies lightheadedness, dizziness, chest pain, shortness of breath, nausea,
vomiting, diarrhea, constipation. Tolerating PO diet.
Objective Data
-
Labs:
Laboratory Results
04/07/24
07:38
WBC 7.6
Hgb 13.6
Hct 39.3
Plt Count 160
Sodium Pending
Potassium Pending
Chloride Pending
Carbon Dioxide Pending
BUN Pending
Creatinine Pending
Glucose Pending
Calcium Pending
Vital Signs:
Vital Signs
Temp Pulse Resp BP Pulse Ox
98.2 F 74 18 156/66 97
04/07/24 07:55 04/07/24 07:55 04/07/24 07:55 04/07/24 07:55 04/07/24 07:55
I&O
04/06/24 04/07/24 04/08/24
06:59 06:59 06:59
Intake Total 200 / 200
Output Total 700 / 700
Balance -500 / -500
Review of Systems
-
History Source: Patient
All other systems: Reviewed and negative
Physical Exam
-
General: Well Developed, Well Nourished, No Apparent Distress and Comfortable
HEENT: Normocephalic and Atraumatic
Respiratory: Clear to Auscultation and Non Labored Respirations
Cardiac: Regular Rhythm and S1/S2
GI: Soft, Nontender, Nondistended and Normal Bowel Sounds
Musculoskeletal: No Edema
Skin: Warm, Dry and Other (left neck surgical incision clean dry intact)
Neuro: AO x 3, Nonfocal/Grossly Intact and Central Nerve's Intact
Psych: Calm
Data Reviewed
-
CT Scan: Report Reviewed by me
Labs: Labs Reviewed by me
[2024-04-07 08:56] VITALS: BP 143/68; BP 156/69; PULSE 71; O2SAT 96
[2024-04-07 09:20] VITALS: BP 123/69; BP 133/70; PULSE 75; PULSE 78
[2024-04-07 09:20] LABS: Blood Urea Nitrogen 10 mg/dl (9-20); Calcium 8.9 mg/dl (8.4-10.2); Carbon Dioxide 24 mmol/L (22-30); Chloride 107 mmol/L (98-107); Estimated Creatinine Clearance 70 ml/min; Glucose 101 mg/dl (70-99); Potassium 3.6 mmol/L (3.5-5.1); Sodium 139 mmol/L (135-145); eGFR > 60.00
--- NOTE | 2024-04-07 11:05 | CON.NEURO4 ---
Addendum entered and electronically signed by Naresh Schreiber MD 04/07/24 13:18:
Studies reviewed.
I have personally examined the patient. I reviewed and agree with the [facility]'s Note.
My addenda:
Awake, alert, interactive. No acute distress.
Speech intact. Irritable. Fair recall
Follows 2-step requests w/o difficulty. No tremor.
Extra-ocular movements grossly intact.
Facial movements full and symmetric. Hearing intact to normal conversational volume.
Normal UE movements bilaterally.
Neck: full ROM.
Chest: no dyspnea
Heart: no JVD
Ext: (-) Clubbing, (-) Cyanosis, (-) Edema
IMPRESSIONS/RECOMMENDATIONS:
Abrupt onset of recurrent headache and aphasia
Differential diagnosis includes migraine with aura as well as seizure especially as recurrent MRI of brain imaging failed to demonstrate abnormalities
Advance the patient's levetiracetam from 500 mg every 12 hours to dosing of 1000 mg every 12 hours
Provide prochlorperazine 10 mg as needed for headache
No clear indication patient will require repeated studies at this time
D/W patient / family
Will continue to follow as outpatient.
Original Note:
Documented by User: Dalila Rao NP 04/07/24 12:32
Consultation - Neurology 4
-
CONSULTING PHYSICIAN: Naresh Schreiber MD
REFERRING PHYSICIAN: Hospitalists/Dr. Blanc
DICTATED BY: ISAIAH Jalloh
DATE/TIME OF REQUEST: 04/06/24
DATE/TIME OF CONSULTATION: 04/07/24
Reason for Consultation: Aphasia, confusion
History of Present Illness:
This is an 83-year-old right-handed male who has presented to the hospital on 04/06/24 with report of headache and aphasia. Patient is known to our inpatient Neurology service from an encounter in March 2024 when she presented to ER as a stroke
alert for global aphasia. MRI brain on 03/16/24 was negative for stroke. CTA head/neck and carotid ultrasound were suggestive of 70% L ICA stenosis. EEG was obtained on 03/17/24, when the patient was back at his baseline, and demonstrated a single
right frontal sharp wave. Patient was initiated on levetiracetam 500mg BID. Additionally, he underwent L TCAR on 03/20/24 given the possibility that his transient aphasia was related to his L ICA 70% stenosis. Postoperatively, patient has been
having frequent left-sided headaches and was evaluated in the ER on 04/03/24 for report of headache. CT head was obtained and is negative for any acute abnormalities.
His notes that he has an extensive history of migraines going back to his teens but they haven't been a big problem in recent years, until March 2024. He has been taking tylenol PRN with minimal relief of his discomfort. Yesterday (04/06/24),
patient's reports that he had finished eating lunch in his usual state when at 1530 he had a sudden onset of global aphasia similar to the events of March 2024. He presented to ER as a stroke alert, CT head and CTA head/neck were obtained
and were negative for any acute abnormalities. He was not a candidate for TNK/IAT due to unclear diagnosis and no LVO. He was loaded with levetiracetam 1g and provided prochlorperazine due to report of a headache. His home DAPT with aspirin and
plavix was continued. Blood pressure was elevated up to 204/93 overnight and his temperature was also elevated to 101.3 F. Today (04/07/24), patient reports feeling back to his baseline and his headache has resolved. He is very irritable and
impulsive during this interview. His notes that he has been newly irritable since yesterday, he was not this way after starting levetiracetam in March. He denies any dizziness, neck pain, vision changes, swallowing difficulty, numbness,
weakness, chest pain, palpitations, and shortness of breath.
Past Medical History: Afib, CAD, HTN, HLD, AAA, peripheral neuropathy, basal cell carcinoma, chylothorax
Surgical History: L TCAR 10/18/24, R CEA 2001, CABG x2, b/l inguinal hernia repair, b/l cataract removal/lens implant, thoracentesis
Family History: Father- stroke.
Social History: Former smoker. Occasional alcohol. No illicit drug use.
Allergies: No known allergies.
Home Medications: See below.
Review of Symptoms:
Patient denies any fever, headache, chest pain, shortness of breath, GI or symptoms.
�Per the HPI.�All systems are reviewed negative except above.
Physical Exam:
The patient is afebrile, abdomen is nondistended, breathing is unlabored, BLE are reddened, no edema. L chest/neck incision CDI.
Neurologic Examination:
The patient is awake, alert and oriented x 3. Very forgetful and irritable/impulsive. He is able to follow one-step commands and answer questions appropriately. Moderate difficulty following two-step commands. There is no aphasia or dysarthria. On
cranial nerve assessment, pupils are 3 mm bilateral, round and reactive to light and accommodation. Visual sherwood are full. Extraocular movements are intact. Facial sensations are intact and bilaterally symmetrical, there is no facial asymmetry.
Hearing is intact bilaterally to normal conversation volume. Tongue palate and uvula are midline. Sternocleidomastoid strengths are full bilaterally. Motor strengths are 5/5 bilateral upper and lower extremities on medical research Quechan scale.
There is no drift or involuntary movement noted. Deep tendon reflexes are 2+ bilateral upper and lower extremities and Babinski is absent bilaterally. There was no extinction noted on double simultaneous stimulation. Coordination is intact by finger
to nose bilaterally.
Lab Results: See below.
Neuro Imaging:
1. MRI brain 04/07/24: No acute intracranial abnormality.
Differentials for the patient's presentation include:
1. Recurrent aphasia; partial seizure with postictal irritability likely, but atypical confusional migraine also possible given extensive history of migraine headaches.
2. MRI brain negative for stroke, duration of symptoms with recurrent events is long to be supportive of TIA.
3. Uncontrolled hypertension.
Patient has the following risk factors for their symptoms: Recurrent aphasia, hx migraines, HTN, HLD age
Patient was not a candidate for TNK/IAT due to unclear diagnosis/low concern for stroke, and no LVO.
Recommendations:
-Continue increased levetiracetam dose from 500mg to 1000mg PO q12hrs. Monitor for ongoing irritability/mood changes, will need to switch to an alternative antiseizure medication if this does not resolve.
-Provide prochlorperazine 10mg PO PRN headache.
-Consider magnesium 400mg and riboflavin 400mg daily supplements for headache prevention.
-Goal normotension.
-Checking blood work for metabolic abnormalities.
-Infectious workup per primary team.
-Neurological checks/seizure precautions.
-DVT prophylaxis.
-No driving.
-Patient needs to follow-up with Neurology as an outpatient, may see the [facility] or one of the physicians.
Discussed patient care with: Dr. Schreiber, the patient, patient's
Vital Signs and Labs
-
Vital Signs and Labs:
Vital Signs
Temp Pulse Resp BP Pulse Ox
97.8 F 75 18 116/58 97
04/07/24 11:40 04/07/24 11:40 04/07/24 11:40 04/07/24 11:40 04/07/24 11:40
Lab Results
04/07/24 07:38
04/07/24 07:38
Sodium 139 mmol/L (135-145) 04/07/24 07:38
Potassium 3.6 mmol/L (3.5-5.1) 04/07/24 07:38
BUN 10 mg/dl (9-20) 04/07/24 07:38
Glucose 101 mg/dl (70-99) H 04/07/24 07:38
Calcium 8.9 mg/dl (8.4-10.2) 04/07/24 07:38
Medications
-
Active Medications
Generic Name Dose Route Start Last Admin
Trade Name Freq PRN Reason Stop Dose Admin
Acetaminophen 650 mg 04/06/24 22:24 04/07/24 10:27
Acetaminophen 325 Mg Tablet PO 05/04/24 22:23 650 mg
Q4HPRN PRN Administration
Mild Pain / Temp > 101
Aspirin 81 mg 04/07/24 08:00 04/07/24 08:24
Aspirin 81 Mg (Enteric Coated) Tablet PO 05/05/24 07:59 81 mg
DAILY SURJIT Administration
Clopidogrel Bisulfate 75 mg 04/07/24 08:00 04/07/24 08:25
Clopidogrel 75 Mg Tablet PO 05/05/24 07:59 75 mg
DAILY SURJIT Administration
Hydralazine HCl 10 mg 04/06/24 22:24
Hydralazine 20 Mg/Ml Vial IV 05/04/24 22:23
Q6HPRN PRN
SBP > 200 or DBP > 110
Levetiracetam 1,000 mg 04/07/24 11:20
Levetiracetam 500 Mg Regular Release Tablet PO 05/05/24 07:59
BID SURJIT
Lorazepam 1 mg 04/06/24 22:24
Lorazepam 2 Mg/Ml Vial IV 05/04/24 22:23
Q4HPRN PRN
Seizure activity
Metoprolol Tartrate 25 mg 04/07/24 08:00 04/07/24 08:24
Metoprolol 25 Mg Regular Release Tablet PO 05/05/24 07:59 25 mg
BID SURJIT Administration
Nifedipine 90 mg 04/07/24 08:00 04/07/24 08:25
Nifedipine 30 Mg Extended Release Tablet PO 05/05/24 07:59 90 mg
DAILY SURJIT Administration
Rosuvastatin Calcium 40 mg 04/07/24 08:00 04/07/24 08:24
Rosuvastatin (Crestor) 40 Mg Tablet PO 05/05/24 07:59 40 mg
BID SURJIT Administration
Sodium Chloride 0 flush 04/06/24 23:00
Sodium Chloride 0.9% (Flush) Syringe IV 05/04/24 22:59
PER PROTOCOL SURJIT
Sodium Chloride 0.5 ml 04/06/24 22:29
Nss (Pf) 10 Ml Vial For Ativan 1 Mg Dose IV 05/04/24 22:28
Q4HPRN PRN
IV LORAZEPAM DILUTION
Home Medications
�Medication �Instructions �Recorded
alprazolam 0.25 mg tablet 0.25 mg PO TIDPRN PRN anxiety 12/11/12
clopidogrel 75 mg tablet 75 mg PO DAILY Blood Clot 12/11/12
Prevention/Tx
ezetimibe 10 mg tablet 10 mg PO HS High Cholesterol 12/11/12
gemfibrozil 600 mg tablet 600 mg PO BID High Cholesterol 12/11/12
rosuvastatin 40 mg tablet (Crestor) 40 mg PO BID High Cholesterol 12/11/12
aspirin 81 mg tablet,delayed 81 mg PO DAILY Blood Clot 07/01/23
release Prevention/Tx
metoprolol tartrate 25 mg tablet 25 mg PO BID Blood Pressure 07/01/23
nifedipine 90 mg tablet,extended 90 mg PO DAILY Blood Pressure 07/01/23
release 24 hr
furosemide 20 mg tablet (Lasix) 20 mg PO MOWEFR Fluid 03/15/24
Retention/Swelling
tobramycin 0.3 %-dexamethasone 0.1 1 drp BOTH EYES TIDPRN PRN eye 03/15/24
% eye drops,suspension issues
levetiracetam 500 mg tablet 500 mg PO BID Seizures 1 month #60 03/21/24
tabs
NIH Stroke Score
Subsequent NIH Scale
Date of Subsequent NIH Scale: 04/07/24
Time of Subsequent NIH Scale: 11:30
NIH Stroke Score
Level of Consciousness: 0 - Alert
LOC Questions: 0-Answers both correctly
LOC Commands: 0-Performs both correctly
Best Horizontal Gaze: 0-Normal
Visual Sherwood: 0=Normal, no visual loss
Facial Palsy: 0=Normal, symmetrical
Motor - Right Arm: 0=No drift 10 seconds
Motor - Left Arm: 0=No drift 10 seconds
Motor - Right Le-No drift 5 seconds
Motor - Left Le-No drift 5 seconds
Limb Ataxia: 0-Absent
Sensation: 0-Normal
Best Language: 0-No aphasia
Dysarthria: 0-Normal
Extinction and Inattention: 0-No abnormality
Total Score:: 0
Modified [place] (mRS) Score
Modified [place] Scale (mRS): No symptoms
Score: 0

Documented by User: Naresh Schreiber MD 04/07/24 13:07
NIH Stroke Score
NIH Stroke Score
Total Score:: 0
Modified [place] (mRS) Score
Score: 0
[2024-04-07 11:40] VITALS: BP 116/58
--- NOTE | 2024-04-07 12:56 | PTOTSP ---
Speech Therapy Assessment
Oral/pharyngeal swallow deemed wfl. Recommend continue with regular solids and thin liquids.
Patient demonstrating reduced communication in areas of auditory comp at multiunit commands, and reading comp at paragraph level. Variable loudness during conversation with anxiety and lability noted at times.
reports patient speech/communication skills are at his baseline. No further skilled ST indicated but patient may benefit from services in home or outpatient setting if patient is unable to resume activities/tasks as he did before admission.
[2024-04-07 13:03] VITALS: BP 121/60; PULSE 66; O2SAT 96
--- NOTE | 2024-04-07 14:18 | CM ---
Patient seen at bedside with physicians. Patient was also present. Patient states that they live with his spouse in a 2 story home with multiple entrances. Patient independent prior to admission without assistive devices. Patient stated that
the plan is to go home with no VN needed. Patient agreed. PCP is Dr. Perry, and he uses the [facility] in [place]. Patient reviewed IMM and signed form placed on chart. CM will continue to follow for discharge planning needs.
Plan:home with follow up with physician/neurology
[2024-04-07 15:35] LABS: TSH Reflex To Free T4 3.96 uIU/ml (0.47-4.68)
[2024-04-07 15:38] LABS: Ferritin 41.7 ng/ml (17.9-464.0)
[2024-04-07 16:10] LABS: Folate 13.1 ng/ml (2.76-20); Vitamin B12 410 pg/ml (239-931)
--- NOTE | 2024-04-08 13:58 | W.DCSUMMARY ---
Discharge Summary
Discharge Data
Date of Admission: 04/06/24
Date of Discharge: 04/07/24
-
Pending Results: Yes
Additional Pending Results:
04/06/24 blood culture
Hospital Course
Discharging Physician : Dr. Jimenez, Dr. Duke
Disposition : Home
Primary care physician : Paresh Perry
Principal Discharge diagnosis : Aphasia likely secondary to complex partial seizure disorder vs migraine with aura vs progression of dementia
Chronic Discharge diagnosis : Complex partial seizure disorder, essential hypertension, atherosclerotic cardiovascular disease status post CABG, abdominal aortic aneurysm, carotid artery stenosis status post recent left TCAR
Hospital Course : 83yo M with PMH ASCVD, HTN, AAA, carotid stenosis s/p recent L TCAR who presented to ED 04/06/24 for aphasia which began around 3:30pm. He was recently seen in ED 04/[address] was negative and he was dischaged home. He was also
recently hospitalized from 03/15/24-03/22/24 for aphasia at which time his MRI was negative for stroke, significant L carotid stenosis was noted and he underwent L TCAR 03/20/24, and he was started on Kepra 500mg BID for seizures. During the current
admission starting 04/06/24, Head CT and head/neck CTA were negative for acute intracranial pathology and carotid arteries were patent bilaterally. MRI was unrevealing of acute intracranial pathology or stroke. Neuro was consulted, and his kepra dose
was increased to 1000mg BID. He had a single isolated temperature this admission for which blood cultures were obtained, but otherwise no signs or symptoms of infection. On day of discharge, he was stable and aphasia had resolved. He was discharged
home and will follow up with PCP and neurology outpatient.
Important imaging findings :
Head CT 04/06/24
IMPRESSION:
No acute intracranial abnormality.
There are likely small old lacunar infarcts in the right caudate nucleus and posterior left parietal lobe.
Mild diffuse cortical atrophy with mild nonspecific deep white matter changes again seen, as detailed above.
Head/neck CTA 04/06/24
IMPRESSION:
Patent left distal common carotid artery and internal carotid artery stent.
Marked beam hardening artifact from metal dental hardware limiting evaluation of the distal internal carotid arteries bilaterally without gross findings to suggest hemodynamically significant stenosis or internal carotid artery dissection.
Predominantly stable right carotid system in comparison with two recent prior CTA studies.
Dominant left vertebral artery again seen. No findings to suggest vertebral artery dissection bilaterally.
No findings to suggest proximal intracranial arterial stenosis bilaterally.
Chest xray 04/06/24
IMPRESSION:
Unchanged small left pleural effusion. No new focal airspace disease.
Brain MRI 04/07/24
IMPRESSION:
No acute intracranial abnormality.
Procedure findings : N/A
Discharge Plan
-
Patient Disposition: Home (Routine Discharge)
Discharge Diagnosis/Procedures: Aphasia, headache
Condition: Good
Diet: Low Cholesterol
Activity: As tolerated
Driving Restrictions: No driving
Bathing Restrictions: OK to Shower
Referrals:
Naresh Schreiber MD [Active] - in two to three weeks (Call your neurologist office to schedule follow up appointment for your seizure medication)
Paresh Perry MD [Family Provider] - in less than 1 week (Call your Primary Care Provider to schedule follow up appointment within 1 week of hospital discharge)
Additional Discharge Medication Instructions: Medication changes:
-Your dose of levetiracetam (also known as kepra) has increased. Please take 2 tablets (1,000 mg) twice per day. Follow up with your neurologist or primary care provider for refills.
New medications:
-Prochlorperazine (also known as compazine): Take 10mg every 6 hours as needed for headache. Do not take more than 4 in one day. For questions or refills, talk to your neurologist.
Continue your other home medications as you were taking prior to this hospitalization.
Prescriptions:
New
levetiracetam 500 mg Tablet
1,000 mg PO BID Qty: 60 0RF
prochlorperazine maleate [Compazine] 10 mg tablet
10 mg PO Q6H PRN (Reason: headache, nausea/vomiting) Qty: 30 0RF
Continued
clopidogrel 75 MG tablet
75 mg PO DAILY
alprazolam 0.25 MG tablet
0.25 mg PO TIDPRN PRN (Reason: anxiety)
gemfibrozil 600 MG tablet
600 mg PO BID
ezetimibe 10 MG tablet
10 mg PO HS
rosuvastatin [Crestor] 40 MG tablet
40 mg PO BID
aspirin 81 mg Tablet,Delayed Release (Dr/Ec)
81 mg PO DAILY
nifedipine 90 mg Tablet Extended Release 24hr
90 mg PO DAILY
metoprolol tartrate 25 mg Tablet
25 mg PO BID
furosemide [Lasix] 20 mg Tablet
20 mg PO MOWEFR
tobramycin-dexamethasone 0.3-0.1 % drops,suspension
1 drp BOTH EYES TIDPRN PRN (Reason: eye issues)
Discontinued
levetiracetam 500 mg Tablet
500 mg PO BID 30 Days Qty: 60 0RF
Discharge Orders:
Discharge Patient (As Directed); Ordered 04/07/24
Ordered By: Valeri Jimenez
Discharge Date and Time
Discharge Date/Time: 04/07/24 15:35
Print Language: SYRIAC
== END 2024-04-07 15:35 | disposition home or self-care (01) | DRG 884 ==
LOC: 4 WEST ACU 22:00
PROVIDERS: Nurse Practitioner Family; Student in an Organized Health Care Education/Training Program; ADMITTING PHYSICIAN Hospitalist; ATTENDING PHYSICIAN Internal Medicine; CONSULT PHYSICIAN Psychiatry & Neurology Neurology; EMERGENCY PHYSICIAN Student in an Organized Health Care Education/Training Program; FAMILY PHYSICIAN Internal Medicine
DX: F03.90 Unspecified dementia, unspecified severity, without behavioral disturbance, psychotic disturbance, mood disturbance, and anxiety (principal); R47.01 Aphasia; G40.209 Localization-related (focal) (partial) symptomatic epilepsy and epileptic syndromes with complex partial seizures, not intractable, without status epilepticus; I10 Essential (primary) hypertension; I25.10 Atherosclerotic heart disease of native coronary artery without angina pectoris; I71.40 Abdominal aortic aneurysm, without rupture, unspecified; I48.91 Unspecified atrial fibrillation; E78.00 Pure hypercholesterolemia, unspecified; G62.9 Polyneuropathy, unspecified; Z95.1 Presence of aortocoronary bypass graft; Z82.3 Family history of stroke; Z87.891 Personal history of nicotine dependence; G43.009 Migraine without aura, not intractable, without status migrainosus; Z79.82 Long term (current) use of aspirin; Z79.02 Long term (current) use of antithrombotics/antiplatelets; Z11.52 Encounter for screening for COVID-19
CPT/HCPCS: 70450; 70496; 70498; 70551; 71045; 80048; 80053; 81003; 82607; 82728; 82746; 82962; 83605; 84443; 84484; 85025; 85027; 87040; 87070; 87811; 92523; 92610; 93005; 96374; 96375; 97162; 97166; 99284; 99285; Q9967

== ENCOUNTER → 2024-05-01 10:33 | Outpatient (REF) | payer MEDICARE, BC, SELFPAY | LOC: DHVS 10:33 | PROVIDERS: ATTENDING PHYSICIAN Registered Nurse; FAMILY PHYSICIAN Surgery Vascular Surgery; OTHER PHYSICIAN Internal Medicine; OTHER PHYSICIAN Psychiatry & Neurology Neurology; REFERRING PHYSICIAN Internal Medicine | DX: Z98.890 Other specified postprocedural states (principal); I65.22 Occlusion and stenosis of left carotid artery | CPT/HCPCS: 93880 ==

== ENCOUNTER 2024-06-01 07:02 | Day surgery (SDC) | payer MEDICARE, BC, SELFPAY ==
[2024-06-01] VITALS (35 sets, daily range): BP systolic 124–157; BP diastolic 70–100; BMI 26.8; BMI 26.0
[2024-06-01] MEDS: NSS 500 IV (07:35)
[2024-06-01 07:55] LABS: Hematocrit 50.3 % (39.0-52.0); Hemoglobin 16.9 g/dL (13.0-18.0); Mean Corp Hgb Conc. 33.6 g/dL (33.0-37.0); Mean Corpuscular Hgb 30.5 pg (27.0-31.0); Mean Corpuscular Volume 90.6 fL (80.0-94.0); Mean Platelet Volume 10.6 fL (7.4-10.4); Platelet Count 186 10^3/uL (130-400); Red Blood Cell Count 5.55 10^6/uL (4.70-6.10); Red Cell Dist. Width 13.6 % (11.5-14.5); White Blood Cell Count 7.8 10^3/uL (4.8-10.8)
[2024-06-01 07:57] LABS: Blood Urea Nitrogen 23 mg/dl (9-20); Calcium 9.6 mg/dl (8.4-10.2); Carbon Dioxide 26 mmol/L (22-30); Chloride 103 mmol/L (98-107); Estimated Creatinine Clearance 49 ml/min; Glucose 111 mg/dl (70-99); Potassium 4.3 mmol/L (3.5-5.1); Sodium 141 mmol/L (135-145); eGFR > 60.00
[2024-06-01 08:01] LABS: INR 0.95; PT 13.2 Sec (11.4-14.6)
[2024-06-01 08:02] LABS: APTT 31.9 Sec (23.4-35.0)
[2024-06-01] MEDS: PLAVIX 300 MG PO (11:14)
[2024-06-01] MEDS: DILAUDID 0.25 MG IV ×2 (11:21→11:38)
--- NOTE | 2024-06-01 11:27 | W.PN.UPDATE ---
Update Note
Progress Note Update
Notified via Varney text the patient is reporting bilateral lower back pain, with radiation to right testicular area and asked by RN to evaluate patient, responded to bedside urgently. Vital signs stable, systolic blood pressure in the 150s and
heart rate in the 90s. Patient does endorse 8/10 lower back pain that is radiating to testicular area. He states he does not suffer from daily lower chronic back pain, but does note that he has not laid flat in 'weeks. 'He states he sleeps in a
recliner nightly. Suspect flare in back pain related to position of laying flat, will give order Dilaudid and then reassess. Right groin puncture site CDI, no evidence of hematoma, no pain with palpation at right groin, scrotum, or right CVA.
--- NOTE | 2024-06-01 12:17 | PTCARENOTE ---
Addendum..1210 Patient re-eval by Lisa Arthur in PACU assessment remains unchanged, however patient reports back/testicular pain #8/10 after narcotic intervention and off load back with pillow. Per Lisa Arthur stable for discharge to cath lab manager for
continued monitoring.
--- NOTE | 2024-06-01 12:30 | PTCARENOTE ---
Pt c/o low back pain straight across his back rated 8/10. Lisa COLON aware and in to evaluate pt. Lisa COLON states she is ordering a catscan of the pt's abdomen. Will continue to monitor.
[2024-06-01] MEDS: NSS 1000 IV (12:31)
--- NOTE | 2024-06-01 12:31 | W.PN.UPDATE ---
Update Note
Progress Note Update
Reevaluated patient, continues stable vital signs and unchanged right groin assessment. Right groin CDI, no evidence of hematoma, all surrounding compartments soft, no right-sided CVA tenderness with palpation, no pain with palpation to right groin
or scrotum. Patient continues to endorse 8/10 pain at bilateral lower back, given no change in reports of severe pain post administration of Dilaudid x [address] abdomen/pelvis without dye to rule out RP collection. Reviewed objective data,
physical exam, and vital signs with attending Dr. Orville Morales who agrees with plan.
--- NOTE | 2024-06-01 12:32 | PTCARENOTE ---
Pt's right groin bleeding. Manual pressure applied. No hematoma noted. Pt's heart rate in the low 100's. Lisa COLON made aware. Will continue to monitor.
--- NOTE | 2024-06-01 12:38 | PTCARENOTE ---
Dr Morales at pt bedside assessing pt's right groin bleeding. Manual pressure remains in place. Will continue to monitor.
--- NOTE | 2024-06-01 13:03 | PTCARENOTE ---
PT taken to cat scan via stretcher with telemetry monitor and RN.
--- NOTE | 2024-06-01 13:19 | PTCARENOTE ---
Pt returned from cat scan via stretcher with cardiac care unit nurse and RN.
--- NOTE | 2024-06-01 14:59 | PTCARENOTE ---
Verbal discharge instructions including plavix information/ instructions given to pt's via telephone. Pt's , Sobeida, verbalized understanding of instructions given. Questions encouraged and answered.
[2024-06-01] MEDS: OFIRMEV 100 IV (15:05)
[2024-06-01] MEDS: XANAX 0.25 MG PO (15:06)
--- NOTE | 2024-06-01 16:39 | PTCARENOTE ---
Just after INT d/c'd, pt began vomiting moderate amount of brown liquid. Pt states he feels better after vomiting. Pt states his back is now pain free. Lisa COLON made aware but is in the procedure room scrubbed in for another procedure. Will
continue to monitor.
--- NOTE | 2024-06-01 16:53 | PTCARENOTE ---
Pt is to be admitted per Dr Morales to telemetry. Pt and pt's made aware and agreed. Will place another IV and continue to monitor.
--- NOTE | 2024-06-01 18:40 | PTCARENOTE ---
Pt received from the [facility] via stretcher. Transport was w/o incident. Pt is AAOX3, Pt ambulated with one person assist upon arrival to the floor. Red rash noted right and left flank area along with redness b/l knees to ankles. Pt denies
pain or itch to the areas. Will make Attending MD aware. No sign of discomfort at this time. VSS, Pt is afebrile. Pt oriented to hosp. room, call stanford is within reach.
--- NOTE | 2024-06-01 18:57 | OR.RPT ---
Operative Report
Operative Report
Date of Operation: 06/01/2024
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
Procedure:
1.) Selective catheterization of right renal artery
2.) Balloon angioplasty and stenting of right renal artery (6 mm x 22 mm iCast)
3.) Selective catheterization of left renal artery
4.) Balloon angioplasty and stenting of left renal artery (7 mm x 22 mm iCast)
5.) Introduce wire/catheter to aorta from femoral access
6.) Diagnostic aortogram
7.) Ultrasound-guided percutaneous access to the right common femoral artery
Surgeon: Orville Morales III, MD
Anesthesia: Sedation with local
Fluoroscopy:
45.3 min
1173 mGy
183.68 Gy.cm2
Complications: None
Estimated Blood Loss: Minimal
History and Indications for Procedure: 83-year-old male with a large juxtarenal abdominal aortic aneurysm. He was also found to have heavily calcified bilateral renal artery stenoses. We were concerned that given the degree of renal artery
stenosis a fenestrated stent graft repair may prove technically challenging. We brought him to the operating room for pre-Zfen renal artery stenting.
Procedure in Detail: Chandra Hernandez was correctly identified and placed supine on the operating table. After adequate induction of anesthesia the bilateral groins were prepped and draped in the usual sterile fashion. A timeout was performed with the
nursing and anesthesia staff confirming the patient's identity as well as the nature and laterality of the procedure.
The right common femoral artery was identified under ultrasound guidance. The artery was patent. The superior and inferior aspects of the femoral head were identified with radiographic guidance and marked at the skin level. The proposed puncture
site was infiltrated with local anesthesia. Under ultrasound guidance we accessed the right common femoral artery with a micropuncture needle and upsized to a 5 Fr sheath over a [employer] wire. The wire and a [employer] hook flush catheter were
advanced into the abdominal aorta and a diagnostic aortogram was performed:
AORTOGRAM: Patent superior mesenteric artery. Patent celiac artery. Heavily calcified abdominal aorta throughout. Large abdominal aortic aneurysm. Patent renal arteries bilaterally with calcified high-grade stenoses at the origins of each.
ENDOVASCULAR INTERVENTION: Systemic heparin was administered. Exchanged out for a 6 Fr 45 cm sheath over a Kalos The[employer] wire. Selected the right renal artery under roadmap guidance with a MK2 catheter and Glidewire. The wire was advanced into a tertiary
branch and then exchanged out for a Saldana wire through a Quickcross catheter. I confirmed positioning in the right renal artery with a sheath arteriogram. The stenosis was predilated with a 5 mm angioplasty balloon across the origin. A 6 mm x 22
mm iCast stent was then positioned across the renal artery stenosis. The C arm was oriented appropriately to position the stent in the desired location. The stent was deployed by inflating the balloon to nominal pressure. The balloon was then
deflated and removed over the wire. Completion arteriogram demonstrated an excellent technical result with a widely patent right renal artery stent and brisk flow through the renal artery with no residual stenosis identified.
I then focused my attention on the left renal artery. I exchanged out for a 7 Portuguese hunting and fishing guide sheath over the Saldana wire to facilitate the correct angle for endovascular intervention on the left renal artery. With the hunting and fishing guide in the proper
position and using a [place] catheter with a Glidewire I selected the left renal artery. The Santosh catheter was advanced across the stenosis and I confirmed proper position in the left renal artery. The wire was exchanged out for a Saldana wire which
was advanced distally. I then brought into position a 7 mm x 22 mm iCast stent. This was positioned across the left renal artery stenosis and deployed in the desired location. The C-arm was oriented appropriately to position the stent in the
desired location. The balloon was then deflated and removed over the wire. Completion arteriogram demonstrated an excellent technical result with a widely patent left renal artery stent and brisk flow through the left renal artery with no residual
stenosis identified.
Satisfied with this result we concluded the procedure. The wire was disengaged from the left renal artery. The sheath was exchanged out for a short 7 Portuguese sheath. Protamine was administered. The sheath was secured in place with the plan to
pull it in the recovery area.
The patient tolerated the procedure well and was taken to the recovery area in stable condition.
Attestation: I was present and responsible for the entire procedure.
Signed:
Orville Morales III, MD
[facility] Vascular Surgery
[phone] (sbdg)
[2024-06-01] MEDS: HEPARIN 5000 UNITS SC (21:14)
[2024-06-01] MEDS: DEPAKENE 750 MG PO (21:14)
[2024-06-01] MEDS: KEPPRA 500 MG PO (21:15)
[2024-06-01] MEDS: LOPRESSOR 25 MG PO (21:15)
[2024-06-01] MEDS: ZETIA 10 MG PO (21:16)
[2024-06-02 03:05] VITALS: BP 138/74
[2024-06-02 04:20] VITALS: BMI 25.5
[2024-06-02] MEDS: BENADRYL 50 MG IV (04:26)
[2024-06-02 04:50] VITALS: BP 132/80
--- NOTE | 2024-06-02 05:39 | PTCARENOTE ---
Red rash noted on right and left flank upon admit to 2S, not sure if caused by contrast? MD was made aware. Rash was noted to start spreading early this AM to upper back, back of arms and starting to sides of ABD also becoming intensely red. Pt
denies itchiness or pain, no discomfort in throat or trouble swallowing, tongue at baseline size not itchy. Pt vitals remain stable HR 80's-90's rhythm Afib as previously documented. Night BIBLE WORKER made carmichael one time order for IV 50mg Benadryl given. Pt
educated on worsening signs and anaphylaxis. Pt able to teach back showing understanding. Pt had no complaints at that time. Call stanford within reach. Assessment care and vitals as charted.
--- NOTE | 2024-06-02 06:01 | PTCARENOTE ---
Red rash noted on right and left flank upon admit to 2S, not sure if caused by contrast? MD was made aware. Rash was noted to start spreading early this AM to upper back, back of arms and starting to sides of ABD also becoming intensely red. Pt
denies itchiness or pain, no discomfort in throat or trouble swallowing, tongue at baseline size not itchy. Pt vitals remain stable HR 70's-80's SR as previously documented. Night DIGITAL MEDIA DESIGNER made carmichael one time order for IV 50mg Benadryl given. Pt educated
on worsening signs and anaphylaxis. Pt able to teach back showing understanding. Pt had no complaints at that time. Call stanford within reach. Assessment care and vitals as charted.
[2024-06-02 07:05] VITALS: BP 151/75
[2024-06-02 07:09] LABS: Platelet Count 142 10^3/uL (130-400)
[2024-06-02 07:12] LABS: Hematocrit 42.7 % (39.0-52.0); Hemoglobin 14.3 g/dL (13.0-18.0); Mean Corp Hgb Conc. 33.5 g/dL (33.0-37.0); Mean Corpuscular Hgb 29.9 pg (27.0-31.0); Mean Corpuscular Volume 89.3 fL (80.0-94.0); Mean Platelet Volume 11.2 fL (7.4-10.4); Red Blood Cell Count 4.78 10^6/uL (4.70-6.10); Red Cell Dist. Width 13.5 % (11.5-14.5); White Blood Cell Count 8.4 10^3/uL (4.8-10.8)
[2024-06-02 07:40] LABS: Blood Urea Nitrogen 15 mg/dl (9-20); Calcium 8.9 mg/dl (8.4-10.2); Carbon Dioxide 27 mmol/L (22-30); Chloride 100 mmol/L (98-107); Estimated Creatinine Clearance 70 ml/min; Glucose 93 mg/dl (70-99); Potassium 3.5 mmol/L (3.5-5.1); Sodium 138 mmol/L (135-145); eGFR > 60.00
--- NOTE | 2024-06-02 07:55 | W.PN.VS ---
Today's Communication / Plan
-
Seen and assessed with Dr Morales
Assessment/Plan
-
POD 1 Balloon angioplasty and stenting of right renal artery (6 mm x 22 mm iCast)
Balloon angioplasty and stenting of left renal artery (7 mm x 22 mm iCast)
Plan:
-Pt ok for DC from vascular standpoint
Subjective Data
-
Date of Service: June 02, 2024
Pt seen at bedside this am with Dr Morales. Pt was noted to have a rash last evening, pt denies itching or discomfort at this time. No other events overnight.
Objective Data
-
Vital Signs
Temp Pulse Resp BP Pulse Ox
97.1 F 76 16 151/75 97
06/02/24 07:05 06/02/24 07:05 06/02/24 07:05 06/02/24 07:05 06/02/24 07:05
Intake and Output
06/01/24 06/02/24 06/03/24
06:59 06:59 06:59
Intake Total 1255 / 1255
Output Total 1420 / 1420
Balance -165 / -165
Intake:
Oral fluids 300 / 300
IV fluids (Total) 955 / 955
NSS 150 / 150
Output:
Urine, Voided 1420 / 1420
Other:
Number of approximated LARGE 1
amounts of urine
Lab Results
06/02/24 06:05
06/02/24 06:05
Calcium 8.9 mg/dl (8.4-10.2) 06/02/24 06:05
Physical Exam
-
AAOx3
No tachypnea
No tachycardia
Abd soft
Groin site c/d/i, soft, flat
Feet warm
[2024-06-02] MEDS: PLAVIX 75 MG PO (09:54)
[2024-06-02] MEDS: CRESTOR 40 MG PO (09:54)
[2024-06-02] MEDS: LOPRESSOR 25 MG PO (09:54)
[2024-06-02] MEDS: PROCARDIA XL (EXTENDED RELEASE) 90 MG PO (09:54)
[2024-06-02] MEDS: KEPPRA 500 MG PO (09:55)
[2024-06-02] MEDS: ASPIR LOW (ENTERIC COATED) 81 MG PO (09:55)
[2024-06-02] MEDS: HEPARIN 5000 UNITS SC (09:55)
--- NOTE | 2024-06-02 15:21 | CM ---
Late entry
Met with pt at bedside
Pt reports he lives with his in a 3 story home; 4 steps to enter, FF set-up
Independent with ADL's, ambulates with rolling walker or cane , shares roving teller with
DME - single point cane, rolling walker
SNF/HH - denies past hx
to transport home
PCP - Paresh Perry
Pharm - [facility]
Plan - anticipate home no needs
== END 2024-06-02 10:43 | disposition home or self-care (01) ==
LOC: CATH 07:02
PROVIDERS: Nurse Practitioner; ATTENDING PHYSICIAN Surgery Vascular Surgery; FAMILY PHYSICIAN Internal Medicine; OTHER PHYSICIAN Internal Medicine Cardiovascular Disease
DX: I70.1 Atherosclerosis of renal artery (principal); I71.42 Juxtarenal abdominal aortic aneurysm, without rupture; I65.22 Occlusion and stenosis of left carotid artery; Z79.82 Long term (current) use of aspirin; Z79.02 Long term (current) use of antithrombotics/antiplatelets; I10 Essential (primary) hypertension; E78.5 Hyperlipidemia, unspecified
CPT/HCPCS: 37236; 37237; 36252; 74176; 80048; 85027; 85610; 85730; C1725; C1769; C1874; C1887; C1894; Q9967

== ENCOUNTER 2024-07-13 06:07 | Inpatient (IN) | payer MEDICARE, BC, SELFPAY ==
[2024-07-08 09:36] VITALS: BMI 25.2
[2024-07-08 10:10] LABS: INR 0.93
[2024-07-08 10:11] LABS: APTT 31.2 Sec (23.4-35.0)
[2024-07-08 10:30] LABS: % Basophils 0.5 % (0-2); % Eosinophils 1.4 % (0-6); % Immature Granulocytes 0.3 % (0-0.5); % Lymphocytes 18.5 % (20.5-51.1); % Monocytes 10.8 % (1.7-9.3); % Neutrophils 68.5 % (42.2-75.2); Absolute Eosinophils 0.1 10^3/uL (0-0.7); Absolute Lymphocytes 1.1 10^3/uL (1.2-3.4); Absolute Monocytes 0.6 10^3/uL (0.1-0.6); Hematocrit 44.3 % (39.0-52.0); Hemoglobin 15.1 g/dL (13.0-18.0); Mean Corp Hgb Conc. 34.1 g/dL (33.0-37.0); Mean Corpuscular Hgb 30.6 pg (27.0-31.0); Mean Corpuscular Volume 89.7 fL (80.0-94.0); Mean Platelet Volume 10.3 fL (7.4-10.4); Nucleated Red Blood Cells % 0 % (-); Platelet Count 140 10^3/uL (130-400); Red Blood Cell Count 4.94 10^6/uL (4.70-6.10); Red Cell Dist. Width 13.7 % (11.5-14.5); White Blood Cell Count 5.9 10^3/uL (4.8-10.8)
[2024-07-08 10:43] LABS: Blood Urea Nitrogen 15 mg/dl (9-20); Calcium 9.2 mg/dl (8.4-10.2); Carbon Dioxide 27 mmol/L (22-30); Chloride 102 mmol/L (98-107); Estimated Creatinine Clearance 62 ml/min; Glucose 102 mg/dl (70-99); Potassium 3.9 mmol/L (3.5-5.1); Sodium 138 mmol/L (135-145); eGFR > 60.00
[2024-07-13] VITALS (11 sets, daily range): BP systolic 126–159; BP diastolic 58–75; BMI 25.1; BMI 25.3
[2024-07-13] MEDS: BACTROBAN NASAL 1 GRAM NASAL (07:02)
[2024-07-13] MEDS: PERIDEX 0.12% ORAL RINSE 15 ML PO (07:02)
[2024-07-13 08:49] LABS: ACT-LR - POC 305 Seconds (116-155)
[2024-07-13 09:53] LABS: ACT-LR - POC 253 Seconds (116-155)
--- NOTE | 2024-07-13 10:49 | W.IMMPOSTOP ---
Surgical Immed Post Op Note
-
Primary Surgeon: Carmen
Assisting Surgeon: Catherine
Pre-op Diagnosis: Juxtarenal abdominal aortic aneurysm
Post-op Diagnosis: Juxtarenal abdominal aortic aneurysm
Procedure Performed: Fenestrated EVAR
Anesthesia Type: General
Specimen / Cultures: None
Estimated Blood Loss: 10 cc
Complications: None
Operative Findings: Fenestrated EVAR with stents in bilateral renal arteries. B/l renal arteries, SMA open on completion angiogram.
[2024-07-13] MEDS: DILAUDID 0.5 MG IV ×2 (11:20→13:08)
[2024-07-13] MEDS: DILAUDID IV (11:20)
[2024-07-13 11:44] LABS: Hematocrit 36.9 % (39.0-52.0); Hemoglobin 12.4 g/dL (13.0-18.0); Mean Corp Hgb Conc. 33.6 g/dL (33.0-37.0); Mean Corpuscular Hgb 30.5 pg (27.0-31.0); Mean Corpuscular Volume 90.9 fL (80.0-94.0); Mean Platelet Volume 10.9 fL (7.4-10.4); Platelet Count 112 10^3/uL (130-400); Red Blood Cell Count 4.06 10^6/uL (4.70-6.10); Red Cell Dist. Width 13.9 % (11.5-14.5); White Blood Cell Count 12.7 10^3/uL (4.8-10.8)
--- NOTE | 2024-07-13 11:44 | OR.RPT ---
Operative Report
Operative Report
DATE OF OPERATION: 07/13/2024
Pre Op Diagnosis:
Juxtarenal abdominal aortic aneurysm
Previous bilateral renal artery stenting for high-grade calcified renal artery stenosis
Post Op Diagnosis:
Juxtarenal abdominal aortic aneurysm
Previous bilateral renal artery stenting for high-grade calcified renal artery stenosis
Procedure:
Percutaneous fenestrated aortic stent graft repair of juxtarenal abdominal aortic aneurysm:
Zfen P-07-29-93, large fenestration for SMA, bilateral renal fenestrations
Zfen D-76 distal main body
ZSLE 16-56 RIGHT iliac extension
ZSLE 16-74 LEFT iliac extension
2.) Bilateral renal artery stenting for fenestrated stent graft repair (6 x 22 iCasts bilaterally, post-dilated proximal to 10 mm)
3.) Ultrasound-guided percutaneous femoral access, bilateral
4.) Proglide closure of bilateral femoral artery access sites
Surgeon: Orville Morales III, MD
Alining Inspector: Beny Alexander MD PGY1
Anesthesia: General
Complications: None
History and Indications for Procedure: Large juxtarenal abdominal aortic aneurysm.
Procedure in Detail: Chandra Hernandez was correctly identified and placed supine on the operating table. After adequate induction of anesthesia the abdomen, pelvis and bilateral groins were positioned, prepped and draped in the usual sterile fashion.
Preoperative antibiotics were administered. A timeout procedure was performed with the nursing and anesthesia staff confirming the patient�s identity as well as the nature and laterality of the procedure.
Under ultrasound guidance, bilateral femoral artery 5Fr sheath access was obtained using a micropuncture technique. The arteries were patent on ultrasound. Ultrasound images of the femoral arteries were saved to the medical record. A pre-close
technique was performed bilaterally with 2 offset Proglide closure devices. The sutures were secured and tucked under surgical towels for use at the end of the case. Bilateral 8 Fr sheaths were replaced over Bentson wires. The patient was
systemically heparinized.
From the right femoral access a KMP catheter and Bentson wire were advanced to the proximal descending thoracic aorta. The wire was exchanged out through the MPA catheter for a Lunderquist wire. From the left femoral access a Bentson wire was
advanced into the abdominal aorta. A marker pigtail catheter was then placed for angiographic purposes.
The fenestrated stent graft (Zfen-P-2 -26-94) was opened and prepped on the back table. The stent was oriented in the proper position under radiographic guidance outside the body. While maintaining the proper orientation, the fenestrated main body
was advanced over the Lunderquist wire under radiographic guidance and placed in the appropriate position relative to the bilateral renal artery stents. �An aortogram was performed through the pigtail catheter which visualized the superior
mesenteric artery, patent bilateral renal artery stents and the abdominal aortic aneurysm.� The pigtail was pulled down into the distal aneurysm sac. The Zfen main body was then positioned in the desired location and then carefully unsheathed to the
distal end of the stent.
From the left femoral access the fenestrated main body was accessed with a KMP catheter and glidewire. I exchanged out for a Lunderquist. An 18Fr Dry Seal sheath was then carefully advanced into the fenestrated main body graft. Using a Van Schie 4
catheter and a glidewire the left renal artery was accessed. The glide wire was exchanged out for a Saldana wire. We performed an arteriogram to confirm proper positioning in the renal artery. A 6 Fr Paco sheath was advanced through the left renal
fenestration and into the seneca renal artery. A 6 mm x 22 �mm iCast was then advanced over the wire and placed across the fenestration still inside the sheath.
Through a separate access in the Dry Seal sheath and using a Van Schie 4 catheter and a glidewire the right renal artery was accessed. The glide wire was exchanged out for a Saldana wire. We performed an arteriogram to confirm proper positioning in
the renal artery. The 6 Fr Paco sheath was advanced through the right renal fenestration and into the seneca renal artery. A 6 mm x 22 mm iCast was then advanced over the wire and placed across the fenestration still inside the sheath.
Following successful cannulation of the renal artery fenestrations I then completed the deployment of the fenestrated main body with release of the diameter reducing wires and release of the top cap. The top cap was then carefully recaptured under
radiographic guidance and the delivery system carefully removed over the Lunderquist wire.
A Coda balloon was then inserted and the proximal seal zones of the Zfen main body were profiled with the Paco sheaths in position. The Coda was then removed over the wire.
Deployment of the iCast stents across the renal fenestrations were completed one at a time as follows: The renal fenestration markers on each side were 'closed' by adjusting the C-arm obliquity. One at a time the Paco sheaths were then retracted to
fully expose the iCast stent. The stent was properly positioned across the fenestration under magnification views and deployed by inflating the balloon to nominal pressure. The Paco sheath was re-advanced into the iCast to 'swallow' the balloon as
it was deflated. A 10 mm x 20 mm angioplasty balloon was then positioned in the proximal portion of the iCast. The sheath was retracted and the balloon inflated while maintaining gentle forward pressure to post-dilate the proximal end of the iCast.
The sheath was once again re-advanced into the stent by swallowing the balloon as it deflated. The Paco sheaths were each left in place inside the iCasts while the distal main body was introduced.�
The distal main body (Cpah-[id number]-[id number]) was prepped on the back table and brought to the field. The device was oriented outside the body under radiographic guidance. Over the Lunderquist wire on the right the distal main body was introduced carefully
under radiographic guidance and positioned properly. The Paco sheaths and wires bilaterally were then removed one at a time. The distal main body was then deployed down to the contralateral gate.
From the left femoral sheath the contralateral gate was successfully cannulated using a KMP catheter and a glide wire. A pigtail catheter was placed inside the distal main body and advanced to the proximal aspect that was constrained. I confirmed
proper position within the gate and main body by pushing forward on the pigtail catheter as I released the proximal constraining mechanism and watching under fluoro for the catheter to jump forward. After confirming the gate cannulation I advanced
the catheter and wire into the proximal descending thoracic aorta and then exchanged out for a Lunderquist. A marker pigtail catheter was placed over the Lunderquist and a retrograde sheath arteriogram was performed. I measured the length for the
iliac extension and the iliac bifurcation was clearly marked. The pigtail was removed and over the Lunderquist wire the contralateral limb extension (ZSLE 16-74) was advanced into the proper position with adequate overlap and preservation of the
iliac bifurcation. The stent was deployed without difficulty.
I then completed the deployment of the distal main body. The delivery system was carefully removed over the wire under radiographic guidance. A retrograde sheath arteriogram was performed on the ipsilateral side. Over the Lunderquist wire the
ipsilateral limb extension was placed (ZSLE 16-56). Proper overlap was obtained and the stent was deployed without difficulty. The delivery system was then removed over the wire.
A Coda balloon was then advanced one side at a time. The overlap between the fenestrated main body and the distal main body was profiled with the Coda. Both iliac limbs were also profiled including the overlap and the distal seal zones bilaterally.�
A pigtail catheter was placed once again. Stiff wires were removed. A completion aortogram demonstrated an excellent technical result. There was brisk flow through the aortic stent and iliac limbs. The renal arteries/stents were widely patent
bilaterally. The superior mesenteric artery filled briskly and was widely patent. �The iliac limbs were widely patent. The iliac bifurcations were preserved bilaterally.There was a poorly defined endoleak identified over the left lateral aspect of
the aneurysm sac.� This did appear somewhat early in the injection phase.� Additional aortograms could not clearly identify the source of the endoleak. The proximal main body was in the desired location. The renal stents were in good position.� Very
carefully I then repositioned the Coda balloon in the proximal aspect of the aortic stent graft, proximal to the renal artery stents.� I then profiled the proximal main body carefully at this location once again, ensuring that the Jay balloon did
not impact on the renal stents.� I then very carefully pulled the balloon down just below the renal artery stents and treated this area immediately below the renal stents with Coda balloon profiling once again. This was done under magnification
view. A follow-up aortogram demonstrated persistent endoleak but significantly improved.� Under magnification view the renal stents appear to be in good position with appropriate flaring of the proximal ends as desired. At this point I elected to
finish the case.
The Proglide sutures were secured bilaterally after removing the sheaths and wires. Protamine was administered. Additional pressure was applied to the puncture sites bilaterally for 10 minutes. Hemostasis was achieved bilaterally.
Skin glue was applied bilaterally.
The patient tolerated the procedure well and was taken to the PACU in stable condition.
Attestation:� I was present and responsible for all documented portions of the above procedure.
Signed:
Orville Morales III, MD
[facility] Vascular Surgery
[phone] (cell)
[2024-07-13] MEDS: DILAUDID 0.25 MG IV (11:45)
[2024-07-13 11:50] LABS: Blood Urea Nitrogen 14 mg/dl (9-20); Carbon Dioxide 23 mmol/L (22-30); Chloride 105 mmol/L (98-107); Estimated Creatinine Clearance 62 ml/min; Glucose 132 mg/dl (70-99); Potassium 3.3 mmol/L (3.5-5.1); Sodium 138 mmol/L (135-145); eGFR > 60.00
[2024-07-13] MEDS: NSS 1000 IV (12:25)
--- NOTE | 2024-07-13 12:48 | CON.INTV ---
Consultation
Consultation Request
Date/Time Consultation Requested: 07/13/2024-12:30 PM
Date/Time Consultation Performed: 07/13/2024-12:30 PM
Requesting Provider: Vascular surgery
Performing Provider: Dr. Martinez
Reason for Consultation: Postop critical care management
Medical History
-
Chief Complaint: left carotid stenosis/infrarenal AAA
History of Present Illness:
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
repair-roofer metal consulted for postoperative critical care management 07/13/2024. Patient is seen in the surgical intensive care unit postoperatively. Patient denies any shortness of breath, chest pain, chest tightness, productive cough,
abdominal pain, leg swelling and he has good peripheral pulses.
Past Medical History
Past Medical History: None (Migraines. Hypertension. AAA. Hyperlipidemia. CAD/CABG. TIA. Seizure x 04 MarchApril 2024. Cataract. Polypectomy. Inguinal hernia. CEA. Bilateral renal artery stent. Thoracentesis 07/2023.)
Social History
Tobacco: Former Smoker ([id number] quit 43 years old)
Drug: None
Living: With Family
Occupational Exposures: No known asbestos exposure
Environmental Exposures: No known tuberculosis exposure
Family History
Family History: Other (Father-hypertension, CVA and COPD. Mother-cancer.)
Allergies / Home Medications
Allergies
Allergy/AdvReac Type Severity Reaction Status Date / Time
No Known Allergies Allergy Verified 07/13/24 06:22
Home Medications
�Medication �Instructions �Recorded �Confirmed �Last Taken �Type
alprazolam 0.25 mg tablet 0.25 mg PO TIDPRN PRN anxiety 12/11/12 07/13/24 07/12/24 10:00 History
ezetimibe 10 mg tablet 10 mg PO HS High Cholesterol 12/11/12 07/13/24 07/12/24 09:00 History
rosuvastatin 40 mg tablet (Crestor) 80 mg PO DAILY High Cholesterol 12/11/12 07/13/24 07/12/24 10:00 History
aspirin 81 mg tablet,delayed 81 mg PO DAILY Blood Clot 07/01/23 07/13/24 07/12/24 05:00 History
release Prevention/Tx
metoprolol tartrate 25 mg tablet 25 mg PO BID Blood Pressure 07/01/23 07/13/24 07/12/24 09:00 History
nifedipine 90 mg tablet,extended 90 mg PO DAILY Blood Pressure 07/01/23 07/13/24 07/13/24 05:00 History
release 24 hr
levetiracetam 500 mg tablet 500 mg PO BID Seizures 05/25/24 07/13/24 07/13/24 05:00 History
valproic acid 250 mg capsule 750 mg PO HS 05/25/24 07/13/24 07/12/24 20:00 History
clopidogrel 75 mg tablet 75 mg PO DAILY #90 tabs 06/01/24 07/13/24 07/12/24 09:00 Rx
Review of Systems
-
Unable to Obtain full review of systems at this time due to: Other (Per HPI)
Vitals / Labs / Diagnostic Testing
Vital Signs
Temp Pulse Resp BP Pulse Ox
99 F 85 18 156/73 99
07/13/24 11:04 07/13/24 12:26 07/13/24 12:26 07/13/24 12:34 07/13/24 12:35
Lab Data
07/13/24 11:18
Diagnostic Testing:
Physical Exam
-
Exam:
Well-nourished and well-developed in no apparent distress
HEENT-atraumatic, normocephalic
Neck-supple, no JVD, no bruit
Heart-regular rate and rhythm-no murmurs, rubs or gallops
Chest-clear to auscultation, no wheezes, crackles
Back-no tenderness
Abdomen-soft, nontender, nondistended, no hepatosplenomegaly
Extremities-no cyanosis, clubbing, edema and good peripheral pulses
Integument-intact, no rashes, lesions or ecchymosis
Neurology-alert and oriented, nonfocal motor and sensory exam
Assessment
-
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
repair-roofer metal consulted for postoperative critical care management 07/13/2024.
Juxtarenal abdominal aortic aneurysm
Status post percutaneous fenestrated aortic stent graft repair-Dr. Morales 07/13/2024
Mild leukocytosis
Mild normocytic anemia
Mild thrombocytopenia
Hypokalemia
Conditions present prior to admission:
Migraines.
Hypertension.
AAA.
Hyperlipidemia.
CAD/CABG.
Former [id number]-year-quit 43 years old
Loculated left pleural effusion
TIA.
Seizure x 2 MarchApril 2024.
Cataract. Polypectomy. Inguinal hernia. CEA. Bilateral renal artery stents. Thoracentesis 07/2023.
Plan
Postoperative surgical intensive care unit monitoring
Supplemental oxygen as needed
Incentive spirometry
Aspiration precautions
Neuro and vascular checks per protocol
Monitor blood pressure/perfusion pressures and pulses closely
Monitor hemoglobin and platelet count
Transfuse if needed
Replace electrolytes
Vascular surgery following-correspondence and operative notes reviewed
DVT prophylaxis
Early nutrition
Early mobilization
Critical care statement: A total of 55 minutes of critical care time was provided for this patient today. This includes management of unstable vital signs, evaluation of the patient at bedside, reviewing the patient's pertinent medical records
including radiographs, microbiology, laboratory evaluations, and discussion with primary team, consultants, pharmacy, nutrition, physical therapy, case management, charge nurse, critical care nursing, and respiratory therapy.
Diagnostic data:
Chest x-ray 04/26-unchanged small left pleural effusion, lungs are clear
CT abdomen and pelvis 06/01/2024-small loculated left pleural effusion, simple left renal cyst, 6.1 cm infrarenal AAA
[id number]-[id number]-12/5/2024-no acute abnormalities
Echocardiogram 03/16/2024-EF 55-60%, no significant valvular disease
Data Reviewed
-
EKG: Report reviewed by me
Radiology: Image personally visualized and interpreted and Report reviewed by me
CT Scan: Report reviewed by me
Medical Tests (Nuc Med, Echo etc): Report reviewed by me
Labs: Labs reviewed by me
Old Records: Reviewed
Critical Care Time (in minutes): 55
[2024-07-13] MEDS: ASPIR LOW (ENTERIC COATED) 81 MG PO (13:03)
[2024-07-13] MEDS: PLAVIX 75 MG PO (13:03)
--- NOTE | 2024-07-13 13:03 | SUR.PHASEI ---
patient in PACU post op FEVAR - awake and alert - c/o back pain medicated with dilaudid 0.5mg IV and then .25mg with improvement. Back still sore - no groin pain. VSS [facility] on right and auto cuff on left. Monitor initially shows Tachy rhythm -
unable to see P Wave - though regular. Dr Mary notified. EKG done - when rate slowed to less than 100 - able to see p wave - first degree block. Labs sent from [facility]. Results to Mabel Arthur NP. doppler PT and DP's noted. warm covers on feet and
body. Discharge to ICCU with bedside hand off.
[2024-07-13] MEDS: KCL 160 MEQ IV (13:14)
--- NOTE | 2024-07-13 13:19 | PTCARENOTE ---
recd in ICU [id number] via bed, settled in room, see admission assessment information, pt slighty uncertain about details, requesting updates from when she arrives. pain noted back 6/10 scale, requesting meds, vascular team here, see orders for
dilaudid as noted, given. rest of assessment, vitals noted.
--- NOTE | 2024-07-13 15:20 | CON.INTV ---
Consultation
Consultation Request
Date/Time Consultation Requested: 07/13/2024-12:30 PM
Date/Time Consultation Performed: 07/13/2024-12:30 PM
Requesting Provider: Vascular surgery
Performing Provider: Dr. Martinez
Reason for Consultation: Postop critical care management
Medical History
-
Chief Complaint: Juxtarenal abdominal aortic aneurysm
History of Present Illness:
Patient is a 83-year-old gentleman with history of hypertension, hypercholesterolemia, seizure, TIA, right carotid endarterectomy, left carotid stenosis status post left TCAR who underwent percutaneous fenestrated aortic stent graft repair of
juxtarenal abdominal aortic aneurysm this a.m. following previous bilateral renal artery stenting for high-grade calcified renal artery stenosis. We are consulted for postoperative critical care management. Patient is currently awake, alert, and
oriented. Denies chest pain, shortness of breath, abdominal pain, headache, fever, chills.
Past Medical History
Past Medical History: CVA (TIA), HTN, Hypercholesterolemia, Seizures and Other (Migraine headache, abdominal aortic aneurysm)
Past Surgical History: Other (Right carotid endarterectomy, left TCAR, cataract, polypectomy, bilateral inguinal hernia repair)
Social History
Tobacco: Former Smoker
Living: With Family
Allergies / Home Medications
Allergies
Allergy/AdvReac Type Severity Reaction Status Date / Time
No Known Allergies Allergy Verified 07/13/24 06:22
Home Medications
�Medication �Instructions �Recorded �Confirmed �Last Taken �Type
alprazolam 0.25 mg tablet 0.25 mg PO TIDPRN PRN anxiety 12/11/12 07/13/24 07/12/24 10:00 History
ezetimibe 10 mg tablet 10 mg PO HS High Cholesterol 12/11/12 07/13/24 07/12/24 09:00 History
rosuvastatin 40 mg tablet (Crestor) 80 mg PO DAILY High Cholesterol 12/11/12 07/13/24 07/12/24 10:00 History
aspirin 81 mg tablet,delayed 81 mg PO DAILY Blood Clot 07/01/23 07/13/24 07/12/24 05:00 History
release Prevention/Tx
metoprolol tartrate 25 mg tablet 25 mg PO BID Blood Pressure 07/01/23 07/13/24 07/12/24 09:00 History
nifedipine 90 mg tablet,extended 90 mg PO DAILY Blood Pressure 07/01/23 07/13/24 07/13/24 05:00 History
release 24 hr
levetiracetam 500 mg tablet 500 mg PO BID Seizures 05/25/24 07/13/24 07/13/24 05:00 History
valproic acid 250 mg capsule 750 mg PO HS 05/25/24 07/13/24 07/12/24 20:00 History
clopidogrel 75 mg tablet 75 mg PO DAILY #90 tabs 06/01/24 07/13/24 07/12/24 09:00 Rx
Review of Systems
-
History Source: Patient
Constitutional: No Symptoms
EENT: No Symptoms
Respiratory: No Symptoms
Cardiac: No Symptoms
Abdomen/GI: No Symptoms
: No Symptoms
Musculoskeletal: No Symptoms
Skin: No Symptoms
Neuro: No Symptoms
Endocrine: No Symptoms
Hematologic/Lymphatic: No Symptoms
Vitals / Labs / Diagnostic Testing
Vital Signs
Temp Pulse Resp BP Pulse Ox
98.2 F 84 26 159/75 97
07/13/24 13:31 07/13/24 12:45 07/13/24 12:45 07/13/24 12:45 07/13/24 13:31
Lab Data
07/13/24 11:18
Diagnostic Testing:
Physical Exam
-
HEENT: Normocephalic
Cardiovascular: S1/S2 and Regular Rhythm
Respiratory: Clear
GI: Soft, Distended, Non Tender and Normal Bowel Sounds
Neurology: Awake, Alert, Oriented and AO x 3
Skin: Warm and Good Color
General: Comfortable
Exam:
Skin glue on bilateral femoral incisions. No hematoma, no active bleeding. Lower extremity pulses (proximal and distal) palpated bilaterally.
Assessment
-
83-year-old gentleman with history of hypertension, hypercholesterolemia, seizure, TIA, right carotid endarterectomy, left carotid stenosis status post left TCAR who underwent percutaneous fenestrated aortic stent graft repair of juxtarenal
abdominal aortic aneurysm this a.m. following previous bilateral renal artery stenting for high-grade calcified renal artery stenosis.
Juxtarenal abdominal aortic aneurysm (POD#1)
-- s/p percutaneous fenestrated aortic stent graft repair
-- patient ao x3, afebrile, denies any pain, sob, chest pain
-- leukocytosis, likely reactive
-- normocytic anemia
-- thrombocytopenia
-- hypokalemia - replete as needed
-- patient has not had oral intake yet, regular diet for dinner
Conditions present prior to admission:
Migraine
Hypertension - continue metoprolol, nifedipine
Hyperlipidemia - continue ezetimibe, rosuvastatin
CAD/CABG
TIA
Seizure - continue levetiracetam, valproic acid
Cataract
Polypectomy
Bilateral inguinal hernia repair
Right carotid artery endarterectomy, left TCAR - continue aspirin, clopidogrel
Plan
Postoperative surgical intensive care unit monitoring
Pain management as needed
IV fluids
Monitor I/O and temperature
Incentive spirometry
Aspiration precautions
Neuro and vascular checks
Monitor blood pressure/perfusion pressures and pulses closely
PT/OT tomorrow
Regular diet as tolerated
Recheck potassium this afternoon
Replete electrolytes as needed
Monitor blood counts
DVT prophylaxis - Subcu heparin
Full code
[2024-07-13] MEDS: ROXICODONE 5 MG PO (15:43)
[2024-07-13 15:54] LABS: Potassium 4.3 mmol/L (3.5-5.1)
--- NOTE | 2024-07-13 18:29 | PTCARENOTE ---
positioned for comfort. neurovasc checks continue, unchanged, occas L PT slightly harder to find but signal is present and robust when edema compressed. some rashy areas noted back, flank, pale red non-raised, not itchy, not painful. denies
history of sensitivity to sheets. pads changed. brushed teeth, no c/o, call [place] in reach.
[2024-07-13] MEDS: LOPRESSOR 25 MG PO (19:57)
[2024-07-13] MEDS: KEPPRA 500 MG PO (19:57)
[2024-07-13] MEDS: HEPARIN 5000 UNITS SC (19:57)
[2024-07-13] MEDS: DEPAKENE 750 MG PO (22:11)
[2024-07-13] MEDS: ZETIA 10 MG PO (22:11)
--- NOTE | 2024-07-14 00:29 | PTCARENOTE ---
Pt initial assessment as documented. Rugby/rashy areas to upper and lower back/shoulders are unchanged--pt denies pain/itching. c/o heartburn, PRN order for tums obtained.
[2024-07-14] MEDS: TUMS CHEWABLE TABLET 400 MG PO (00:43)
[2024-07-14] MEDS: NSS 1000 IV (02:00)
[2024-07-14 05:49] LABS: Hemoglobin 11.3 g/dL (13.0-18.0); Mean Corp Hgb Conc. 34.2 g/dL (33.0-37.0); Mean Corpuscular Volume 90.7 fL (80.0-94.0); Mean Platelet Volume 10.9 fL (7.4-10.4); Platelet Count 103 10^3/uL (130-400); Red Blood Cell Count 3.64 10^6/uL (4.70-6.10); Red Cell Dist. Width 13.9 % (11.5-14.5); White Blood Cell Count 8.6 10^3/uL (4.8-10.8)
[2024-07-14 05:55] LABS: INR 1.07; PT 14.2 Sec (11.4-14.6)
[2024-07-14 05:56] LABS: APTT 38.7 Sec (23.4-35.0)
[2024-07-14 06:00] VITALS: BMI 25.5
[2024-07-14 06:14] LABS: Blood Urea Nitrogen 12 mg/dl (9-20); Calcium 8.4 mg/dl (8.4-10.2); Carbon Dioxide 26 mmol/L (22-30); Chloride 106 mmol/L (98-107); Estimated Creatinine Clearance 83 ml/min; Glucose 98 mg/dl (70-99); Potassium 3.6 mmol/L (3.5-5.1); Sodium 137 mmol/L (135-145); eGFR > 60.00
--- NOTE | 2024-07-14 07:37 | W.PN.INTV ---
Today's Communication / Plan
Recommendations
deline
Increase activity
Neurovascular checks
Likely transferred out of ICU-call pulmonary if respiratory issues arise
Assessment
-
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
repair-information security specialist consulted for postoperative critical care management 07/13/2024.
Juxtarenal abdominal aortic aneurysm
Status post percutaneous fenestrated aortic stent graft repair-Dr. Morales 07/13/2024
Mild leukocytosis
Mild normocytic anemia
Mild thrombocytopenia
Hypokalemia
Conditions present prior to admission:
Migraines.
Hypertension.
AAA.
Hyperlipidemia.
CAD/CABG.
Former [id number]-year-quit 43 years old
Loculated left pleural effusion
TIA.
Seizure x 2 MarchApril 2024.
Cataract. Polypectomy. Inguinal hernia. CEA. Bilateral renal artery stents. Thoracentesis 07/2023.
Plan
Hemodynamically and neurovascularly intact
Wean supplemental oxygen
Incentive spirometry encourage
Aspiration precautions
Monitor hemoglobin
Transfuse if needed
Monitor blood sugars
Insulin supplementation if needed
Neuro and vascular checks per protocol also continue
Vascular surgery closely
DVT prophylaxis recommended
Nutrition
Increase activity/physical therapy
Patient can be transferred out of ICU-call pulmonary if respiratory issues arise
Reviewed the patient's pertinent medical records including radiographs, microbiology, laboratory evaluations, and discussion with primary team, consultants, pharmacy, nutrition, physical therapy, case management, charge nurse, critical care
nursing, and respiratory therapy.
Diagnostic data:
Chest x-ray 04/26-unchanged small left pleural effusion, lungs are clear
CT abdomen and pelvis 06/01/2024-small loculated left pleural effusion, simple left renal cyst, 6.1 cm infrarenal AAA
[id number]-[id number]-36/5/2024-no acute abnormalities
Echocardiogram 03/16/2024-EF 55-60%, no significant valvular disease
Subjective Dataa
Subjective Data
Date of Service:
Date of Service: July 14, 2024
Chief Complaint: Bulk Picker Follow Up and Pulmonary Follow Up
Subjective:
Doing well, no complaints of shortness of breath, chest pain, abdominal pain
Review of Systems
General: Other (Per HPI)
Objective Data
Data Reviewed
Vital Signs / I&O / Oxygen:
Vital Signs
Temp Pulse Resp BP Pulse Ox
98.3 F 57 11 128/51 97
07/14/24 03:44 07/14/24 00:30 07/14/24 00:30 07/13/24 19:57 07/14/24 00:30
Intake and Output
07/13/24 07/14/24 07/15/24
06:59 06:59 06:59
Intake Total 1805 / 1805
Output Total 1605 / 1605
Balance 200 / 200
SaO2 97
Nasal Cannula flow liters per 2
minute
Physical Exam
General: Respiratory Distress (n) and Comfortable
HEENT: Normocephalic, Anicteric and Moist Mucous Membranes
Cardiovascular: Regular Rhythm and Murmur
Respiratory: Wheeze (n), Crackles (n), Rhonchi (n), Non-Labored Respirations and Accessory Resp Muscle Use (n)
GI: Soft, Non Distended and Non Tender
Neurology: Awake, Alert and No Motor Deficits
Skin: Warm, Good Color, Cyanosis (n) and Jaundice (n)
Labs/Micro/Reports
Lab Data
07/14/24 05:30
07/14/24 05:30
Laboratory Results
07/14/24
05:30
PT 14.2
INR 1.07
APTT 38.7 H
--- NOTE | 2024-07-14 08:14 | W.PN.VS ---
Addendum entered and electronically signed by Orville Morales III, MD 07/14/24 11:16:
This patient was seen and examined with ISAIAH Park. I agree with the history and physical exam as well as the assessment and plan.
Signed:
Orville Morales III, MD
[facility]
[phone] (idza)
Original Note:
Today's Communication / Plan
-
Patient seen and examined at bedside with Dr. Orville Morales III, below plan reviewed with attending.
Assessment/Plan
-
Assessment: 83-year-old male POD #1 FEVAR
Plan:
Discontinue arterial line
Discontinue IV fluids
Discontinue Morales catheter
OOB to chair with progression to ambulation as tolerated
Continue DAPT of aspirin 81 mg and Plavix 75 mg p.o. daily
Possible discharge later this afternoon
Subjective Data
-
Date of Service: July 14, 2024
Patient seen and examined at bedside, offers no complaints. Reports complete resolution in back pain once able to sit up fully and endorses complete resolution of rash observed overnight by nursing staff. Denies nausea, vomiting, fever, and
chills. Tolerating p.o. diet.
Objective Data
-
Vital Signs
Temp Pulse Resp BP Pulse Ox
98.5 F 57 11 128/51 97
07/14/24 08:10 07/14/24 00:30 07/14/24 00:30 07/13/24 19:57 07/14/24 00:30
Intake and Output
07/13/24 07/14/24 07/15/24
06:59 06:59 06:59
Intake Total 1805 / 1805
Output Total 1605 / 1605
Balance 200 / 200
Intake:
Oral fluids 505 / 505
IV fluids (Total) 1220 / 1220
Nss 1,000 ml @ 80 mls/hr IV . 1120 / 1120
[id number] [facility] Rx#:[id number]
normosol 100 / 100
IV piggybacks 80 / 80
Output:
Urine, Morales 1605 / 1605
Lab Results
07/14/24 05:30
07/14/24 05:30
Calcium 8.4 mg/dl (8.4-10.2) 07/14/24 05:30
Physical Exam
-
No apparent distress, resting bed comfortably
No tachycardia
No dyspnea on room air
ABD flat, nontender, nondistended
Bilateral groin puncture sites CDI with intact Exofin glue, no evidence of hematoma, all surrounding compartments soft
Bilateral feet warm, DP Doppler signal present
Morales draining clear yellow urine
--- NOTE | 2024-07-14 08:26 | W.PN.INTV ---
Today's Communication / Plan
Recommendations
Continue po diet
OOB today
Removed sherman catheter
Discharge later today
Assessment
-
83-year-old gentleman with history of hypertension, hypercholesterolemia, seizure, TIA, right carotid endarterectomy, left carotid stenosis status post left TCAR who underwent percutaneous fenestrated aortic stent graft repair of juxtarenal
abdominal aortic aneurysm this a.m. following previous bilateral renal artery stenting for high-grade calcified renal artery stenosis.
Juxtarenal abdominal aortic aneurysm (POD#1)
-- s/p percutaneous fenestrated aortic stent graft repair
-- patient ao x3, afebrile, denies any pain, sob, chest pain
-- leukocytosis, likely reactive - now resolved
-- normocytic anemia - likely dilutonal
-- thrombocytopenia - likely dilutional
-- hypokalemia - replete as needed
-- patient tolerated oral intake
Conditions present prior to admission:
Migraine
Hypertension - continue metoprolol, nifedipine
Hyperlipidemia - continue ezetimibe, rosuvastatin
CAD/CABG
TIA
Seizure - continue levetiracetam, valproic acid
Cataract
Polypectomy
Bilateral inguinal hernia repair
Right carotid artery endarterectomy, left TCAR - continue aspirin, clopidogrel
Plan
Patient AO x3
No seizures this admission - continue home meds
Pain management as needed
Lungs clear
Heart S1, S2 NSR - blood pressures stable, MAP ~75-80 - continue BP medications
Tolerated po intake, continue cholesterol lowering diet, discontinue IV fluids
Replete potassium
Sherman catheter removed this am
OOB today and possible discharge this afternoon
Continue ASA and plavix
DVT prophylaxis - Subcu heparin
Full code
Subjective Dataa
Subjective Data
Date of Service:
Date of Service: July 14, 2024
Review of Systems
General: Fever (n), Chills (n), Pain (n) and Bleeding (n)
Cardiopulmonary: Dyspnea (n), Chest Pain (n) and Edema
GI: Abdominal Pain (n), Nausea (n) and Vomiting
Neuro: Headache (n)
Genitourinary: Sherman (removed this morning)
Objective Data
Data Reviewed
Vital Signs / I&O / Oxygen:
Vital Signs
Temp Pulse Resp BP Pulse Ox
98.5 F 57 11 128/51 97
07/14/24 08:10 07/14/24 00:30 07/14/24 00:30 07/13/24 19:57 07/14/24 00:30
Intake and Output
07/13/24 07/14/24 07/15/24
06:59 06:59 06:59
Intake Total 1805 / 1805
Output Total 1605 / 1605
Balance 200 / 200
SaO2 97
Nasal Cannula flow liters per 2
minute
Physical Exam
General: Comfortable
HEENT: Normocephalic
Cardiovascular: S1-S2 and Regular Rhythm
Respiratory: Clear
GI: Soft, Non Distended, Non Tender and Normal Bowel Sounds
Neurology: Awake, Alert, Oriented and AO x 3
Skin: Warm, Good Color and Other (No inguinal hematoma)
Labs/Micro/Reports
Lab Data
07/14/24 05:30
07/14/24 05:30
Laboratory Results
07/14/24
05:30
PT 14.2
INR 1.07
APTT 38.7 H
[2024-07-14] MEDS: LOPRESSOR 25 MG PO (09:07)
[2024-07-14] MEDS: CRESTOR 40 MG PO (09:07)
[2024-07-14] MEDS: PLAVIX 75 MG PO (09:07)
[2024-07-14] MEDS: KEPPRA 500 MG PO (09:07)
[2024-07-14 09:09] VITALS: BP 148/60
[2024-07-14] MEDS: ASPIR LOW (ENTERIC COATED) 81 MG PO (09:10)
[2024-07-14] MEDS: HEPARIN 5000 UNITS SC (09:10)
[2024-07-14] MEDS: PROCARDIA XL (EXTENDED RELEASE) 90 MG PO (09:11)
[2024-07-14 11:05] VITALS: BP 142/66
[2024-07-14 11:35] VITALS: BMI 25.5
[2024-07-14 11:36] VITALS: BP 142/70
--- NOTE | 2024-07-14 11:46 | PTCARENOTE ---
Updated assessment and vital sign trends as documented. Patient delined as per vascular team this am. 100% of breakfast taken. Patient ambulated room to bathroom with staff this am. Voided 200ml clear yellow urine without difficulty. Vascular
rounded again this morning, finished delining. Ambulate length of ICU without difficulty. B/L groin sites clean dry intact. Sites check by vascular team. Patient discharge teaching completed and signed. Reviewed with and patient. Prepping for
discharge. Vital signs as documented. Patient verbalizes follow up appointment and discharge instructions with no questions at this assessment.
--- NOTE | 2024-07-14 12:04 | CM ---
Patient seen at bedside.
IA completed
IMM explained & signed. In chart
Lives with in a multi-story home, 2 steps to enter, flight to second floor
PLOF: independent, does not use assistive device
Denies DME
Denies hh/states had outpatient rehab in past
PCP: Paresh Perry
[facility]
PLAN: Home, no needs
to transport
[2024-07-14] MEDS: KCL 40 MEQ PO (12:06)
--- NOTE | 2024-07-14 13:19 | W.DS.TRANS ---
DC Summary - Direct Sales Consultant
-
Discharge Instructions:
Sleep Apnea Risk Low
Discharge Diagnosis/Procedures Fenestrated endovascular repair of abdominal
aortic aneurysm
Diet As tolerated
Activity No strenuous activity
Driving Restrictions No driving for 3 days
Bathing Restrictions OK to Shower
Instructions:
Stand-Alone Forms: DC Instr - Vascular OR
Changes to Home Medications: No
Discharge Medications:
DC Medications w/original date entered in Vascular Therapies
alprazolam 0.25 mg tablet 0.25 mg PO TIDPRN PRN anxiety 12/11/12
ezetimibe 10 mg tablet 10 mg PO HS High Cholesterol 12/11/12
rosuvastatin 40 mg tablet (Crestor) 40 mg PO DAILY High Cholesterol 12/11/12
aspirin 81 mg tablet,delayed release 81 mg PO DAILY Blood Clot Prevention/Tx 07/01/23
metoprolol tartrate 25 mg tablet 25 mg PO BID Blood Pressure 07/01/23
nifedipine 90 mg tablet,extended release 24 hr 90 mg PO DAILY Blood Pressure 07/01/23
levetiracetam 500 mg tablet 500 mg PO BID Seizures 05/25/24
valproic acid 250 mg capsule 750 mg PO HS 05/25/24
clopidogrel 75 mg tablet 75 mg PO DAILY #90 tabs 06/01/24
Home Medication Changes
Pending Results: No
--- NOTE | 2024-07-14 13:51 | W.DCSUMMARY ---
Discharge Summary
Discharge Data
Date of Admission: 07/13/24
Date of Discharge: 07/14/24
-
Pending Results: No
Hospital Course
Attending: Orville Morales III
Consultants: Pulmonary medicine
Allergies: NKDA
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
Zfen P-07-29-93, large fenestration for SMA, bilateral renal fenestrations
Zfen D- distal main body
ZSLE 16-56 RIGHT iliac extension
ZSLE 16-74 LEFT iliac extension
Bilateral renal artery stenting for fenestrated stent graft repair (6 x 22 iCasts bilaterally, post-dilated proximal to 10 mm)
Ultrasound-guided percutaneous femoral access, bilateral
Proglide closure of bilateral femoral artery access sites
History of present illness: The patient is an 83 -year-old male with multiple medical conditions including: carotid stenosis, AAA, hypertension, hyperlipidemia, seizures, and TIA. Patient presented on 07/14/24 for scheduled procedure with Dr. Orville Renee
Carmen GUILLORY. Patient presented at baseline health with no reports of recent illness or trauma.
Hospital Course: Briefly, the patient underwent scheduled percutaneous fenestrated aortic stent graft repair of juxtarenal abdominal aortic aneurysm without complications, and recovered in PACU. Following recovery phase one and two patient was
transferred to intensive care unit per protocol for continued hemodynamic monitoring. Hat Checker consulted to aid in medical management from a critical care perspective. POD #1 (07/14/24) Patient with no complaints, bilateral surgical puncture sites
clean, dry, and intact with Exofin glue well approximated and soft. No evidence of hematoma. Patient tolerating diet. Arterial line and IV fluids discontinued. Patient able to ambulate without difficulty or incident. Patient stable for discharge to
home.
Prescriptions and follow up appointment are included in the DC summary manager clinical applications note. All instructions were given to the patient in both written and verbal form and the patient expressed understanding.
Discharge Plan
-
Patient Disposition: Home (Routine Discharge)
Discharge Diagnosis/Procedures: Fenestrated endovascular repair of abdominal aortic aneurysm
Condition: Good
Diet: As tolerated
Activity: No strenuous activity
Driving Restrictions: No driving for 3 days
Bathing Restrictions: OK to Shower
Stand Alone Forms: DC Instr - Vascular OR
Referrals:
Pauline Malcolm PA-C [Specified Professional Personl] - 07/27/24 9:30 am
Paresh Perry MD [Family Provider] -
Prescriptions:
Continued
alprazolam 0.25 MG tablet
0.25 mg PO TIDPRN PRN (Reason: anxiety)
ezetimibe 10 MG tablet
10 mg PO HS
rosuvastatin [Crestor] 40 MG tablet
40 mg PO DAILY
aspirin 81 mg Tablet,Delayed Release (Dr/Ec)
81 mg PO DAILY
nifedipine 90 mg Tablet Extended Release 24hr
90 mg PO DAILY
metoprolol tartrate 25 mg Tablet
25 mg PO BID
valproic acid 250 mg Capsule
750 mg PO HS
levetiracetam 500 mg tablet
500 mg PO BID
clopidogrel 75 mg Tablet
75 mg PO DAILY Qty: 90 0RF
Discharge Orders:
Discharge Patient (As Directed); Ordered 07/14/24
Ordered By: Lisa Arthur
Discharge Date and Time
Discharge Date/Time: 07/14/24 12:46
Print Language: LUXEMBOURGISH
== END 2024-07-14 12:46 | disposition home or self-care (01) | DRG 269 ==
LOC: ICU 06:07
PROVIDERS: Nurse Practitioner; ADMITTING PHYSICIAN Surgery Vascular Surgery; CONSULT PHYSICIAN Internal Medicine Critical Care Medicine; FAMILY PHYSICIAN Internal Medicine
PROC: 04V03EZ Restriction of Abdominal Aorta with Branched or Fenestrated Intraluminal Device, One or Two Arteries, Percutaneous Approach (ICD-10-PCS; 2024-07-13)
DX: I71.42 Juxtarenal abdominal aortic aneurysm, without rupture (principal); I10 Essential (primary) hypertension; E78.2 Mixed hyperlipidemia; I25.10 Atherosclerotic heart disease of native coronary artery without angina pectoris; R56.9 Unspecified convulsions; I65.22 Occlusion and stenosis of left carotid artery; I70.1 Atherosclerosis of renal artery; E87.6 Hypokalemia; D64.9 Anemia, unspecified; D69.6 Thrombocytopenia, unspecified; Z79.82 Long term (current) use of aspirin; Z79.899 Other long term (current) drug therapy; Z95.828 Presence of other vascular implants and grafts; Z95.1 Presence of aortocoronary bypass graft; Z87.891 Personal history of nicotine dependence; Z86.73 Personal history of transient ischemic attack (TIA), and cerebral infarction without residual deficits; Z79.02 Long term (current) use of antithrombotics/antiplatelets
CPT/HCPCS: 34713; 34847; 36415; 37236; 37237; 80048; 84132; 85025; 85027; 85610; 85730; 86850; 86900; 86901; 93005; C1725; C1760; C1768; C1769; C1874; C1887; C1894; C2628; Q9967

== ENCOUNTER 2024-07-16 01:07 | Emergency (ER) | payer MEDICARE, BC, SELFPAY ==
[2024-07-16] VITALS (11 sets, daily range): BP systolic 133–162; BP diastolic 55–72; BMI 25.4
[2024-07-16 02:23] LABS: ALT (SGPT) 14 U/L (0-50); AST (SGOT) 19 U/L (17-59); Albumin 3.3 g/dl (3.5-5.0); Alkaline Phosphatase 55 U/L (38-126); Blood Urea Nitrogen 13 mg/dl (9-20); Calcium 8.8 mg/dl (8.4-10.2); Carbon Dioxide 28 mmol/L (22-30); Chloride 105 mmol/L (98-107); Estimated Creatinine Clearance 61 ml/min; Glucose 106 mg/dl (70-99); Potassium 4.2 mmol/L (3.5-5.1); Sodium 140 mmol/L (135-145); Total Bilirubin 0.7 mg/dl (0.2-1.3); Total Protein 5.7 g/dl (6.3-8.2); eGFR > 60.00
[2024-07-16 02:35] LABS: % Basophils 0.5 % (0-2); % Eosinophils 1.4 % (0-6); % Immature Granulocytes 0.2 % (0-0.5); % Lymphocytes 9.7 % (20.5-51.1); % Monocytes 12.5 % (1.7-9.3); % Neutrophils 75.7 % (42.2-75.2); Absolute Eosinophils 0.1 10^3/uL (0-0.7); Absolute Lymphocytes 0.8 10^3/uL (1.2-3.4); Absolute Neutrophils 6.1 10^3/uL (1.4-6.5); Hematocrit 35.4 % (39.0-52.0); Hemoglobin 12.1 g/dL (13.0-18.0); Mean Corp Hgb Conc. 34.2 g/dL (33.0-37.0); Mean Corpuscular Hgb 30.8 pg (27.0-31.0); Mean Corpuscular Volume 90.1 fL (80.0-94.0); Mean Platelet Volume 11.2 fL (7.4-10.4); Nucleated Red Blood Cells % 0 % (-); Platelet Count 94 10^3/uL (130-400); Red Blood Cell Count 3.93 10^6/uL (4.70-6.10)
--- NOTE | 2024-07-16 03:38 | ED.GENMED ---
History of Present Illness
<Nichole Romo DO - Last Filed: 07/16/24 09:13>
General
Chief Complaint: Post Operative Problem(s)
Source: patient, spouse and previous hospital records
Exam Limitations: none
Time Seen by Provider: 07/16/24 01:12
Nursing documentation reviewed up to this point in time: agreed with
History of Present Illness
History of Present Illness:
This is an 83-year-old gentleman who underwent endovascular AAA repair [address] Morales. Along with AAA stent he had bilateral renal artery stents placed. Bilateral femoral artery puncture sites. Discharged to home July 14. He has
been feeling well, got up out of bed tonight to go to the bathroom and noticed some wetness left anterior groin site and discovered that this wetness was bleeding from his left groin site. He denies pain. No abdominal pain, no back pain, no
dizziness nor lightheadedness. He continues with slow oozing from left groin puncture site.
He is chronically maintained on Plavix as well as low-dose aspirin.
Past History
<Nichole Romo DO - Last Filed: 07/16/24 09:13>
Past History
ED Past Medical History: CAD, HTN, Hypercholesterolemia and Other (Chylothorax, carotid artery disease, renal artery stenosis, AAA)
ED Past Surgical History: Other (carotid artery surgery, CABG, endovascular AAA repair/stent July 13, 2024. Renal artery stenosis stenting bilaterally)
Social History
Tobacco: Non-smoker
Alcohol: None
Drug: None
Personal:
Living: with family
Employment: Retired
Family History
Family History: Other (Noncontributory)
Phy Exam
<Nichole Romo DO - Last Filed: 07/16/24 09:13>
Physical Exam
Physical Exam:
GENERAL: 83-year-old gentleman appears his stated age, bright and alert, pleasant, appears in no acute distress. is accompanying.
EYE: anicteric
NECK: Supple, nontender, no meningismus, no significant adenopathy.
ENT: oral mucosa is moist. No rhinorrhea.
CARDIAC: Regular rate and rhythm. no murmur.
LUNGS: Clear breath sounds bilaterally, no acute respiratory distress, no wheezes/rales/rhonchi
ABDOMEN: Soft, nondistended, without focal tenderness, no r/g, no cvat. normoactive BS. Bilateral groin sites with small firm nontender subcutaneous hematomas with mild local dark purple will ecchymosis. There is mild slow oozing of blood from
left groin site oozing from medial aspect of wound glue/patch. Oozing promptly resolves with local pressure.
BACK: Nontender. Straight leg raising is negative bilaterally.
NEUROLOGICAL: Alert and oriented x3, no focal neuro deficits. Gait is steady.
SKIN: Warm and dry, normal color, no rash.
MUSCULOSKELETAL: No C/C/E. peripheral pulses are full and equal b/l. No palpable tenderness. Extremities are warm bilaterally. Peripheral pulses are full and equal bilaterally.
PSYCH: Normal and appropriate interaction.
Course
<Nichole Romo, DO - Last Filed: 07/16/24 09:13>
Orders/Labs/Results
Orders:
Orders
07/16/24
US Groin (vascular exam) RT Urgent
Reason For Exam: S/P PROCEDURE
07/16/24 01:41
Ct Cta A/P W/Wo Urgent
Comment: Attending does not need runoff
Reason For Exam: endovasc AAA repair 07/13-bleeding L groin
07/16/24 01:52
Type+Screen Urgent
Complete Blood Count/With Diff Urgent
Comprehensive Metabolic Panel Urgent
07/16/24 04:29
US Groin (vascular exam) LT Urgent
Reason For Exam: bleeding L groin
Abnormal Lab Results
07/16/24
01:52
RBC 3.93 L 10^6/uL
(4.70-6.10)
Hgb 12.1 L g/dL
(13.0-18.0)
Hct 35.4 L %
(39.0-52.0)
Plt Count 94 L 10^3/uL
(130-400)
MPV 11.2 H fL
(7.4-10.4)
Absolute Lymphs (auto) 0.8 L 10^3/uL
(1.2-3.4)
Absolute Monos (auto) 1.0 H 10^3/uL
(0.1-0.6)
Neutrophils % 75.7 H %
(42.2-75.2)
Lymphocytes % 9.7 L %
(20.5-51.1)
Monocytes % 12.5 H %
(1.7-9.3)
Glucose 106 H mg/dl
(70-99)
Total Protein 5.7 L g/dl
(6.3-8.2)
Albumin 3.3 L g/dl
(3.5-5.0)
07/16/24 01:52
07/16/24 01:52
Vital Signs
Initial and Last Documented VS:
Initial Vital Signs
Temp Pulse Resp BP Pulse Ox
97.8 F 90 22 162/70 97
07/16/24 01:09 07/16/24 01:09 07/16/24 01:09 07/16/24 01:09 07/16/24 01:09
Last Documented Vital Signs
Temp Pulse Resp BP Pulse Ox
97.8 F 76 20 133/55 98
07/16/24 01:09 07/16/24 10:15 07/16/24 10:15 07/16/24 10:00 07/16/24 07:21
<Cinthia Estrada MD - Last Filed: 07/16/24 10:25>
Orders/Labs/Results
Orders:
Orders
07/16/24
US Groin (vascular exam) RT Urgent
Reason For Exam: S/P PROCEDURE
07/16/24 01:41
Ct Cta A/P W/Wo Urgent
Comment: Attending does not need runoff
Reason For Exam: endovasc AAA repair 07/13-bleeding L groin
07/16/24 01:52
Type+Screen Urgent
Complete Blood Count/With Diff Urgent
Comprehensive Metabolic Panel Urgent
07/16/24 04:29
US Groin (vascular exam) LT Urgent
Reason For Exam: bleeding L groin
Abnormal Lab Results
07/16/24
01:52
RBC 3.93 L 10^6/uL
(4.70-6.10)
Hgb 12.1 L g/dL
(13.0-18.0)
Hct 35.4 L %
(39.0-52.0)
Plt Count 94 L 10^3/uL
(130-400)
MPV 11.2 H fL
(7.4-10.4)
Absolute Lymphs (auto) 0.8 L 10^3/uL
(1.2-3.4)
Absolute Monos (auto) 1.0 H 10^3/uL
(0.1-0.6)
Neutrophils % 75.7 H %
(42.2-75.2)
Lymphocytes % 9.7 L %
(20.5-51.1)
Monocytes % 12.5 H %
(1.7-9.3)
Glucose 106 H mg/dl
(70-99)
Total Protein 5.7 L g/dl
(6.3-8.2)
Albumin 3.3 L g/dl
(3.5-5.0)
07/16/24 01:52
07/16/24 01:52
Vital Signs
Initial and Last Documented VS:
Initial Vital Signs
Temp Pulse Resp BP Pulse Ox
97.8 F 90 22 162/70 97
07/16/24 01:09 07/16/24 01:09 07/16/24 01:09 07/16/24 01:09 07/16/24 01:09
Last Documented Vital Signs
Temp Pulse Resp BP Pulse Ox
97.8 F 76 20 133/55 98
07/16/24 01:09 07/16/24 10:15 07/16/24 10:15 07/16/24 10:00 07/16/24 07:21
<DO Ellyn Bell Last Filed: 07/16/24 09:13>
MDM/Problems Addressed
Differential Diagnosis Includes:
Concern for focal oozing of blood from focal hematoma versus femoral artery leakage, concern for femoral artery pseudoaneurysm, concern for endovascular leak.
Clinically well in appearance, hemodynamically stable.
Will check labs and check CTA of the abdomen and pelvis.
Will plan to contact vascular surgery.
Chronic conditions affecting care: HTN and Other (Recent AAA endovascular repair with stent.)
<DO Ellyn Bell Last Filed: 07/16/24 09:13>
*Radiology
Radiology exam reviewed: radiology read reviewed
*Pulse Oximetry
Patient hypoxic: no
*Critical Care Note
Total Time (30-74mins, 75-104mins- exclusive of procedures): Not Applicable
<DO Ellyn Bell Last Filed: 07/16/24 09:13>
Update Note
Update Note:
04:00
CAT scan shows postoperative changes, soft tissue hemorrhage within the right inguinal region, compression device on the left inguinal region but no evidence of pseudoaneurysm nor active bleeding identified. There is no retroperitoneal hemorrhage.
Case discussed with Dr. Beltre. He has viewed the CAT scan images.
Recommends continued observation in the ED with plan for vascular/arterial ultrasound of left groin in the a.m. and if this is stable without bleeding we will plan to discharge to home at that time.
07:30
Vascular surgery at bedside.
Patient continues with slow ooze left groin puncture site but no evidence of expanding subcutaneous hematoma, no ecchymosis and patient continues to have no focal tenderness.
He remains hemodynamically stable.
Vascular surgery plans to trial local pressure and if this is ineffective, local suturing.
Awaiting arterial ultrasound left groin and vascular surgery request ultrasound right groin as well.
Vascular surgery will follow up with ultrasound results.
<Cinthia Estrada MD - Last Filed: 07/16/24 10:25>
Update Note
Update Note:
04:00
CAT scan shows postoperative changes, soft tissue hemorrhage within the right inguinal region, compression device on the left inguinal region but no evidence of pseudoaneurysm nor active bleeding identified. There is no retroperitoneal hemorrhage.
Case discussed with Dr. Beltre. He has viewed the CAT scan images.
Recommends continued observation in the ED with plan for vascular/arterial ultrasound of left groin in the a.m. and if this is stable without bleeding we will plan to discharge to home at that time.
07:30
Vascular surgery at bedside.
Patient continues with slow ooze left groin puncture site but no evidence of expanding subcutaneous hematoma, no ecchymosis and patient continues to have no focal tenderness.
He remains hemodynamically stable.
Vascular surgery plans to trial local pressure and if this is ineffective, local suturing.
Awaiting arterial ultrasound left groin and vascular surgery request ultrasound right groin as well.
Vascular surgery will follow up with ultrasound results.
Arterial ultrasound confirmed no active bleeding nor pseudoaneurysm or fistula. Sandbag removed from right groin site with no active bleeding. Vascular surgery came to reassess patient and feels he could safely go home
ED Attending Note
<Nichole Romo, DO - Last Filed: 07/16/24 09:13>
-
Portions of this chart may have been created with voice recognition software.� Occasional wrong word or��sound alike� substitutions may have occurred due to the inherent limitations of voice recognition software.
Discharge Plan
Departure
Patient Disposition: Home (Routine Discharge)
Date of Disposition: 07/16/24
Time of Disposition: 10:24
Patient with high blood pressure during this ER visit?: Yes
Condition: Good
Discharge Problem:
post operative bleeding left groin
Instructions: Bleeding After Surgery, BLOOD PRESSURE
Prescriptions:
No Action
ezetimibe 10 MG tablet
10 mg PO HS
aspirin 81 mg Tablet,Delayed Release (Dr/Ec)
81 mg PO DAILY
metoprolol tartrate 25 mg Tablet
25 mg PO BID
valproic acid 250 mg Capsule
750 mg PO HS
nifedipine 90 mg Tablet Extended Release
90 mg PO DAILY
alprazolam 0.25 mg Tablet
0.25 mg PO TID
gemfibrozil 600 mg Tablet
600 mg PO BID
furosemide 20 mg Tablet
20 mg PO MOWEFR
clopidogrel 75 mg Tablet
75 mg PO DAILY
rosuvastatin 40 mg Tablet
40 mg PO BID
tobramycin-dexamethasone
1 dose ophthalmic (eye) TID
Rx Instructions:
1 drop both eyes tid
Referrals:
Paresh Perry MD [Family Provider] -
Activity Restrictions/Additional Instructions:
Return for any increased bleeding from wound
Interventions
Interventions:
*Risk Screen - Suicide Last Done: 07/16/24 01:09
*General Assessment Last Done: 07/16/24 01:22
*Neglect/Abuse Screening Last Done: 07/16/24 01:09
ED- Fall Risk Assessment Last Done: 07/16/24 01:22
*ED COVID-19 Vaccine History Last Done: 07/16/24 01:22
ED-Skin Assessment Last Done: 07/16/24 07:22
Discharge Date and Time
Print Language: PERUVIAN
--- NOTE | 2024-07-16 07:39 | W.PN.UPDATE ---
Update Note
Progress Note Update
Seen and evaluated with GARRISON Smallwood and GARRISON Arthur (full consultation to follow). Discussed case in the early hours of the morning with ER staff. From the reports, uncomplicated FEVAR performed on 07/14/2024 (Morales). Percutaneous bilateral common
femoral closures. No groin issues postoperatively. Discharged home 07/15/24. Patient overnight went to the bathroom and noted some oozing of blood in the left groin. Therefore presented to emergency room. No pain. On exam/he is awake and alert.
He is in no acute distress. Breathing is unlabored. Abdomen is soft. Right groin small incision clean dry and intact. Small hematoma subcutaneous, no pulsatile mass. Left groin no hematoma, groin is flat. However there is a small slow venous
appearing ooze. With even mild to moderate pressure this controls it.
Labs reviewed.
CT angiogram reviewed. Right groin postoperative likely infiltrative subcutaneous hematoma, no focal collection. No pseudoaneurysm. Left groin with no hematoma, no pseudoaneurysm. (CT scan done with sandbag in place).
Plan/ Manual pressure applied 15 to 20 minutes directly to site. Still slow ooze. Will plan placing localized suture as this likely is a subcutaneous process given the lack of findings on exam otherwise and on CT scan. However will obtain duplex
as well to rule out any subtle pseudoaneurysm.
--- NOTE | 2024-07-16 09:47 | CON.VAS ---
Consultation
Consultation Request
Performing Provider: Alexsander
Reason for Consultation: Left groin hematoma/bleeding
Medical History
-
Chief Complaint: Left groin bleeding
History of Present Illness:
83-year-old male presenting to the emergency room for left groin hematoma/bleeding. Patient is status post uncomplicated FEVAR on 07/14/[address] Morales. Patient had percutaneous bilateral femoral artery closures. No groin issues
postoperatively. Discharged yesterday. Patient noticed overnight when he went to the bathroom that there was some blood oozing from the left groin site. For this he presented to the emergency room early this morning. Denies pain.
Vascular consult for the above. Patient seen at bedside this morning with Dr. Beltre. There looks to be a small hematoma at the left groin site, nonpulsatile. Small amount of blood ooze. Easily controlled with moderate pressure.
CT angiogram reviewed by Dr. Beltre. Right groin postoperative likely infiltrative subcutaneous hematoma, no focal collection. No pseudoaneurysm. Left groin with no hematoma, no pseudoaneurysm. (CT scan done with sandbag in place).
Allergies / Home Medications
Allergy/AdvReac Type Severity Reaction Status Date / Time
No Known Allergies Allergy Verified 07/16/24 01:10
�Medication �Instructions �Recorded �Confirmed �Type
ezetimibe 10 mg tablet 10 mg PO HS High Cholesterol 12/11/12 07/16/24 History
aspirin 81 mg tablet,delayed 81 mg PO DAILY Blood Clot 07/01/23 07/16/24 History
release Prevention/Tx
metoprolol tartrate 25 mg tablet 25 mg PO BID Blood Pressure 07/01/23 07/16/24 History
valproic acid 250 mg capsule 750 mg PO HS 05/25/24 07/16/24 History
alprazolam 0.25 mg tablet 0.25 mg PO TID 07/16/24 07/16/24 History
clopidogrel 75 mg tablet 75 mg PO DAILY 07/16/24 07/16/24 History
furosemide 20 mg tablet 20 mg PO MOWEFR 07/16/24 07/16/24 History
gemfibrozil 600 mg tablet 600 mg PO BID 07/16/24 07/16/24 History
nifedipine 90 mg tablet,extended 90 mg PO DAILY 07/16/24 07/16/24 History
release
rosuvastatin 40 mg tablet 40 mg PO BID 07/16/24 07/16/24 History
tobramycin-dexamethasone 1 dose ophthalmic (eye) TID 07/16/24 07/16/24 History
Review of Systems
-
History Source: Patient
Constitutional: Reports No Symptoms
EENT: Reports No Symptoms
Respiratory: Reports No Symptoms
Cardiac: Reports No Symptoms
Vascular: Denies Leg Pain / Claudication
Abdomen/GI: Reports No Symptoms
: Reports No Symptoms
Skin: Reports Other (Left groin oozing at groin site)
Neurological: Reports No Symptoms
Endocrine: Reports No Symptoms
Physical Exam
Vital Signs
Temp Pulse Resp BP Pulse Ox
97.8 F 81 21 150/70 98
07/16/24 01:09 07/16/24 09:00 07/16/24 09:00 07/16/24 09:00 07/16/24 07:21
Lab Results
07/16/24 01:52
07/16/24 01:52
Physical Exam
General: No Apparent Distress
HEENT: Normocephalic and Atraumatic
Respiratory: Non Labored Respirations
Cardiac: Negative JVD
GI: Soft, Non Tender and Non Distended
Musculoskeletal: No Clubbing and No Cyanosis
Skin: Warm
Neuro: Awake, Alert and Oriented
Psych: Calm
Pulses: Bilateral Femoral: +2
Assessment / Plan
-
Plan/ Manual pressure applied 15 to 20 minutes directly to site. Still slow ooze. Will plan placing localized suture as this likely is a subcutaneous process given the lack of findings on exam otherwise and on CT scan. However will obtain duplex
as well to rule out any subtle pseudoaneurysm.
== END 2024-07-16 11:40 | disposition home or self-care (01) ==
LOC: EMR 01:07
PROVIDERS: EMERGENCY PHYSICIAN Emergency Medicine; FAMILY PHYSICIAN Internal Medicine; OTHER PHYSICIAN Surgery Vascular Surgery; REFERRING PHYSICIAN Surgery Vascular Surgery
DX: I97.618 Postprocedural hemorrhage of a circulatory system organ or structure following other circulatory system procedure (principal); S30.1XXA Contusion of abdominal wall, initial encounter; Y83.8 Other surgical procedures as the cause of abnormal reaction of the patient, or of later complication, without mention of misadventure at the time of the procedure; I25.10 Atherosclerotic heart disease of native coronary artery without angina pectoris; I10 Essential (primary) hypertension; E78.00 Pure hypercholesterolemia, unspecified; I70.1 Atherosclerosis of renal artery; Z95.1 Presence of aortocoronary bypass graft; Z79.02 Long term (current) use of antithrombotics/antiplatelets; Z79.82 Long term (current) use of aspirin
CPT/HCPCS: 99285; 12001; 74174; 80053; 85025; 86850; 86900; 86901; 93926; Q9967

== ENCOUNTER → 2024-09-29 11:37 | Outpatient (REF) | payer MEDICARE, BC, SELFPAY | LOC: RAD 11:37 | PROVIDERS: ATTENDING PHYSICIAN Internal Medicine; OTHER PHYSICIAN Internal Medicine | DX: M54.50 Low back pain, unspecified (principal) | CPT/HCPCS: 72100 ==

== ENCOUNTER → 2024-10-29 09:14 | Outpatient (REF) | payer MEDICARE, BC, SELFPAY ==
[2024-10-29 11:48] LABS: Blood Urea Nitrogen 25 mg/dl (9-20); Calcium 9.6 mg/dl (8.4-10.2); Carbon Dioxide 27 mmol/L (22-30); Chloride 110 mmol/L (98-107); Glucose 94 mg/dl (70-99); Potassium 4.5 mmol/L (3.5-5.1); Sodium 144 mmol/L (135-145); eGFR > 60.00
== END ==
LOC: REG 09:14
PROVIDERS: ATTENDING PHYSICIAN Physician Assistant; FAMILY PHYSICIAN Internal Medicine; REFERRING PHYSICIAN Internal Medicine
DX: I71.43 Infrarenal abdominal aortic aneurysm, without rupture (principal)
CPT/HCPCS: 36415; 80048

== ENCOUNTER → 2024-11-10 10:26 | Outpatient (REF) | payer MEDICARE, BC, SELFPAY | LOC: RAD 10:26 | PROVIDERS: ATTENDING PHYSICIAN Physician Assistant; FAMILY PHYSICIAN Internal Medicine; OTHER PHYSICIAN Surgery Vascular Surgery; REFERRING PHYSICIAN Internal Medicine | DX: I71.43 Infrarenal abdominal aortic aneurysm, without rupture (principal); I65.22 Occlusion and stenosis of left carotid artery | CPT/HCPCS: 74174; 93880; Q9967 ==

== ENCOUNTER 2025-03-08 22:54 | Inpatient (IN) | payer MEDICARE, BC, SELFPAY ==
[2025-03-08 15:24] VITALS: BP 117/55
[2025-03-08 16:02] LABS: Hematocrit 39.5 % (39.0-52.0); Hemoglobin 13.6 g/dL (13.0-18.0); Mean Corp Hgb Conc. 34.4 g/dL (33.0-37.0); Mean Corpuscular Volume 92.7 fL (80.0-94.0); Nucleated Red Blood Cells % 0 % (-); Platelet Count 137 10^3/uL (130-400); Red Cell Dist. Width 13.1 % (11.5-14.5)
[2025-03-08 16:26] LABS: ALT (SGPT) 35 U/L (0-50); AST (SGOT) 50 U/L (17-59); Albumin 3.6 g/dl (3.5-5.0); Alkaline Phosphatase 86 U/L (38-126); Blood Urea Nitrogen 21 mg/dl (9-20); Calcium 9.8 mg/dl (8.4-10.2); Carbon Dioxide 25 mmol/L (22-30); Chloride 105 mmol/L (98-107); Glucose 117 mg/dl (70-99); Potassium 4.2 mmol/L (3.5-5.1); Sodium 138 mmol/L (135-145); Total Protein 6.8 g/dl (6.3-8.2); eGFR 58.89
[2025-03-08 17:03] LABS: COVID-19 Antigen Negative (Negative)
--- NOTE | 2025-03-08 18:50 | ED.GENMED ---
History of Present Illness
General
Chief Complaint: Breathing Problem
Source: patient
Exam Limitations: none
Time Seen by Provider: 03/08/25 18:17
Nursing documentation reviewed up to this point in time: agreed with
History of Present Illness
History of Present Illness:
Patient to ED with complaint of weakness, cough, SOB. Approx 1 week ago he complained of sorethroat. He was seen by pcp 4 days ago, placed on Augmentin. Since then his cough and weakness has worsened. Reports blood tinged sputum. He was seen by
PCP today and advised to come to ED.
Past History
Past History
ED Past Medical History: CAD, CVA (TIA), HTN, Hypercholesterolemia, Seizures and Other (Chylothorax, carotid artery disease, renal artery stenosis, AAA)
ED Past Surgical History: Other (carotid artery surgery, CABG, endovascular AAA repair/stent July 13, 2024. Renal artery stenosis stenting bilaterally)
Social History
Tobacco: Non-smoker
Alcohol: None
Drug: None
Personal:
Living: with family
Employment: Retired
Family History
Family History: Other (Noncontributory)
Review of Systems
Review of Systems
Allergies reviewed?: Yes
All Other Systems: ROS reviewed and negative except as documented in HPI and ROS
Constitutional: Reports fatigue
EENT: Reports no symptoms
Respiratory: Reports cough and trouble breathing
Cardiac: Reports no symptoms
ABD/GI: Reports anorexia
: Reports no symptoms
Musculoskeletal: Reports no symptoms
Skin: Reports no symptoms
Neurological: Reports weakness
Psychiatric: Reports no symptoms
Phy Exam
General Physical Exam
General Presentation: moderate distress
General age: appears stated age
General Skin: warm and dry
General Habitus: normal
General Mental: alert
Cardiovascular Exam
Cardiovascular Exam: regular rate/rhythm
Pulmonary Exam
Pulmonary Exam: decreased breath sounds
Oxygen Status: oxygen 2 liters via NC (95%)
Cough: productive cough
Gastrointestinal Exam
Gastrointestinal Exam: normal bowel sounds, non tender, soft, no organomegaly, no pulsatile mass, non distended and no cva tenderness
Musculoskeletal Exam
Musculoskeletal Exam: full ROM, edema (Trace edema bilateral feet) and neuro vasc intact
Skin Exam
Skin Exam: normal color
Psychiatric Exam
Psychiatric Exam: normal mood/affect
Scores
Heart Failure Risk
Heart Failure Risk Score: Not Applicable
Course
Orders/Labs/Results
Orders:
Orders
03/08/25 15:27
Chest [CR Chest - 2 Views ] Routine
Comment:
Reason For Exam: cough, congestion, SOB
03/08/25 15:34
COVID-19 Antigen Urgent
Source: Nasal Swab
Complete Blood Count/With Diff Urgent
Comprehensive Metabolic Panel Urgent
NT-proBNP Urgent
Comment: ADD ON
Influenza A+B Rapid Molecular Urgent
CASH Source: Nasal Swab
Specimen Description:
03/08/25 18:56
Add On- LAB Urgent
Tests Added?: bnp
03/08/25 19:04
Ipratropium/Albuterol Sulfate [Duoneb] 3 ml INH R NOW ONE
03/08/25 20:41
0.9% Sodium Chloride 1000 ml [Nss] 1,000 ml IV BOLUS
03/08/25 20:52
CT Chest PE Study Urgent
Comment:
Reason For Exam: Dyspnea, cough with blood tinged sputum
03/08/25 22:05
CefTRIAXone [Rocephin] 1,000 mg IV NOW STA
Doxycycline [Vibramycin] 100 mg PO NOW STA
Abnormal Lab Results
03/08/25
15:34
RBC 4.26 L 10^6/uL
(4.70-6.10)
MCH 31.9 H pg
(27.0-31.0)
MPV 10.9 H fL
(7.4-10.4)
Abs Immat Gran (auto) 0.1 H 10^3/uL
(0-0.05)
Absolute Neuts (auto) 7.6 H 10^3/uL
(1.4-6.5)
Absolute Lymphs (auto) 0.4 L 10^3/uL
(1.2-3.4)
Absolute Monos (auto) 0.9 H 10^3/uL
(0.1-0.6)
Immature Gran % 0.7 H %
(0-0.5)
Neutrophils % 84.2 H %
(42.2-75.2)
Lymphocytes % 4.1 L %
(20.5-51.1)
Monocytes % 10.5 H %
(1.7-9.3)
BUN 21 H mg/dl
(9-20)
Glucose 117 H mg/dl
(70-99)
03/08/25 15:34
03/08/25 15:34
Vital Signs
Initial and Last Documented VS:
Initial Vital Signs
Temp Pulse Resp BP Pulse Ox
98.5 F 99 20 117/55 93
03/08/25 15:24 03/08/25 15:24 03/08/25 15:24 03/08/25 15:24 03/08/25 15:24
Last Documented Vital Signs
Temp Pulse Resp BP Pulse Ox
98.5 F 102 27 94/52 96
03/08/25 15:24 03/08/25 21:00 03/08/25 21:00 03/08/25 21:00 03/08/25 21:00
*Radiology
Radiology exam reviewed: radiology read reviewed
*Pulse Oximetry
SaO2: 93
Oxygen Mode of Delivery: Room air
Patient hypoxic: yes
Comment: 91% RA at rest
*Critical Care Note
Total Time (30-74mins, 75-104mins- exclusive of procedures): Not Applicable
Update Note
Update Note:
Patient to ED with report of worsening SOB, weakness. He was seen by PCP 4 days ago for sorethroat. Placed on augmentin without improvement. Now with productive cough, blood tinged. Pulse ox 91% RA at rest. Placed on 2L NC, maintaining at 96%.
Chest CT confirms right upper, middle lobe pneumonia. Will admit to hospitalist. ANtibiotics started in dept.
ED Attending Note
-
Portions of this chart may have been created with voice recognition software.� Occasional wrong word or��sound alike� substitutions may have occurred due to the inherent limitations of voice recognition software.
Discharge Plan
Departure
Patient Disposition: Admit
Date of Disposition: 03/08/25
Time of Disposition: 22:12
Presentation/result/management discussed w/ accepting MD/DO: Hospitalist
Patient with high blood pressure during this ER visit?: No
Condition: Fair
Covid-19: Not Applicable
Discharge Problem:
Pneumonia, Hypoxemia
Prescriptions:
No Action
ezetimibe 10 MG tablet
10 mg PO HS
aspirin 81 mg Tablet,Delayed Release (Dr/Ec)
81 mg PO DAILY
metoprolol tartrate 25 mg Tablet
25 mg PO BID
valproic acid 250 mg Capsule
750 mg PO HS
nifedipine 90 mg Tablet Extended Release
90 mg PO DAILY
alprazolam 0.25 mg Tablet
0.25 mg PO TID
gemfibrozil 600 mg Tablet
600 mg PO BID
furosemide 20 mg Tablet
20 mg PO MOWEFR
clopidogrel 75 mg Tablet
75 mg PO DAILY
rosuvastatin 40 mg Tablet
40 mg PO BID
tobramycin-dexamethasone
1 dose ophthalmic (eye) TID
Rx Instructions:
1 drop both eyes tid
Referrals:
Myles Gillis MD [Family Provider, Internal Medicine]
Interventions
Interventions:
*Risk Screen - Suicide Last Done: 03/08/25 15:24
*General Assessment Last Done: 03/08/25 15:24
*Neglect/Abuse Screening Last Done: 03/08/25 19:00
*ED- Fall Risk Assessment Last Done: 03/08/25 19:03
*ED COVID-19 Vaccine History Last Done: 03/08/25 19:03
*ED Influenza Vaccine History Last Done: 03/08/25 19:03
ED- Cardiac Assessment Last Done: 03/08/25 19:02
ED- Pulmonary Assessment Last Done: 03/08/25 19:02
Discharge Date and Time
Print Language: ARGENTINE
[2025-03-08 19:01] VITALS: BP 99/59
[2025-03-08 19:02] VITALS: BMI 25.3
[2025-03-08] MEDS: DUONEB 3 ML INH (19:18)
[2025-03-08 20:00] VITALS: BP 98/51
[2025-03-08 21:00] VITALS: BP 94/52
[2025-03-08] MEDS: NSS 1000 IV (21:01)
[2025-03-08 22:00] VITALS: BP 99/53
[2025-03-08] MEDS: VIBRAMYCIN 100 MG PO (22:20)
[2025-03-08] MEDS: ROCEPHIN 1000 MG IV (22:20)
--- NOTE | 2025-03-08 22:45 | HPS.HSE ---
Family Physician
-
Family Physician: Myles Gillis
Chief Complaint
-
Cough, Weakness
History of Present Illness
Patient is an 84y M with PMH significant for ASCVD, hypertension and AAA s/p repair who presents to ED complaining of cough and weakness x 5 days. Patient states that his symptoms started on . He reports cough productive of dark, yellow
mucus. He has been very weak and fatigued with poor appetite / oral intake. He denies any chest pain. No dyspnea; however, he has been quite inactive. No recent travel. No known sick contacts. Patient was seen by his PCP on and
started on Augmentin with no significant improvement in his symptoms. Today he presentd to the ED for further evaluation.
Medical History
Past Medical History
Past Medical History: Reports Other
Additional Past Medical History:
ASCVD (CAD, Carotid Disease, TIA)
AAA s/p Repair
LILLIAM s/p Bilateral Stents
Hypertension
Seizure Disorder
Past Surgical History: Reports Other
Additional Past Surgical History:
Fenestrated AAA Repair
Bilateral Renal Artery Stents
Left Carotid Stent
CABG x 2
Hernia Repairs
Cataracts
Social History
Tobacco: Former Smoker (Quit smoking 40 years ago.)
Alcohol: None
Drug: None
Family History
Family History: Not pertinent
Allergies / Home Medications
Allergies reflects when Allergies were last updated in [facility].
Home Medications with original date entered in [facility]
Allergy/Medication List:
Patient is unable to confirm his current medications - though he states that he does not believe anything has changed from his prior visits.
If medication reconciliation has not been performed, why?: Medication List N/A
Review of Systems
-
History Source: Patient
A 12 point ROS was completed and negative except as noted: Yes
Constitutional: Reports Fatigue; Denies Fever or Chills
EENT: Denies Sore Throat
Respiratory: Reports Cough; Denies Trouble Breathing
Cardiac: Denies Chest Pain or Palpitations
Abdomen/GI: Reports Anorexia; Denies Abdominal Pain, Nausea, Vomiting or Diarrhea
: Denies Dysuria or Frequency
Musculoskeletal: Denies Joint Pain or Edema
Neurological: Reports Weakness; Denies Dizzy or Headache
Physical Exam
Vital Signs
Vital Signs
Temp Pulse Resp BP Pulse Ox
98.5 F 102 27 94/52 96
03/08/25 15:24 03/08/25 21:00 03/08/25 21:00 03/08/25 21:00 03/08/25 21:00
Physical Exam
General: Other (84y M in no acute distress.)
HEENT: Moist mucous membranes and PERRLA
Respiratory: Other (Decreased BS throughout. Few coarse breath sounds at R > L base.)
Cardiac: S1/S2 and Regular Rhythm; No Murmur
GI: Soft, Non Tender, Non Distended and Normal Bowel Sounds
Musculoskeletal: No Clubbing, No Cyanosis and No Edema
Neuro: AO x 3
Laboratory Results
-
03/08/25 15:34
03/08/25 15:34
Laboratory Results
Total Bilirubin 0.7 mg/dl (0.2-1.3) 03/08/25 15:34
AST 50 U/L (17-59) 03/08/25 15:34
ALT 35 U/L (0-50) 03/08/25 15:34
Alkaline Phosphatase 86 U/L (38-126) 03/08/25 15:34
Impression/Plan
-
A/P: Patient is an 84y M with PMH significant for ASCVD, HTN and AAA s/p repair who presents to ED complaining of cough and weakness.
RLL Pneumonia
Sepsis secondary to the above
- Admit for further evaluation and treatment.
- CXR and CT show R base opacity. Patient presents with tachycardia, tachypnea and evident pneumonia.
- COVID / Flu negative in the ED.
- Abx with ceftriaxone and doxycycline.
- Supportive care including IVFs, mucolytics, etc.
- Follow for clinical improvement.
EVAN
- SCr = 1.2 compared to known baseline of 0.9.
- Likely secondary to acute illness / sepsis.
- Hold Lasix and antihypertensive medications acutely.
- IVF support overnight and follow for improvement.
ASCVD
- Stable. History of coronary disease, renal artery stenosis, carotid stenosis, prior TIA, etc.
- Continue current med regimen (need formal med rec to confirm).
- No current chest pain, etc.
Benign Hypertension
- Hold usual antihypertensive medications acutely.
- IVF support for borderline BP at present.
- Resume meds when appropriate.
AAA a/p Repair
- s/p fenestrated AAA repair 07/2024.
History of Seizures
- Stable. No recent seizure activity.
- Continue VPA.
DVT Prophylaxis: Subcut Heparin
Code Status: Full
[2025-03-08 23:00] VITALS: BP 109/67
[2025-03-09] VITALS (9 sets, daily range): BP systolic 96–143; BP diastolic 52–62; PULSE 89; O2SAT 96; BMI 24.8
[2025-03-09] MEDS: NSS 1000 IV ×2 (00:44→10:08)
--- NOTE | 2025-03-09 01:15 | PTCARENOTE ---
Pt. arrived to unit from ED via stretcher. Pt. pulled over from stretcher to bed in room 339-1 on . Pt. AAOx2, disoriented to time. Placed on tele per orders. No c/o pain. IVF started. Oriented to unit. Bed alarm placed d/t weakness and
forgetfulness. Call [facility] within reach. Plan of care ongoing.
--- NOTE | 2025-03-09 01:21 | PTCARENOTE ---
Unable to confirm meds with patient. Patient states he is unsure of dosing and would like nursing staff to discuss further with his when she visits later. Will pass along to next shift.
[2025-03-09 05:43] LABS: Hematocrit 33.4 % (39.0-52.0); Hemoglobin 11.0 g/dL (13.0-18.0); Mean Corp Hgb Conc. 32.9 g/dL (33.0-37.0); Mean Corpuscular Volume 91.8 fL (80.0-94.0); Platelet Count 118 10^3/uL (130-400); Red Cell Dist. Width 13.0 % (11.5-14.5)
[2025-03-09 06:03] LABS: Blood Urea Nitrogen 15 mg/dl (9-20); Calcium 8.5 mg/dl (8.4-10.2); Carbon Dioxide 25 mmol/L (22-30); Chloride 106 mmol/L (98-107); Estimated Creatinine Clearance 57 ml/min; Glucose 97 mg/dl (70-99); Potassium 3.5 mmol/L (3.5-5.1); Sodium 137 mmol/L (135-145); eGFR > 60.00
[2025-03-09] MEDS: MUCINEX 600 MG PO ×2 (08:10→21:14)
[2025-03-09] MEDS: LOPRESSOR 25 MG PO (08:10)
[2025-03-09] MEDS: PLAVIX 75 MG PO (08:10)
[2025-03-09] MEDS: VIBRAMYCIN 100 MG PO ×2 (08:10→21:15)
[2025-03-09] MEDS: ASPIR LOW (ENTERIC COATED) 81 MG PO (08:10)
[2025-03-09] MEDS: HEPARIN 5000 UNITS SC ×2 (08:11→21:13)
--- NOTE | 2025-03-09 10:57 | PTOTSP ---
Please order occupation therapy evaluation as pt will likely need SNF for rehab at al. Thank you.
--- NOTE | 2025-03-09 13:59 | W.PN.HOSP.TC ---
Today's Communication/Plan
-
Speech and swallow evaluation.
IV antibiotics.
Hold Lasix and antihypertensive medication.
Wean off IV fluids and monitor oral intake
Follow CBC/BMP in a.m.
Assessment / Plan
Assessment / Plan
A/P: Patient is an 84y M with PMH significant for ASCVD, HTN and AAA s/p repair who presents to ED complaining of cough and weakness.
RLL Pneumonia
Multifocal right-sided pneumonia confirmed by CT scan
Sepsis secondary to the above
- COVID / Flu negative in the ED.
- Abx with ceftriaxone and doxycycline.
- Supportive care including IVFs, mucolytics, etc.
- Follow for clinical improvement.
- Speech and swallow evaluation
EVAN
- SCr = 1.2 compared to known baseline of 0.9.
- Likely secondary to acute illness / sepsis.
- Hold Lasix and antihypertensive medications acutely.
- IVF support overnight and follow for improvement.
ASCVD
- Stable. History of coronary disease, renal artery stenosis, carotid stenosis, prior TIA, etc.
- Recent echo 12/15/2023 with preserved biventricular function LVEF 55-60%
- Continue current med regimen (need formal med rec to confirm).
- No current chest pain, etc.
Benign Hypertension
- Hold usual antihypertensive medications acutely.
- IVF support for borderline BP at present.
- Resume meds when appropriate.
AAA a/p Repair
- s/p fenestrated AAA repair 07/2024.
History of Seizures
- Stable. No recent seizure activity.
- Continue VPA.
DVT Prophylaxis: Subcut Heparin
Code Status: Full
Anticipated Discharge: 24 - 48 hours
Subjective/Interval History
-
Date of Service: March 09, 2025
Objective Data
-
Labs:
Laboratory Results
03/09/25
05:14
WBC 6.5
Hgb 11.0 L
Hct 33.4 L
Plt Count 118 L
Sodium 137
Potassium 3.5
Chloride 106
Carbon Dioxide 25
BUN 15
Creatinine 0.9
Glucose 97
Calcium 8.5
Vital Signs:
Vital Signs
Temp Pulse Resp BP Pulse Ox
99.5 F 94 18 143/59 95
03/09/25 11:00 03/09/25 11:00 03/09/25 11:00 03/09/25 11:00 03/09/25 11:00
I&O
03/08/25 03/09/25 03/10/25
06:59 06:59 06:59
Intake Total 240 / 240
Output Total 600 / 600
Balance -360 / -360
Physical Exam
-
General: Well Developed and No Apparent Distress
HEENT: Normocephalic, Atraumatic and Moist Mucous Membranes
Respiratory: Clear to Auscultation
Cardiac: Regular Rhythm and S1/S2; Negative Murmur, Rub or Gallop
GI: Soft, Nontender, Nondistended and Normal Bowel Sounds; Negative Organomegaly
Rectal: Deferred by Provider
Musculoskeletal: No Clubbing, No Cyanosis and No Edema
Skin: Negative Rash
Neuro: Nonfocal/Grossly Intact
--- NOTE | 2025-03-09 15:05 | PTOTSP ---
Speech Language Pathology
Pt seen for clinical bedside swallow evaluation. Lingual deviation to the R noted with R lingual atrophy. Pt unsure if this is baseline. Decreased lingual range of motion noted on [employer] evaluation in 2023. Wet gurgly voice noted at rest. P.O.
trials of puree, regular solids, and thin liquids provided. Adequate oral phase noted. Adequate mastication, bolus formation, and A-P transit noted with no oral residue. Delayed cough noted with consecutive sips of thin liquids. Unsure if
coughing related to mucous or aspiration.
Recommend:
(1) Flexible endoscopic evaluation of swallowing (FEES) to further evaluate pharyngeal phase of swallow function and rule out aspiration
(2) Regular solids/thin liquids until FEES completed
(3) Aspiration precautions: slow rate, single sips, sit upright
(4) Meds as tolerated
(5) [employer] to continue to follow
[2025-03-09] MEDS: LOPRESSOR PO (21:14)
[2025-03-09] MEDS: STERILE WATER FOR INJECTION 10 ML IV (21:15)
[2025-03-09] MEDS: ROCEPHIN 1000 MG IV (21:15)
[2025-03-09] MEDS: DEPAKENE 750 MG PO (21:23)
[2025-03-09] MEDS: TYLENOL 650 MG PO (23:31)
[2025-03-10 03:15] VITALS: BP 140/61
[2025-03-10 06:00] VITALS: BMI 25.0
[2025-03-10 07:36] LABS: Hematocrit 33.7 % (39.0-52.0); Hemoglobin 11.5 g/dL (13.0-18.0); Mean Corp Hgb Conc. 34.1 g/dL (33.0-37.0); Mean Corpuscular Volume 92.8 fL (80.0-94.0); Nucleated Red Blood Cells % 0 % (-); Platelet Count 125 10^3/uL (130-400); Red Cell Dist. Width 12.9 % (11.5-14.5)
[2025-03-10 08:02] VITALS: BP 140/51
[2025-03-10 08:10] LABS: Blood Urea Nitrogen 15 mg/dl (9-20); Calcium 8.1 mg/dl (8.4-10.2); Carbon Dioxide 25 mmol/L (22-30); Chloride 107 mmol/L (98-107); Estimated Creatinine Clearance 57 ml/min; Glucose 81 mg/dl (70-99); Potassium 3.2 mmol/L (3.5-5.1); Sodium 138 mmol/L (135-145); eGFR > 60.00
[2025-03-10] MEDS: ASPIR LOW (ENTERIC COATED) 81 MG PO (08:20)
[2025-03-10] MEDS: MUCINEX 600 MG PO ×2 (08:20→22:08)
[2025-03-10] MEDS: LOPRESSOR 25 MG PO ×2 (08:20→22:27)
[2025-03-10] MEDS: VIBRAMYCIN 100 MG PO ×2 (08:20→22:14)
[2025-03-10] MEDS: HEPARIN 5000 UNITS SC ×2 (08:20→22:07)
[2025-03-10] MEDS: PLAVIX 75 MG PO (08:20)
--- NOTE | 2025-03-10 09:35 | PN.CDI ---
CDI
- -
CDI:
Physician Documentation Request
Admit Date: 03/08/25 22:54
Dear Doctor Ivanna,
Please review the following and provide your response in the progress notes.
Clinical Indicators:
PN, 03/09
#RLL Pneumonia
#Sepsis secondary to the above
#EVAN
#...- SCr = 1.2 compared to known baseline of 0.9.
#...- Likely secondary to acute illness / sepsis.
Please clarify which of the following most accurately describes the status of the patient's infection:
Sepsis
Severe Sepsis
- Sepsis with associated acute organ dysfunction, such as renal or respiratory failure
- Documentation should indicate the association between the sepsis
- and the organ dysfunction
Other(please specify)
Use of terms such as suspected, likely, concern for, or probable (associated with a specific diagnosis that is being evaluated, monitored, or treated as if it exists) are acceptable and can be coded in the inpatient setting, when documented at the
time of discharge.
Thank you,
Meghana Tinoco RN BSN CCDS
CDI Specialist
Please contact via tiger text
Please use your independent medical judgment in providing your response.
[2025-03-10 11:31] VITALS: BP 128/51
--- NOTE | 2025-03-10 12:01 | CM ---
Addendum entered by Gina Varela 03/10/25 13:27:
now requested patient return to home with [facility]
she states that all their children & grand-children will be coming in from out of town and the patient's son will be staying with them for a month. Referral added in [facility] for [facility]
PLAN: Home with [facility] when stable
[facility] Fax #: [phone]
Addendum entered by Gina Varela 03/10/25 12:27:
[facility]errals sent as requested by patient/
Original Note:
Patient seen at bedside with
IA completed
Patient lives in a multi story home with , 2 steps to enter, flight to bed/bath
PLOF: Independent with cane
DME: Cane, walker, shower chair
Has had [facility] in past, denies Rehab
PT rec SNF - will review options with patient/ and give medicare.gov list
will enter referrals in caport
Denies insecurities
PCP: Myles Gillis
Pharmacy: [address], [place]
Plan: SNF, pending bed availability when stable
[2025-03-10] MEDS: KCL 40 MEQ PO (14:12)
[2025-03-10 15:03] VITALS: BP 138/54
--- NOTE | 2025-03-10 17:06 | W.PN.HOSP.TC ---
Today's Communication/Plan
-
CT scan of the head.
Continue antibiotics for pneumonia.
Monitor on a regular consistency diet and thin liquids.
Replete potassium
Observe off IV fluids
Confirm outpatient antihypertensive regimen
Physical therapy eval
Discharge planning
Assessment / Plan
Assessment / Plan
A/P: Patient is an 84y M with PMH significant for ASCVD, HTN and AAA s/p repair who presents to ED complaining of cough and weakness.
RLL Pneumonia
Multifocal right-sided pneumonia confirmed by CT scan
Sepsis ruled out
- COVID / Flu negative in the ED.
- Abx with ceftriaxone and doxycycline.
- Supportive care including IVFs, mucolytics, etc.
- Follow for clinical improvement.
- Speech and swallow evaluation including fees revealed no overt aspiration. Recommendation is to continue regular consistency diet and thin liquids.
Given garbled and thick voice, will check CT scan of the head to rule out acute abnormalities including CVA.
EVAN
- SCr = 1.2 compared to known baseline of 0.9.
- Likely secondary to acute illness
- Hold Lasix and antihypertensive medications acutely.
- Stop IV fluids and monitor.
� Hypokalemia replete and follow BMP
ASCVD
- Stable. History of coronary disease, renal artery stenosis, carotid stenosis, prior TIA, etc.
- Recent echo 12/15/2023 with preserved biventricular function LVEF 55-60%
- Continue current med regimen (need formal med rec to confirm).
- No current chest pain, etc.
Benign Hypertension
- Hold usual antihypertensive medications acutely.
- IVF support for borderline BP at present.
- Resume meds when appropriate.
AAA a/p Repair
- s/p fenestrated AAA repair 07/2024.
History of Seizures
- Stable. No recent seizure activity.
- Continue VPA.
DVT Prophylaxis: Subcut Heparin
Code Status: Full
Anticipated Discharge: 24 - 48 hours
Subjective/Interval History
-
Date of Service: March 10, 2025
Objective Data
-
Labs:
Laboratory Results
03/10/25
07:04
WBC 6.4
Hgb 11.5 L
Hct 33.7 L
Plt Count 125 L
Sodium 138
Potassium 3.2 L
Chloride 107
Carbon Dioxide 25
BUN 15
Creatinine 0.9
Glucose 81
Calcium 8.1 L
Vital Signs:
Vital Signs
Temp Pulse Resp BP Pulse Ox
99.6 F 92 16 138/54 93
03/10/25 15:03 03/10/25 15:03 03/10/25 15:03 03/10/25 15:03 03/10/25 15:03
I&O
03/09/25 03/10/25 03/11/25
06:59 06:59 06:59
Intake Total 240 / 240 600 / 600
Output Total 600 / 600 600 / 600
Balance -360 / -360 0 / 0
Physical Exam
-
General: Well Developed and No Apparent Distress
HEENT: Normocephalic, Atraumatic and Moist Mucous Membranes
Respiratory: Clear to Auscultation
Cardiac: Regular Rhythm and S1/S2; Negative Murmur, Rub or Gallop
GI: Soft, Nontender, Nondistended and Normal Bowel Sounds; Negative Organomegaly
Rectal: Deferred by Provider
Musculoskeletal: No Clubbing, No Cyanosis and No Edema
Skin: Negative Rash
Neuro: Awake, Alert, Oriented, AO x 3, No Motor Deficits, Nonfocal/Grossly Intact and Other (Garbled thick voice)
[2025-03-10 19:22] VITALS: BP 146/59
[2025-03-10] MEDS: ROCEPHIN 1000 MG IV (22:13)
[2025-03-10] MEDS: STERILE WATER FOR INJECTION 10 ML IV (22:14)
[2025-03-10] MEDS: DEPAKENE 750 MG PO (22:14)
[2025-03-10 23:08] VITALS: BP 115/49
[2025-03-11 03:13] VITALS: BP 129/50
[2025-03-11 06:15] VITALS: BMI 23.9
[2025-03-11 08:03] VITALS: BP 130/52
[2025-03-11] MEDS: VIBRAMYCIN 100 MG PO (08:22)
[2025-03-11] MEDS: MUCINEX 600 MG PO (08:23)
[2025-03-11] MEDS: PLAVIX 75 MG PO (08:23)
[2025-03-11] MEDS: LOPRESSOR 25 MG PO (08:23)
[2025-03-11] MEDS: ASPIR LOW (ENTERIC COATED) 81 MG PO (08:23)
[2025-03-11] MEDS: HEPARIN 5000 UNITS SC (08:23)
[2025-03-11 08:29] LABS: Blood Urea Nitrogen 16 mg/dl (9-20); Calcium 8.3 mg/dl (8.4-10.2); Carbon Dioxide 26 mmol/L (22-30); Chloride 108 mmol/L (98-107); Estimated Creatinine Clearance 57 ml/min; Glucose 87 mg/dl (70-99); Potassium 3.5 mmol/L (3.5-5.1); Sodium 138 mmol/L (135-145); eGFR > 60.00
[2025-03-11 11:08] VITALS: BP 125/50
--- NOTE | 2025-03-11 12:42 | CM ---
Addendum entered by Gina Varela 03/11/25 14:29:
home oxygen test completed - requires home oxygen
called Arcelia from [facility] [phone] - faxed all clinicals & script to [phone]
spoke with patient - gave her [employer] # to call once discharged
Arcelia to come to hospital to deliver portable tank
PLAN: Home with [facility] Fax #: [phone]
to transport
Original Note:
Patient seen at bedside
tt from hospitalist stable for dc
cont with oxygen
per hospitalist will order home 02 test
SNF declined wants Home with [facility] (referral in & accepted)
PLAN: Home with [facility] Fax #: [phone]
to transport
[2025-03-11] MEDS: KCL 40 MEQ PO (12:43)
--- NOTE | 2025-03-11 13:53 | W.PN.HOSP.TC ---
Today's Communication/Plan
-
Discahrge
Assessment / Plan
Assessment / Plan
A/P: Patient is an 84y M with PMH significant for ASCVD, HTN and AAA s/p repair who presents to ED complaining of cough and weakness.
RLL Pneumonia
Acute hypoxic respiratory failure due to above
Multifocal right-sided pneumonia confirmed by CT scan
Sepsis ruled out
- COVID / Flu negative in the ED.
- Abx with ceftriaxone and doxycycline.
- Supportive care including IVFs, mucolytics, etc.
- Follow for clinical improvement.
- Speech and swallow evaluation including fees revealed no overt aspiration. Recommendation is to continue regular consistency diet and thin liquids.
CT head with no acute abnormalities
Transition to oral antibiotics, Augmentin upon dc to complete total 10 days of treatment.
Patient is in need of oxygen at 2 liters/minute via nasal cannula on ambulation due to pulse oximetry of 86% on room air at rest. Oxygen will help to improve hypoxemia. Patient is mobile within the home. DuoNeb therapy has been tried and is
ineffective in treating hypoxemia related symptoms. Oxygen is needed to improve symptoms.
EVAN
- SCr = 1.2 compared to known baseline of 0.9.
- Likely secondary to acute illness
- Hold Lasix and antihypertensive medications acutely.
- Stop IV fluids and monitor.
� Hypokalemia replete and follow BMP
ASCVD
- Stable. History of coronary disease, renal artery stenosis, carotid stenosis, prior TIA, etc.
- Recent echo 12/15/2023 with preserved biventricular function LVEF 55-60%
- Continue current med regimen (need formal med rec to confirm).
- No current chest pain, etc.
Benign Hypertension
- Hold usual antihypertensive medications acutely.
- IVF support for borderline BP at present.
- Resume meds when appropriate.
AAA a/p Repair
- s/p fenestrated AAA repair 07/2024.
History of Seizures
- Stable. No recent seizure activity.
- Continue VPA.
DVT Prophylaxis: Subcut Heparin
Code Status: Full
Anticipated Discharge: Today
Subjective/Interval History
-
Date of Service: March 11, 2025
Objective Data
-
Labs:
Laboratory Results
03/11/25
07:00
Sodium 138
Potassium 3.5
Chloride 108 H
Carbon Dioxide 26
BUN 16
Creatinine 0.9
Glucose 87
Calcium 8.3 L
Vital Signs:
Vital Signs
Temp Pulse Resp BP Pulse Ox
98.5 F 71 14 125/50 94
03/11/25 11:08 03/11/25 11:08 03/11/25 11:08 03/11/25 11:08 03/11/25 11:08
I&O
03/10/25 03/11/25 03/12/25
06:59 06:59 06:59
Intake Total 600 / 600 720 / 720 480 / 480
Output Total 600 / 600 300 / 300 200 / 200
Balance 0 / 0 420 / 420 280 / 280
Physical Exam
-
General: Well Developed and No Apparent Distress
HEENT: Normocephalic, Atraumatic and Moist Mucous Membranes
Respiratory: Clear to Auscultation
Cardiac: Regular Rhythm and S1/S2; Negative Murmur, Rub or Gallop
GI: Soft, Nontender, Nondistended and Normal Bowel Sounds; Negative Organomegaly
Rectal: Deferred by Provider
Musculoskeletal: No Clubbing, No Cyanosis and No Edema
Skin: Negative Rash
Neuro: Awake, Alert, Oriented, AO x 3, No Motor Deficits, Nonfocal/Grossly Intact and Other (Garbled thick voice)
[2025-03-11 15:09] VITALS: BP 120/60
--- NOTE | 2025-03-12 08:22 | W.DS.TRANS ---
DC Summary - Automatic Mounter
-
Discharge Instructions:
Sleep Apnea Risk Intermediate
Discharge Diagnosis/Procedures Pneumonia
Respiratory failure
Diet Regular
Others Tests CXR in 4-6 weeks
Instructions:
Stand-Alone Forms:
Changes to Home Medications: Yes
Discharge Medications:
DC Medications w/original date entered in [email or web address]
ezetimibe 10 mg tablet 10 mg PO HS High Cholesterol 12/11/12
aspirin 81 mg tablet,delayed release 81 mg PO DAILY Blood Clot Prevention/Tx 07/01/23
metoprolol tartrate 25 mg tablet 25 mg PO BID Blood Pressure 07/01/23
valproic acid 250 mg capsule 750 mg PO HS 05/25/24
alprazolam 0.25 mg tablet 0.25 mg PO TID 07/16/24
clopidogrel 75 mg tablet 75 mg PO DAILY 07/16/24
furosemide 20 mg tablet 20 mg PO MOWEFR 07/16/24
gemfibrozil 600 mg tablet 600 mg PO BID 07/16/24
nifedipine 90 mg tablet,extended release 90 mg PO DAILY 07/16/24
rosuvastatin 40 mg tablet 40 mg PO BID 07/16/24
tobramycin-dexamethasone 1 dose ophthalmic (eye) TID 07/16/24
amoxicillin 875 mg-potassium clavulanate 125 mg tablet 1 tab PO BID #14 tabs 03/11/25
Home Medication Changes
Antibiotics
Pending Results: No
== END 2025-03-11 16:10 | disposition home health service (06) | DRG 193 ==
LOC: 3 WEST ACU 22:54
PROVIDERS: Emergency Medicine; ADMITTING PHYSICIAN Hospitalist; ATTENDING PHYSICIAN Internal Medicine; EMERGENCY PHYSICIAN Student in an Organized Health Care Education/Training Program; FAMILY PHYSICIAN Internal Medicine
DX: J18.9 Pneumonia, unspecified organism (principal); J96.01 Acute respiratory failure with hypoxia; N17.9 Acute kidney failure, unspecified; I25.10 Atherosclerotic heart disease of native coronary artery without angina pectoris; Z86.79 Personal history of other diseases of the circulatory system; I10 Essential (primary) hypertension; E87.6 Hypokalemia; G40.909 Epilepsy, unspecified, not intractable, without status epilepticus; Z95.1 Presence of aortocoronary bypass graft; Z87.891 Personal history of nicotine dependence; I70.1 Atherosclerosis of renal artery; Z86.73 Personal history of transient ischemic attack (TIA), and cerebral infarction without residual deficits; E78.00 Pure hypercholesterolemia, unspecified; Z11.52 Encounter for screening for COVID-19
CPT/HCPCS: 70450; 71046; 71275; 80048; 80053; 83880; 85025; 85027; 87502; 87811; 92610; 92612; 94667; 94668; 97116; 97163; 99285; Q9967

== ENCOUNTER → 2025-04-12 12:36 | Outpatient (REF) | payer MEDICARE, BC, SELFPAY | LOC: RAD 12:36 | PROVIDERS: ATTENDING PHYSICIAN Internal Medicine | DX: J18.9 Pneumonia, unspecified organism (principal) | CPT/HCPCS: 71046 ==